=== PATIENT | female | born 1970 | race Caucasian/White ===

== ENCOUNTER 2018-06-30 17:29 | Inpatient (IN) | payer OTHER ==
[~2018-06-30] VITALS: Ht 162.6 cm; Wt 105.2 kg
[~2018-06-30 17:29] MED LIST: ACET500T68 PO; AMIN30LI24 PO; ARGI1POW23 PO; ASCO500T2 PO; BACL10TA PO; BISA10SU2 RC; BUSP15TA PO; CETI10TA16 PO; CITA10TA4 PO; CLOT12CR2 TP; CYAN10002 IM; DAPT350V IV; ERTA1VIA IJ; HYDR28OI2 TP; IRON1CAP27 PO; LACT1CAP21 PO; LACT20SO PO; MULT-638 PO; NA P133E2 RC; NORT25CA PO; OXYC20TA34 PO; OXYC20TA42 PO; OXYC30TA21 PO; PANT20TA2 PO; PEG15DRO5 OP; SALI10002 MM; SENN1TAB9 PO; SILV20CR14 TP; ZINC220C5 PO
[2018-06-30] MEDS ORDERED: IV NORMAL SALINE 1000ML BAG 1,000 ML IV SCH (18:19)
[2018-06-30] MEDS ORDERED: ONDANSETRON PF 4 MG/2 ML VIAL. IV ONE (18:30)
[2018-06-30] MEDS ORDERED: HYDROmorphone 2 MG/ML VIAL IV ONE (18:30)
[2018-06-30] MEDS ORDERED: ALTEPLASE 2 MG VIAL INT CAT ONE (18:45)
--- NOTE | 2018-06-30 18:51 | PHYS DOC ---
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 OSTEOMYELITIS Past Surgical History: No Surgical History Additional Past Surgical Histo: SUPRAPUBIC CATHETER INSERTION Alcohol Use: None Drug Use: Opiates Social History Narrative: OPIATES FOR PAIN CONTROL AT [facility] Adult General Chief Complaint Chief Complaint: URINE CATHETER PROBLEM HPI HPI Patient is a 47-year-old female who presents with report that she has not had any urine from her catheter for the last 3 days. Patient states that she has a history of transverse myelitis and is paraplegic. She states that she recently had a suprapubic catheter placed which had been working well until about 3 days ago. She states that about a week ago she had told the staff at the facility she is a resident at that she thought she had a urinary tract infection and requested them to check her urine but they did not do so. She does indicate that she has an increase in pain in her abdomen as well as her lower back. She states that pain has not been managed with her current regimen of pain medications. Patient does not believe that she has been running a fever. Patient also states that she has been constipated and has not had a bowel movement for the last week. Patient rates her pain at an 8 out of 10. She states that nothing has been improving the pain. She states that since her catheter has not been draining that she has had urine drainage around the outside of the catheter. She states that it has gotten to the point now where her skin is very irritated. Review of Systems Review of Systems Constitutional: Denies fever or chills [] Respiratory: Denies cough or shortness of breath [] Cardiovascular: Denies chest pain[] GI: Complains of abdominal pain with nausea. Denies vomiting or diarrhea. Reports constipation.[] : Complains of urinary retention despite presence of suprapubic catheter[] Musculoskeletal: Complains of lower back pain[] Integument: Complains of rash to the lower abdomen and perineal region.[] All other systems were reviewed and found to be within normal limits, except as documented in this note. Current Medications Current Medications Current Medications Medications (Trade) Dose Ordered Sig/Ren Start Time Stop Time Status Last Admin Dose Admin Acetaminophen (Tylenol) 1,000 mg 1X ONCE 06/30/18 20:30 06/30/18 20:31 DC 10/24/18 20:28 1,000 MG Alteplase, Recombinant (Cathflo) 2 mg 1X ONCE 06/30/18 18:45 06/30/18 18:46 DC 06/30/18 18:40 2 MG Ceftriaxone Sodium 50 ml @ 100 mls/hr 1X ONCE 06/30/18 20:15 06/30/18 20:44 DC 06/30/18 20:07 100 MLS/HR Hydromorphone HCl (Dilaudid) 2 mg 1X ONCE 06/30/18 18:30 06/30/18 18:31 DC 06/30/18 18:39 2 MG Ondansetron HCl (Zofran) 4 mg 1X ONCE 06/30/18 18:30 06/30/18 18:31 DC 06/30/18 18:39 4 MG Sodium Chloride 1,000 ml @ 1,000 mls/hr Q1H 06/30/18 18:19 06/30/18 19:18 DC 06/30/18 18:39 1,000 MLS/HR Allergies Allergies Allergies Coded Allergies Type Severity Reaction Last Updated Verified codeine Allergy Intermediate 04/22/18 Yes fentanyl Allergy Intermediate 04/22/18 Yes metronidazole Allergy Intermediate 04/22/18 Yes morphine Allergy Intermediate 04/22/18 Yes piperacillin Allergy Intermediate 04/22/18 Yes tazobactam Allergy Intermediate 04/22/18 Yes tramadol Allergy Intermediate 04/22/18 Yes I S O L A T I O N *CONTACT* Allergy Unknown 04/26/18 Yes Physical Exam Physical Exam Constitutional: Well developed, well nourished, no acute distress, non-toxic appearance. [] HENT: Normocephalic, atraumatic, bilateral external ears normal, oropharynx moist, no oral exudates, nose normal. [] Eyes: PERRLA, EOMI, conjunctiva normal, no discharge. [] Neck: Normal range of motion, no tenderness, supple, no stridor. [] Cardiovascular:Heart rate regular rhythm [] Lungs & Thorax: Bilateral breath sounds clear to auscultation [] Abdomen: Bowel sounds normal, soft, with lower abdominal tenderness. [] Skin: Warm, dry. [] Extremities: No tenderness, no cyanosis, no clubbing, no edema. [] Neurologic: Alert and oriented X 3. [] Current Patient Data Vital Signs Vital Signs Date Time Temp Pulse Resp B/P (MAP) Pulse Ox O2 Delivery O2 Flow Rate FiO2 06/30/18 18:39 18 99 Room Air 06/30/18 17:40 98.0 90 139/67 (91) 98.0 Lab Values Laboratory Tests Test 06/30/18 19:00 06/30/18 19:30 Urine Collection Type U cath Urine Color Yellow Urine Clarity Cloudy Urine pH 7.0 Urine Specific Blue 1.020 Urine Protein 30 mg/dL (NEG-TRACE) Urine Glucose (UA) Negative mg/dL (NEG) Urine Ketones (Stick) Negative mg/dL (NEG) Urine Blood Large (NEG) Urine Nitrite Positive (NEG) Urine Bilirubin Negative (NEG) Urine Urobilinogen Dipstick 1.0 mg/dL (0.2 mg/dL) Urine Leukocyte Esterase Large (NEG) Urine RBC 20-40 /HPF (0-2) Urine WBC Tntc /HPF (0-4) Urine Squamous Epithelial Cells Mod /LPF Urine Bacteria Many /HPF (0-FEW) Urine Mucus Slight /LPF White Blood Count 6.7 x10^3/uL (4.0-11.0) Red Blood Count 4.40 x10^6/uL (3.50-5.40) Hemoglobin 12.0 g/dL (12.0-15.5) Hematocrit 36.7 % (36.0-47.0) Mean Corpuscular Volume 83 fL (79-100) Mean Corpuscular Hemoglobin 27 pg (25-35) Mean Corpuscular Hemoglobin Concent 33 g/dL (31-37) Red Cell Distribution Width 16.5 % (11.5-14.5) H Platelet Count 386 x10^3/uL (140-400) Neutrophils (%) (Auto) 57 % (31-73) Lymphocytes (%) (Auto) 29 % (24-48) Monocytes (%) (Auto) 5 % (0-9) Eosinophils (%) (Auto) 6 % (0-3) H Basophils (%) (Auto) 3 % (0-3) Neutrophils # (Auto) 3.8 x10^3uL (1.8-7.7) Lymphocytes # (Auto) 2.0 x10^3/uL (1.0-4.8) Monocytes # (Auto) 0.3 x10^3/uL (0.0-1.1) Eosinophils # (Auto) 0.4 x10^3/uL (0.0-0.7) Basophils # (Auto) 0.2 x10^3/uL (0.0-0.2) Sodium Level 142 mmol/L (136-145) Potassium Level 3.6 mmol/L (3.5-5.1) Chloride Level 104 mmol/L (98-107) Carbon Dioxide Level 30 mmol/L (21-32) Anion Gap 8 (6-14) Blood Urea Nitrogen 7 mg/dL (7-20) Creatinine 0.5 mg/dL (0.6-1.0) L Estimated GFR (Cockcroft-Gault) 133.4 BUN/Creatinine Ratio 14 (6-20) Glucose Level 94 mg/dL (70-99) Calcium Level 9.0 mg/dL (8.5-10.1) Total Bilirubin 0.2 mg/dL (0.2-1.0) Aspartate Amino Transferase (AST) 16 U/L (15-37) Alanine Aminotransferase (ALT) 21 U/L (14-59) Alkaline Phosphatase 136 U/L (46-116) H Total Protein 8.0 g/dL (6.4-8.2) Albumin 3.1 g/dL (3.4-5.0) L Albumin/Globulin Ratio 0.6 (1.0-1.7) L Laboratory Tests 06/30/18 19:30 Laboratory Tests 06/30/18 19:30 EKG EKG [] Radiology/Procedures Radiology/Procedures [] Course & Med Decision Making Course & Med Decision Making Pertinent Labs and Imaging studies reviewed. (See chart for details) [] Dragon Disclaimer Dragon Disclaimer This electronic medical record was generated, in whole or in part, using a voice recognition dictation system. Departure Departure Impression: Primary Impression: Urinary tract infection associated with catheterization of urinary tract Additional Impression: Complication, suprapubic catheter obstruction Disposition: ADMITTED INPATIENT Admitting Physician: Iliana Baires Condition: IMPROVED Referrals: NO PCP (PCP) Problem Qualifiers Primary Impression: Urinary tract infection associated with catheterization of urinary tract Indwelling urinary catheter type: unspecified Encounter type: initial encounter Qualified Codes: T83.511A - Infection and inflammatory reaction due to indwelling urethral catheter, initial encounter; N39.0 - Urinary tract infection, site not specified Additional Impression: Complication, suprapubic catheter obstruction Encounter type: initial encounter Qualified Codes: T83.090A - Other mechanical complication of cystostomy catheter, initial encounter FRANCISCO JAVIER VALENCIA Jr., DO Jun 30, 2018 18:51
[2018-06-30 19:14] LABS: BILIRUBIN,URINE NEGATIVE (NEG); CLARITY,URINE CLOUDY; COLOR,URINE YELLOW; NITRITE,URINE POSITIVE (NEG); PROTEIN,URINE 30 mg/dL (NEG-TRACE)
[2018-06-30 19:19] LABS: BACTERIA,URINE MANY /HPF (0-FEW); RBC,URINE 20-40 /HPF (0-2); SQUAMOUS EPITHELIAL CELL,UR MOD /LPF; WBC,URINE TNTC /HPF (0-4)
[2018-06-30 19:43] LABS: BASO # 0.2 x10^3/uL (0.0-0.2); BASO % 3 % (0-3); EOS # 0.4 x10^3/uL (0.0-0.7); EOS % 6 % (0-3); HEMATOCRIT 36.7 % (36.0-47.0); LYMPH % 29 % (24-48); MEAN CORPUSCULAR HEMOGLOBIN 27 pg (25-35); MEAN CORPUSCULAR HGB CONC 33 g/dL (31-37); MEAN CORPUSCULAR VOLUME 83 fL (79-100); MONO # 0.3 x10^3/uL (0.0-1.1); MONO % 5 % (0-9); NEUT # 3.8 x10^3uL (1.8-7.7); NEUT % 57 % (31-73); PLATELET COUNT 386 x10^3/uL (140-400); RED CELL DISTRIBUTION WIDTH 16.5 % (11.5-14.5); WHITE BLOOD COUNT 6.7 x10^3/uL (4.0-11.0)
[2018-06-30 19:50] LABS: CREATININE 0.5 mg/dL (0.6-1.0); GFR 133.4; POTASSIUM 3.6 mmol/L (3.5-5.1)
[2018-06-30 19:56] LABS: ALBUMIN 3.1 g/dL (3.4-5.0); ALBUMIN/GLOBULIN RATIO 0.6 (1.0-1.7); TOTAL BILIRUBIN 0.2 mg/dL (0.2-1.0)
[2018-06-30] MEDS ORDERED: ACETAMINOPHEN 500 MG TABLET PO ONE (20:30)
[2018-06-30] MEDS ORDERED: ONDANSETRON PF 4 MG/2 ML VIAL. IV PRN (22:15)
[2018-06-30] MEDS: HYDROmorphone 2 MG/ML VIAL IV PRN (22:49)
[2018-06-30 23:22] VITALS: BP 132/68
[2018-07-01 04:00] VITALS: BP 102/58
[2018-07-01] MEDS: ACETAMINOPHEN 325 MG TABLET. PO PRN ×2 (04:30→12:34)
[2018-07-01 07:00] VITALS: BP 90/51
[2018-07-01] MEDS: oxyCODONE ER 10 MG TAB.ER.12H PO SCH ×2 (08:20→21:45)
[2018-07-01] MEDS ORDERED: VANCOMYCIN 1 GM in IV NORMAL SALINE 250ML 250 ML IV ONE (10:30)
[2018-07-01] MEDS ORDERED: cefTRIAXone IV Push 1 GM VIAL. IVP SCH (10:45)
[2018-07-01] MEDS ORDERED: VANCOMYCIN PER PHARMACY MC PRN (10:45)
--- NOTE | 2018-07-01 10:47 | PDOC ---
Infectious Disease Note Vital Sign Vital Signs Vital Signs Date Time Temp Pulse Resp B/P (MAP) Pulse Ox O2 Delivery O2 Flow Rate FiO2 07/01/18 08:20 18 Room Air 07/01/18 07:00 98.8 110 90/51 (64) 93 98.8 Labs Lab Laboratory Tests Test 06/30/18 19:00 06/30/18 19:30 07/01/18 04:45 Urine Collection Type U cath Urine Color Yellow Urine Clarity Cloudy Urine pH 7.0 Urine Specific [place] 1.020 Urine Protein 30 mg/dL (NEG-TRACE) Urine Glucose (UA) Negative mg/dL (NEG) Urine Ketones (Stick) Negative mg/dL (NEG) Urine Blood Large (NEG) Urine Nitrite Positive (NEG) Urine Bilirubin Negative (NEG) Urine Urobilinogen Dipstick 1.0 mg/dL (0.2 mg/dL) Urine Leukocyte Esterase Large (NEG) Urine RBC 20-40 /HPF (0-2) Urine WBC Tntc /HPF (0-4) Urine Squamous Epithelial Cells Mod /LPF Urine Bacteria Many /HPF (0-FEW) Urine Mucus Slight /LPF White Blood Count 6.7 x10^3/uL (4.0-11.0) Red Blood Count 4.40 x10^6/uL (3.50-5.40) Hemoglobin 12.0 g/dL (12.0-15.5) Hematocrit 36.7 % (36.0-47.0) Mean Corpuscular Volume 83 fL (79-100) Mean Corpuscular Hemoglobin 27 pg (25-35) Mean Corpuscular Hemoglobin Concent 33 g/dL (31-37) Red Cell Distribution Width 16.5 % (11.5-14.5) Platelet Count 386 x10^3/uL (140-400) Neutrophils (%) (Auto) 57 % (31-73) Lymphocytes (%) (Auto) 29 % (24-48) Monocytes (%) (Auto) 5 % (0-9) Eosinophils (%) (Auto) 6 % (0-3) Basophils (%) (Auto) 3 % (0-3) Neutrophils # (Auto) 3.8 x10^3uL (1.8-7.7) Lymphocytes # (Auto) 2.0 x10^3/uL (1.0-4.8) Monocytes # (Auto) 0.3 x10^3/uL (0.0-1.1) Eosinophils # (Auto) 0.4 x10^3/uL (0.0-0.7) Basophils # (Auto) 0.2 x10^3/uL (0.0-0.2) Sodium Level 142 mmol/L (136-145) Potassium Level 3.6 mmol/L (3.5-5.1) Chloride Level 104 mmol/L (98-107) Carbon Dioxide Level 30 mmol/L (21-32) Anion Gap 8 (6-14) Blood Urea Nitrogen 7 mg/dL (7-20) Creatinine 0.5 mg/dL (0.6-1.0) Estimated GFR (Cockcroft-Gault) 133.4 BUN/Creatinine Ratio 14 (6-20) Glucose Level 94 mg/dL (70-99) Calcium Level 9.0 mg/dL (8.5-10.1) Total Bilirubin 0.2 mg/dL (0.2-1.0) Aspartate Amino Transf (AST/SGOT) 16 U/L (15-37) Alanine Aminotransferase (ALT/SGPT) 21 U/L (14-59) Alkaline Phosphatase 136 U/L (46-116) Total Protein 8.0 g/dL (6.4-8.2) Albumin 3.1 g/dL (3.4-5.0) Albumin/Globulin Ratio 0.6 (1.0-1.7) Lactic Acid Level 1.6 mmol/L (0.4-2.0) Micro Microbiology 06/30/18 Blood Culture - Final, Complete Objective Assessment G neg sepsis UTI with sepsis H/O Sacral osteomyelitis Paraplegia Fever Plan Plan of Care d/c vanc and rocephine meropenem check cultures supportive care fluids ARTURO RIVERA MD Jul 01, 2018 10:47
--- NOTE | 2018-07-01 10:54 | PDOC1 ---
History and Physical Date of Admission Date of Admission DATE: 07/01/18 TIME: 10:54 Identification/Chief Complaint Chief Complaint presented to ER with report that she has not had any urine from her catheter for the last 3 days. has a history of transverse myelitis and is paraplegic. She states that she recently had a suprapubic catheter placed She states that about a week ago she had told the staff at the facility she is a resident at that she thought she had a urinary tract infection and requested them to check her urine but they did not do so. 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 OSTEOMYELITIS Past Surgical History: No Surgical History Additional Past Surgical Histo: SUPRAPUBIC CATHETER INSERTION 2017 Alcohol Use: None Drug Use: Opiates Social History Narrative: OPIATES FOR PAIN CONTROL AT [facility] Cardiovascular: CHF, HTN CENTRAL NERVOUS SYSTEM: Other Musculoskeletal: Muscle atrophy, Weakness, Other Renal/: Other Past Surgical History Past Surgical History: Other, No pertinent history Family History Family History: Cancer, Heart Disease Social History Smoke: No ALCOHOL: none Drugs: None Current Problem List Problem List Problems Medical Problems: (1) Complication, suprapubic catheter obstruction Status: Acute (2) Urinary tract infection associated with catheterization of urinary tract Status: Acute Current Medications Current Medications Current Medications Sodium Chloride 1,000 ml @ 1,000 mls/hr Q1H IV Last administered on at 18:39; Start 06/30/18 at 18:19; Stop 06/30/18 at 19:18; Status DC Hydromorphone HCl (Dilaudid) 2 mg 1X ONCE IV Last administered on 06/30/18at 18:39; Start 06/30/18 at 18:30; Stop 06/30/18 at 18:31; Status DC Ondansetron HCl (Zofran) 4 mg 1X ONCE IV Last administered on 06/30/18at 18:39 ; Start 06/30/18 at 18:30; Stop 06/30/18 at 18:31; Status DC Alteplase, Recombinant (Cathflo) 2 mg 1X ONCE INT CAT Last administered on at 18:40; Start 06/30/18 at 18:45; Stop 06/30/18 at 18:46; Status DC Ceftriaxone Sodium 50 ml @ 100 mls/hr 1X ONCE IV Last administered on at 20:07; Start 06/30/18 at 20:15; Stop 06/30/18 at 20:44; Status DC Acetaminophen (Tylenol) 1,000 mg 1X ONCE PO Last administered on 06/30/18at 20 :28; Start 06/30/18 at 20:30; Stop 06/30/18 at 20:31; Status DC Hydromorphone HCl (Dilaudid) 0.5 mg PRN Q4HRS PRN IV PAIN Last administered on 06/30/18at 22:49; Start 06/30/18 at 22:15 Ondansetron HCl (Zofran) 4 mg PRN Q6HRS PRN IV NAUSEA/VOMITING; Start at 22:15 Oxycodone HCl (Roxicodone) 30 mg PRN Q4HRS PRN PO PAIN SEVERE Last administered on 07/01/18at 06:23; Start 06/30/18 at 23:45 Oxycodone HCl (OxyCONTIN) 20 mg Q12HR PO Last administered on 07/01/18at 08:20 ; Start 07/01/18 at 09:00 Acetaminophen (Tylenol) 650 mg PRN Q6HRS PRN PO FEVER Last administered on at 04:30; Start 07/01/18 at 04:15 Vancomycin HCl 1 gm/Sodium Chloride 250 ml @ 250 mls/hr 1X ONCE IV ; Start at 10:30; Stop 07/01/18 at 11:29; Status UNV Ceftriaxone Sodium 1 gm/ Dextrose 50 ml @ 100 mls/hr Q12H IV ; Start 07/01/18 at 10:30; Status UNV Ceftriaxone Sodium (Rocephin) 1 gm Q12H IVP ; Start 07/01/18 at 10:45; Stop at 10:45; Status DC Vancomycin HCl (Vanco Per Pharmacy) 1 each PRN DAILY PRN MC SEE COMMENTS; Start 07/01/18 at 10:45; Stop 07/01/18 at 10:45; Status DC Vancomycin HCl 2 gm/Sodium Chloride 500 ml @ 250 mls/hr 1X ONCE IV ; Start at 11:00; Stop 07/01/18 at 12:59 Meropenem 500 mg/ Sodium Chloride 50 ml @ 100 mls/hr Q8HRS IV ; Start at 11:00 Active Scripts Active Reported Silvadene (Silver Sulfadiazine) 20 Gm Cream..g. 1 Lisa TP DAILY Lotrimin Af (Clotrimazole) 12 Gm Cream..g. 1 Lisa TP PRN BID PRN Hydrocortisone (Hydrocortisone Acetate) 28 Gm Oint...g. 28 Gm TP PRN TID PRN Cyanocobalamin Injection (Cyanocobalamin (Vitamin B-12)) 1,000 Mcg/1 Ml Vial 1 Ml IM QMONTH Visine Tears Drops (Peg 400/Hypromellose/Glycerin) 15 Ml Drops 15 Ml OP PRN Q2HR PRN Lactulose 20 Gm/30 Ml Solution 10 Gm PO PRN BID PRN Fleet Enema (Na Phos,M-B/Na Phos,Di-Ba) 133 Ml Enema 133 Ml RC PRN PRN Bisacodyl 10 Mg Supp.rect 10 Mg RC PRN DAILY PRN Biotene (Saliva Substitution Combo No.9) 1,000 Ml Mouthwash 1,000 Ml MM PRN Q2HR PRN Baclofen 10 Mg Tablet 1 Tab PO PRN TID PRN Acetaminophen 500 Mg Tablet 2 Tab PO PRN Q6HRS PRN Zinc Sulfate 220 Mg Capsule 220 Mg PO QHS Thera M Plus Tablet (Multivits,Ca,Minerals/Iron/FA) 1 Each Tablet 1 Each PO QHS Nortriptyline Hcl 25 Mg Capsule 1 Cap PO QHS Citalopram Hbr (Citalopram Hydrobromide) 10 Mg Tablet 1 Tab PO QHS Buspirone Hcl 15 Mg Tablet 7.5 Tab PO TID Vitamin C (Ascorbic Acid) 500 Mg Tablet 500 Mg PO BID Senexon-S Tablet (Sennosides/Docusate Sodium) 1 Each Tablet 2 Each PO BID Prosource No Carb Liquid Pkt (Amino Acids/Protein Hydrolys) 30 Ml Liquid.pkt 30 Ml PO BID [place] Packet (Argin/Glut/Cahmb/Collag/Mv-Min) 1 Each Powd.pack 1 Each PO BID Culturelle (Lactobacillus Rhamnosus Gg) 1 Each Capsule 1 Each PO BID Poly-Iron 150 Forte Capsule (Iron Ps Cmplx/Vit B12/Fa) 1 Each Capsule 1 Each PO DAILY Protonix (Pantoprazole Sodium) 20 Mg Tablet.dr 40 Mg PO DAILY Cetirizine Hcl 10 Mg Tablet 1 Tab PO DAILY Roxicodone (Oxycodone Hcl) 30 Mg Tablet 30 Mg PO Q4HRS PRN Oxycontin (Oxycodone HCl) 20 Mg Tab.er.12h 20 Mg PO BID Allergies Allergies: Coded Allergies: codeine (Verified Allergy, Intermediate, 04/22/18) fentanyl (Verified Allergy, Intermediate, 04/22/18) metronidazole (Verified Allergy, Intermediate, 04/22/18) morphine (Verified Allergy, Intermediate, 04/22/18) piperacillin (Verified Allergy, Intermediate, 04/22/18) tazobactam (Verified Allergy, Intermediate, 04/22/18) tramadol (Verified Allergy, Intermediate, 04/22/18) I S O L A T I O N *CONTACT* (Verified Allergy, Unknown, 04/26/18) VRE, ESBL adhesive (Verified Allergy, Unknown, 07/01/18) ROS Review of System Review of Systems Review of Systems Constitutional: fever , chills [] Respiratory: Denies cough or shortness of breath [] Cardiovascular: Denies chest pain[] GI: Complains of abdominal pain with nausea. Denies vomiting or diarrhea. Reports constipation.[] : Complains of urinary retention despite presence of suprapubic catheter[] Musculoskeletal: Complains of lower back pain[] Integument: Complains of rash to the lower abdomen and perineal region.[] 14 pt systems were reviewed and found to be within normal limits, except as documented. Genitourinary: YES Retention Physical Exam Physical Exam Physical Exam Physical Exam Constitutional: Well developed, well nourished, mild acute distress, non-toxic appearance. [] HENT: Normocephalic, atraumatic, bilateral external ears normal, oropharynx moist, no oral exudates, nose normal. [] Eyes: PERRLA, EOMI, conjunctiva normal, no discharge. [] Neck: Normal range of motion, no tenderness, supple, no stridor. [] Cardiovascular:Heart rate regular rhythm [] Lungs & Thorax: Bilateral breath sounds clear to auscultation [] Abdomen: Bowel sounds normal, soft, with lower abdominal tenderness. [] Skin: Warm, dry. [] Extremities: No tenderness, no cyanosis, no clubbing, no edema. [] Neurologic: Alert and oriented X 3. [] General: Oriented X3, Cooperative HEENT: Atraumatic, PERRLA Lungs: Clear to auscultation Heart: S1S2 PELVIC: Examination not indicated Extremities: No clubbing, No cyanosis Neuro: Cranial nerves 3-12 NL Psych/Mental Status: Mental status NL, Mood NL Vitals Vitals Vital Signs Date Time Temp Pulse Resp B/P (MAP) Pulse Ox O2 Delivery O2 Flow Rate FiO2 07/01/18 08:20 18 Room Air 07/01/18 07:00 98.8 110 90/51 (64) 93 98.8 Labs Labs Laboratory Tests Test 06/30/18 19:00 06/30/18 19:30 07/01/18 04:45 Urine Collection Type U cath Urine Color Yellow Urine Clarity Cloudy Urine pH 7.0 Urine Specific Rule 1.020 Urine Protein 30 mg/dL (NEG-TRACE) Urine Glucose (UA) Negative mg/dL (NEG) Urine Ketones (Stick) Negative mg/dL (NEG) Urine Blood Large (NEG) Urine Nitrite Positive (NEG) Urine Bilirubin Negative (NEG) Urine Urobilinogen Dipstick 1.0 mg/dL (0.2 mg/dL) Urine Leukocyte Esterase Large (NEG) Urine RBC 20-40 /HPF (0-2) Urine WBC Tntc /HPF (0-4) Urine Squamous Epithelial Cells Mod /LPF Urine Bacteria Many /HPF (0-FEW) Urine Mucus Slight /LPF White Blood Count 6.7 x10^3/uL (4.0-11.0) Red Blood Count 4.40 x10^6/uL (3.50-5.40) Hemoglobin 12.0 g/dL (12.0-15.5) Hematocrit 36.7 % (36.0-47.0) Mean Corpuscular Volume 83 fL (79-100) Mean Corpuscular Hemoglobin 27 pg (25-35) Mean Corpuscular Hemoglobin Concent 33 g/dL (31-37) Red Cell Distribution Width 16.5 % (11.5-14.5) Platelet Count 386 x10^3/uL (140-400) Neutrophils (%) (Auto) 57 % (31-73) Lymphocytes (%) (Auto) 29 % (24-48) Monocytes (%) (Auto) 5 % (0-9) Eosinophils (%) (Auto) 6 % (0-3) Basophils (%) (Auto) 3 % (0-3) Neutrophils # (Auto) 3.8 x10^3uL (1.8-7.7) Lymphocytes # (Auto) 2.0 x10^3/uL (1.0-4.8) Monocytes # (Auto) 0.3 x10^3/uL (0.0-1.1) Eosinophils # (Auto) 0.4 x10^3/uL (0.0-0.7) Basophils # (Auto) 0.2 x10^3/uL (0.0-0.2) Sodium Level 142 mmol/L (136-145) Potassium Level 3.6 mmol/L (3.5-5.1) Chloride Level 104 mmol/L (98-107) Carbon Dioxide Level 30 mmol/L (21-32) Anion Gap 8 (6-14) Blood Urea Nitrogen 7 mg/dL (7-20) Creatinine 0.5 mg/dL (0.6-1.0) Estimated GFR (Cockcroft-Gault) 133.4 BUN/Creatinine Ratio 14 (6-20) Glucose Level 94 mg/dL (70-99) Calcium Level 9.0 mg/dL (8.5-10.1) Total Bilirubin 0.2 mg/dL (0.2-1.0) Aspartate Amino Transf (AST/SGOT) 16 U/L (15-37) Alanine Aminotransferase (ALT/SGPT) 21 U/L (14-59) Alkaline Phosphatase 136 U/L (46-116) Total Protein 8.0 g/dL (6.4-8.2) Albumin 3.1 g/dL (3.4-5.0) Albumin/Globulin Ratio 0.6 (1.0-1.7) Lactic Acid Level 1.6 mmol/L (0.4-2.0) Laboratory Tests Test 06/30/18 19:00 06/30/18 19:30 07/01/18 04:45 Urine Collection Type U cath Urine Color Yellow Urine Clarity Cloudy Urine pH 7.0 Urine Specific Rule 1.020 Urine Protein 30 mg/dL (NEG-TRACE) Urine Glucose (UA) Negative mg/dL (NEG) Urine Ketones (Stick) Negative mg/dL (NEG) Urine Blood Large (NEG) Urine Nitrite Positive (NEG) Urine Bilirubin Negative (NEG) Urine Urobilinogen Dipstick 1.0 mg/dL (0.2 mg/dL) Urine Leukocyte Esterase Large (NEG) Urine RBC 20-40 /HPF (0-2) Urine WBC Tntc /HPF (0-4) Urine Squamous Epithelial Cells Mod /LPF Urine Bacteria Many /HPF (0-FEW) Urine Mucus Slight /LPF White Blood Count 6.7 x10^3/uL (4.0-11.0) Red Blood Count 4.40 x10^6/uL (3.50-5.40) Hemoglobin 12.0 g/dL (12.0-15.5) Hematocrit 36.7 % (36.0-47.0) Mean Corpuscular Volume 83 fL (79-100) Mean Corpuscular Hemoglobin 27 pg (25-35) Mean Corpuscular Hemoglobin Concent 33 g/dL (31-37) Red Cell Distribution Width 16.5 % (11.5-14.5) Platelet Count 386 x10^3/uL (140-400) Neutrophils (%) (Auto) 57 % (31-73) Lymphocytes (%) (Auto) 29 % (24-48) Monocytes (%) (Auto) 5 % (0-9) Eosinophils (%) (Auto) 6 % (0-3) Basophils (%) (Auto) 3 % (0-3) Neutrophils # (Auto) 3.8 x10^3uL (1.8-7.7) Lymphocytes # (Auto) 2.0 x10^3/uL (1.0-4.8) Monocytes # (Auto) 0.3 x10^3/uL (0.0-1.1) Eosinophils # (Auto) 0.4 x10^3/uL (0.0-0.7) Basophils # (Auto) 0.2 x10^3/uL (0.0-0.2) Sodium Level 142 mmol/L (136-145) Potassium Level 3.6 mmol/L (3.5-5.1) Chloride Level 104 mmol/L (98-107) Carbon Dioxide Level 30 mmol/L (21-32) Anion Gap 8 (6-14) Blood Urea Nitrogen 7 mg/dL (7-20) Creatinine 0.5 mg/dL (0.6-1.0) Estimated GFR (Cockcroft-Gault) 133.4 BUN/Creatinine Ratio 14 (6-20) Glucose Level 94 mg/dL (70-99) Calcium Level 9.0 mg/dL (8.5-10.1) Total Bilirubin 0.2 mg/dL (0.2-1.0) Aspartate Amino Transf (AST/SGOT) 16 U/L (15-37) Alanine Aminotransferase (ALT/SGPT) 21 U/L (14-59) Alkaline Phosphatase 136 U/L (46-116) Total Protein 8.0 g/dL (6.4-8.2) Albumin 3.1 g/dL (3.4-5.0) Albumin/Globulin Ratio 0.6 (1.0-1.7) Lactic Acid Level 1.6 mmol/L (0.4-2.0) VTE Prophylaxis Ordered VTE Prophylaxis Devices: Yes VTE Pharmacological Prophylaxi: Yes Assessment/Plan Assessment/Plan IMPRESSION G neg sepsis UTI H/O Sacral osteomyelitis Paraplegia Fever Plan meropenem IV check cultures, BLOOD, URINE supportive care lactic acid frequent labs ID CONSULT UROLOGY CONSULT IV FLUIDS LOVENOX DVT PROPHYLAXIS ZENY CALI MD Jul 01, 2018 10:54
[2018-07-01 11:00] VITALS: BP 101/46
[2018-07-01] MEDS ORDERED: VANCOMYCIN 2 GM in IV NORMAL SALINE 500ML BAG 500 ML IV ONE (11:00)
[2018-07-01] MEDS: MEROPENEM 500 MG in IV NORMAL SALINE 50ML 50 ML IV SCH ×2 (13:13→21:46)
[2018-07-01] MEDS ORDERED: BISACODYL 10 MG SUPP.RECT. RC PRN (13:30)
[2018-07-01] MEDS ORDERED: LACTULOSE 20 GM/30 ML SOLUTION. PO PRN (13:30)
[2018-07-01] MEDS ORDERED: SODIUM PHOSPHATES 19/7GM 133 ML ENEMA. RC PRN (13:30)
[2018-07-01] MEDS ORDERED: CLOTRIMAZOLE 1% TOPICAL CREAM 15GM TUBE. TP PRN (13:30)
[2018-07-01 15:00] VITALS: BP 111/49
[2018-07-01] MEDS ORDERED: SALIVA STIMULANT AGENT 44ML SPRAY BOTTLE. PO PRN ×2 (15:00→15:30)
[2018-07-01] MEDS ORDERED: HYDROCORTISONE 1% TOPICAL CREAM 30GM TUBE. TP PRN (15:00)
[2018-07-01] MEDS ORDERED: MULTIVITAMIN with MINERAL TABLET. PO SCH (15:00)
[2018-07-01] MEDS ORDERED: POLYVINYL ALCOHOL 1.4% OPHTH SOLUTION 15ML BOTTLE. OU PRN (15:00)
[2018-07-01] MEDS ORDERED: CYANOCOBALAMIN (VITAMIN B-12) 1,000 MCG/ML VIAL IM SCH (15:00)
[2018-07-01] MEDS: busPIRone 5 MG TABLET. PO SCH ×2 (16:07→21:45)
[2018-07-01] MEDS: PANTOPRAZOLE 40 MG TABLET.DR. PO SCH (16:08)
[2018-07-01] MEDS: ACETAMINOPHEN 500 MG TABLET PO PRN ×2 (16:08→21:57)
[2018-07-01] MEDS: CETIRIZINE HCL 10 MG TABLET. PO SCH (16:08)
[2018-07-01] MEDS: IRON POLYSACCHARIDE COMPLEX 150 MG CAPSULE PO SCH (16:09)
[2018-07-01] MEDS: ENOXAPARIN 40 MG/0.4 ML SYRINGE. SQ SCH ×2 (16:10→21:46)
[2018-07-01] MEDS: silver sulfADIAZINE 1% CREAM 25GM TUBE. TP SCH ×3 (16:11→20:31)
[2018-07-01] MEDS: IV NORMAL SALINE 1000ML BAG 1,000 ML IV SCH (16:13)
[2018-07-01 19:00] VITALS: BP 118/58
--- NOTE | 2018-07-01 19:01 | PDOC2 ---
UROLOGY CONSULT Date of Consult Date of Consult DATE: 07/01/18 TIME: 18:51 Identification/Chief Complaint Chief Complaint suprapubic catheter not draining Source Source: Patient History of Present Illness Reason for Visit: 47 yo female paraplegic, admitted for febrile UTI and SP catheter not draining. Had SP tube placed by Dr. Reid 4 weeks ago - was functioning well until 3 days ago, then stopped draining and she started leaking from urethra and around SP tube. Urethral steen placed in ER yesterday, which is draining well. Today she reports mild abdominal discomfort but no other complaints. She states that Dr. Reid was planning to increase size of SP catheter from 16 Fr to 18 Fr. Has had mild hematuria along with cloudy urine. Past Medical History Cardiovascular: CHF, HTN CENTRAL NERVOUS SYSTEM: Other Musculoskeletal: Muscle atrophy, Weakness, Other Renal/: Other Past Surgical History Past Surgical History: Other, No pertinent history Family History Family History: Cancer, Heart Disease Social History No ALCOHOL: none Drugs: None Lives: Long Term Current Medications Current Medications Current Medications Acetaminophen (Tylenol) 650 mg PRN Q6HRS PRN PO FEVER Last administered on at 12:34; Start 07/01/18 at 04:15; Stop 07/01/18 at 13:59; Status DC Acetaminophen (Tylenol) 1,000 mg 1X ONCE PO Last administered on 06/30/18at 20 :28; Start 06/30/18 at 20:30; Stop 06/30/18 at 20:31; Status DC Acetaminophen (Tylenol) 1,000 mg PRN Q6HRS PRN PO MILD PAIN / TEMP Last administered on 07/01/18at 16:08; Start 07/01/18 at 13:30 Artificial Tears (Artificial Tears) 1 drop PRN Q2HRS PRN OU DRY EYE; Start at 15:00; Status Cancel Artificial Tears (Artificial Tears) 1 drop PRN Q2HRS PRN OU DRY EYE; Start at 15:15 Ascorbic Acid (Vitamin C) 500 mg BID PO ; Start 07/01/18 at 21:00 Baclofen (Lioresal) 10 mg PRN TID PRN PO MUSCLE SPASMS; Start 07/01/18 at 13: 30 Bisacodyl (Dulcolax Supp) 10 mg PRN DAILY PRN RC CONSTIPATION; Start 07/01/18 at 13:30 Buspirone HCl (Buspar) 7.5 mg TID PO Last administered on 07/01/18at 16:07; Start 07/01/18 at 15:00 Ceftriaxone Sodium 1 gm/ Dextrose 50 ml @ 100 mls/hr Q12H IV ; Start 07/01/18 at 10:30; Status UNV Ceftriaxone Sodium 50 ml @ 100 mls/hr 1X ONCE IV Last administered on at 20:07; Start 06/30/18 at 20:15; Stop 06/30/18 at 20:44; Status DC Ceftriaxone Sodium (Rocephin) 1 gm Q12H IVP ; Start 07/01/18 at 10:45; Stop at 10:45; Status DC Cetirizine HCl (ZyrTEC) 10 mg DAILY PO Last administered on 07/01/18at 16:08; Start 07/01/18 at 14:01 Citalopram Hydrobromide (CeleXA) 10 mg QHS PO ; Start 07/01/18 at 21:00 Clotrimazole (Lotrimin) 1 rosy PRN BID PRN TP RASH; Start 07/01/18 at 13:30 Cyanocobalamin (Vitamin B-12) 1,000 mcg QMONTH IM Last administered on at 16:10; Start 07/01/18 at 15:00 Enoxaparin Sodium (Lovenox 40mg Syringe) 40 mg BID SQ Last administered on at 16:10; Start 07/01/18 at 15:00 Hydrocortisone (Cortaid) 1 rosy PRN TID PRN TP ITCHING; Start 07/01/18 at 15:00 Hydromorphone HCl (Dilaudid) 0.5 mg PRN Q4HRS PRN IV PAIN Last administered on 06/30/18at 22:49; Start 06/30/18 at 22:15 Lactobacillus Rhamnosus (Culturelle) 1 cap BID PO ; Start 07/01/18 at 21:00 Lactulose (Lactulose) 10 gm PRN BID PRN PO CONSTIPATION; Start 07/01/18 at 13: 30 Meropenem 500 mg/ Sodium Chloride 50 ml @ 100 mls/hr Q8HRS IV Last administered on 07/01/18at 13:13; Start 07/01/18 at 11:00 Multivitamins (Thera M Plus) 1 tab DAILY PO ; Start 07/01/18 at 15:00; Status Cancel Multivitamins (Thera M Plus) 1 tab QHS PO ; Start 07/01/18 at 21:00 Non-Formulary Medication (Amino Acids/ Protein Hydrolys (Prosource No Carb Liquid Pkt)) 30 ml BID PO ; Start 07/01/18 at 21:00; Status UNV Nortriptyline HCl (Pamelor) 25 mg QHS PO ; Start 07/01/18 at 21:00 Ondansetron HCl (Zofran) 4 mg PRN Q6HRS PRN IV NAUSEA/VOMITING; Start at 22:15 Oxycodone HCl (OxyCONTIN) 20 mg Q12HR PO Last administered on 07/01/18at 08:20 ; Start 07/01/18 at 09:00 Oxycodone HCl (Roxicodone) 30 mg PRN Q4HRS PRN PO PAIN SEVERE Last administered on 07/01/18at 16:09; Start 06/30/18 at 23:45 Pantoprazole Sodium (Protonix) 40 mg DAILYAC PO Last administered on at 16:08; Start 07/01/18 at 16:30 Polysaccharide Iron Complex (Niferex 150) 150 mg DAILY PO Last administered on 07/01/18at 16:09; Start 07/01/18 at 15:00 Saliva Substitute (Biotene Moisturizing Mouth) 2 spray PRN Q2HRS PRN PO DRY MOUTH; Start 07/01/18 at 15:00; Status Cancel Saliva Substitute (Biotene Moisturizing Mouth) 2 spray PRN Q2HRS PRN PO DRY MOUTH; Start 07/01/18 at 15:30 Senna/Docusate Sodium (Senna Plus) 2 tab BID PO ; Start 07/01/18 at 21:00 Silver Sulfadiazine (Silvadene) 1 rosy DAILY TP ; Start 07/01/18 at 15:00 Sodium Monofluorophosphate (Fleet Adult) 133 ml 1X PRN PRN RC CONSTIPATION; Start 07/01/18 at 13:30 Sodium Chloride 1,000 ml @ 100 mls/hr Q10H IV Last administered on 07/01/18at 16:13; Start 07/01/18 at 13:45 Vancomycin HCl (Vanco Per Pharmacy) 1 each PRN DAILY PRN MC SEE COMMENTS; Start 07/01/18 at 10:45; Stop 07/01/18 at 10:45; Status DC Vancomycin HCl 1 gm/Sodium Chloride 250 ml @ 250 mls/hr 1X ONCE IV ; Start at 10:30; Stop 07/01/18 at 11:29; Status UNV Vancomycin HCl 2 gm/Sodium Chloride 500 ml @ 250 mls/hr 1X ONCE IV Last administered on 07/01/18at 11:05; Start 07/01/18 at 11:00; Stop 07/01/18 at 12 :59; Status DC Zinc Sulfate (Orazinc) 220 mg QHS PO ; Start 07/01/18 at 21:00 Allergies Allergies: Coded Allergies: codeine (Verified Allergy, Intermediate, 04/22/18) fentanyl (Verified Allergy, Intermediate, 04/22/18) metronidazole (Verified Allergy, Intermediate, 04/22/18) morphine (Verified Allergy, Intermediate, 04/22/18) piperacillin (Verified Allergy, Intermediate, 04/22/18) tazobactam (Verified Allergy, Intermediate, 04/22/18) tramadol (Verified Allergy, Intermediate, 04/22/18) I S O L A T I O N *CONTACT* (Verified Allergy, Unknown, 04/26/18) VRE, ESBL adhesive (Verified Allergy, Unknown, 07/01/18) ROS Review Of Systems: Except as noted above: CONSTITUTIONAL: No fever or chill EYES: No recent changes SKIN: No rash or itching CARDIOVASCULAR: No chest pain, syncope, palpitations, or edema RESPIRATORY: No SOB or cough GASTROINTESTINAL: No nausea, vomiting or abdominal pain NEUROLOGICAL: No headaches or weakness ENDOCRINE: No cold or heat intolerance GENITOURINARY: No urgency or frequency of urination MUSCULOSKELETAL: parapalegic LYMPHATICS: No enlarged lymph nodes PSYCHIATRIC: No anxiety or depression Physical Exam Physical Exam: General: Pleasant, no acute distress, well groomed Eyes: conjunctiva anicteric, eyes full range of motion ENT: moist oral mucosa, normal dentition Neck: Trachea midline, no masses Respiratory: unlabored breathing, not using accessory muscles, no crackles or wheezes Cardiovascular: Regular rate and rhythm, no peripheral edema Abdomen: nontender, nondistended, no hepatosplenomegaly, no masses No skin rashes noted SP tube in place, not draining. Psych: normal mood, affect. Alert and oriented x 3. Vitals VITALS Vital Signs Date Time Temp Pulse Resp B/P (MAP) Pulse Ox O2 Delivery O2 Flow Rate FiO2 07/01/18 17:09 18 Room Air 07/01/18 15:00 99.3 87 111/49 (69) 95 99.3 Labs Labs Laboratory Tests Test 06/30/18 19:00 06/30/18 19:30 07/01/18 01:20 07/01/18 04:45 Urine Collection Type U cath Urine Color Yellow Urine Clarity Cloudy Urine pH 7.0 Urine Specific Mobile 1.020 Urine Protein 30 mg/dL (NEG-TRACE) Urine Glucose (UA) Negative mg/dL (NEG) Urine Ketones (Stick) Negative mg/dL (NEG) Urine Blood Large (NEG) Urine Nitrite Positive (NEG) Urine Bilirubin Negative (NEG) Urine Urobilinogen Dipstick 1.0 mg/dL (0.2 mg/dL) Urine Leukocyte Esterase Large (NEG) Urine RBC 20-40 /HPF (0-2) Urine WBC Tntc /HPF (0-4) Urine Squamous Epithelial Cells Mod /LPF Urine Bacteria Many /HPF (0-FEW) Urine Mucus Slight /LPF White Blood Count 6.7 x10^3/uL (4.0-11.0) Red Blood Count 4.40 x10^6/uL (3.50-5.40) Hemoglobin 12.0 g/dL (12.0-15.5) Hematocrit 36.7 % (36.0-47.0) Mean Corpuscular Volume 83 fL (79-100) Mean Corpuscular Hemoglobin 27 pg (25-35) Mean Corpuscular Hemoglobin Concent 33 g/dL (31-37) Red Cell Distribution Width 16.5 % (11.5-14.5) Platelet Count 386 x10^3/uL (140-400) Neutrophils (%) (Auto) 57 % (31-73) Lymphocytes (%) (Auto) 29 % (24-48) Monocytes (%) (Auto) 5 % (0-9) Eosinophils (%) (Auto) 6 % (0-3) Basophils (%) (Auto) 3 % (0-3) Neutrophils # (Auto) 3.8 x10^3uL (1.8-7.7) Lymphocytes # (Auto) 2.0 x10^3/uL (1.0-4.8) Monocytes # (Auto) 0.3 x10^3/uL (0.0-1.1) Eosinophils # (Auto) 0.4 x10^3/uL (0.0-0.7) Basophils # (Auto) 0.2 x10^3/uL (0.0-0.2) Sodium Level 142 mmol/L (136-145) Potassium Level 3.6 mmol/L (3.5-5.1) Chloride Level 104 mmol/L (98-107) Carbon Dioxide Level 30 mmol/L (21-32) Anion Gap 8 (6-14) Blood Urea Nitrogen 7 mg/dL (7-20) Creatinine 0.5 mg/dL (0.6-1.0) Estimated GFR (Cockcroft-Gault) 133.4 BUN/Creatinine Ratio 14 (6-20) Glucose Level 94 mg/dL (70-99) Calcium Level 9.0 mg/dL (8.5-10.1) Total Bilirubin 0.2 mg/dL (0.2-1.0) Aspartate Amino Transf (AST/SGOT) 16 U/L (15-37) Alanine Aminotransferase (ALT/SGPT) 21 U/L (14-59) Alkaline Phosphatase 136 U/L (46-116) Total Protein 8.0 g/dL (6.4-8.2) Albumin 3.1 g/dL (3.4-5.0) Albumin/Globulin Ratio 0.6 (1.0-1.7) Nasal Screen MRSA (PCR) Negative (Negative) Lactic Acid Level 1.6 mmol/L (0.4-2.0) Laboratory Tests Test 06/30/18 19:00 06/30/18 19:30 07/01/18 01:20 07/01/18 04:45 Urine Collection Type U cath Urine Color Yellow Urine Clarity Cloudy Urine pH 7.0 Urine Specific Mobile 1.020 Urine Protein 30 mg/dL (NEG-TRACE) Urine Glucose (UA) Negative mg/dL (NEG) Urine Ketones (Stick) Negative mg/dL (NEG) Urine Blood Large (NEG) Urine Nitrite Positive (NEG) Urine Bilirubin Negative (NEG) Urine Urobilinogen Dipstick 1.0 mg/dL (0.2 mg/dL) Urine Leukocyte Esterase Large (NEG) Urine RBC 20-40 /HPF (0-2) Urine WBC Tntc /HPF (0-4) Urine Squamous Epithelial Cells Mod /LPF Urine Bacteria Many /HPF (0-FEW) Urine Mucus Slight /LPF White Blood Count 6.7 x10^3/uL (4.0-11.0) Red Blood Count 4.40 x10^6/uL (3.50-5.40) Hemoglobin 12.0 g/dL (12.0-15.5) Hematocrit 36.7 % (36.0-47.0) Mean Corpuscular Volume 83 fL (79-100) Mean Corpuscular Hemoglobin 27 pg (25-35) Mean Corpuscular Hemoglobin Concent 33 g/dL (31-37) Red Cell Distribution Width 16.5 % (11.5-14.5) Platelet Count 386 x10^3/uL (140-400) Neutrophils (%) (Auto) 57 % (31-73) Lymphocytes (%) (Auto) 29 % (24-48) Monocytes (%) (Auto) 5 % (0-9) Eosinophils (%) (Auto) 6 % (0-3) Basophils (%) (Auto) 3 % (0-3) Neutrophils # (Auto) 3.8 x10^3uL (1.8-7.7) Lymphocytes # (Auto) 2.0 x10^3/uL (1.0-4.8) Monocytes # (Auto) 0.3 x10^3/uL (0.0-1.1) Eosinophils # (Auto) 0.4 x10^3/uL (0.0-0.7) Basophils # (Auto) 0.2 x10^3/uL (0.0-0.2) Sodium Level 142 mmol/L (136-145) Potassium Level 3.6 mmol/L (3.5-5.1) Chloride Level 104 mmol/L (98-107) Carbon Dioxide Level 30 mmol/L (21-32) Anion Gap 8 (6-14) Blood Urea Nitrogen 7 mg/dL (7-20) Creatinine 0.5 mg/dL (0.6-1.0) Estimated GFR (Cockcroft-Gault) 133.4 BUN/Creatinine Ratio 14 (6-20) Glucose Level 94 mg/dL (70-99) Calcium Level 9.0 mg/dL (8.5-10.1) Total Bilirubin 0.2 mg/dL (0.2-1.0) Aspartate Amino Transf (AST/SGOT) 16 U/L (15-37) Alanine Aminotransferase (ALT/SGPT) 21 U/L (14-59) Alkaline Phosphatase 136 U/L (46-116) Total Protein 8.0 g/dL (6.4-8.2) Albumin 3.1 g/dL (3.4-5.0) Albumin/Globulin Ratio 0.6 (1.0-1.7) Nasal Screen MRSA (PCR) Negative (Negative) Lactic Acid Level 1.6 mmol/L (0.4-2.0) Assessment/Plan Assessment/Plan SP catheter exchanged for new 18 Fr catheter - draining light red clear urine. Urethral steen removed. Followup with Dr. Reid in 1 month for SP tube change. Call with questions. KVNG ROMAN MD Jul 01, 2018 19:01
[2018-07-01] MEDS ORDERED: [UNRECOGNIZED DRUG - REMARK] PO SCH (21:00)
[2018-07-01] MEDS: SENNOSIDES/DOCUSATE 8.6/50MG TABLET. PO SCH (21:44)
[2018-07-01] MEDS: ZINC SULFATE 220 MG CAPSULE. PO SCH (21:44)
[2018-07-01] MEDS: ASCORBIC ACID 500 MG TABLET PO SCH (21:44)
[2018-07-01] MEDS: LACTOBACILLUS RHAMNOSUS GG 1 CAPSULE. PO SCH (21:44)
[2018-07-01] MEDS: CITALOPRAM 10 MG TABLET. PO SCH (21:45)
[2018-07-01] MEDS: MULTIVITAMIN with MINERAL TABLET. PO SCH (21:45)
[2018-07-01] MEDS: NORTRIPTYLINE 25 MG CAPSULE PO SCH (21:45)
[2018-07-01] MEDS: NYSTATIN TOPICAL POWDER 15GM BOTTLE. TP SCH (21:57)
[2018-07-01 23:02] VITALS: BP 123/64
[2018-07-02] MEDS: IV NORMAL SALINE 1000ML BAG 1,000 ML IV SCH ×3 (00:54→19:54)
--- NOTE | 2018-07-02 00:54 | CONS ---
DATE OF CONSULTATION: 07/01/2018 REQUESTING PHYSICIAN: Dr. Baires. REASON FOR CONSULTATION: Blood culture positive with sepsis. HISTORY OF PRESENT ILLNESS: This is a 47-year-old female with a history of paraplegia who has also had a suprapubic catheter as well as the patient has sacral osteomyelitis. The patient is known to us. The patient was treated by us in the hospital, but she never came back to follow up and she says she finished 6 weeks course of IV antibiotics. The patient now comes in with 3-day history of not feeling well, overall body ache, fever and chills. The patient's blood culture is positive with gram-negative ziyad. Also, abnormal urinalysis. The patient has been put on Rocephin and vancomycin and consult has been requested. The patient denies any nausea, vomiting, diarrhea, chest pain or shortness of breath. Some diffuse abdominal pain present. The patient says she does have a leaky catheter, has suprapubic leaking. The patient also was seen by Urology last time and she was supposed to go follow up, which she did not do. PAST MEDICAL HISTORY: Positive for T9 paraplegia from transverse myelitis, also has hypertension and congestive heart failure. She has had osteomyelitis in the past and had a flap surgery done in the past. Also has neurogenic bladder and has a chronic suprapubic catheter in place, chronic pain syndrome. SOCIAL HISTORY: Negative for smoking, alcohol or illicit drug use. The patient is a jail resident. ALLERGIES: SHE HAS LISTED ALLERGIC TO ZOSYN AND FLAGYL. CURRENT MEDICATIONS: Reviewed. The patient is on vancomycin and Rocephin. REVIEW OF SYSTEMS: As per HPI. All other systems reviewed and are negative. PHYSICAL EXAMINATION: GENERAL: On examination, alert and oriented female, not in any distress. VITAL SIGNS: Stable with a T-max 101.5, pulse 110, respirations 18 and blood pressure 90/51. HEENT EXAMINATION: Both pupils are round and reacting. No conjunctival lesion, no lesion in the mouth. NECK: Supple. No JVP, no lymphadenopathy. LUNGS: Clear. HEART: S1 and S2 regular. ABDOMEN: Benign. EXTREMITIES: No edema or cyanosis. SKIN EXAMINATION: Unremarkable, except the sacral area. She has sacral decubitus, which is to the bone. All the exam was done with IGOR Frias. The patient is paraplegic. The patient does have suprapubic catheter, which is stitched in place and there is some leakage around it. LABORATORY DATA: White count is 6.7. BUN and creatinine are normal. Her urinalysis is showing too numerous to count wbc's. Her blood culture is positive with gram-negative ziyad. Further identification is pending. The patient has had Proteus last time, which was multi-resistant. IMPRESSION: 1. Gram-negative sepsis. 2. Urinary tract infection with sepsis. 3. History of sacral osteomyelitis, which is chronic now and she needs a flap surgery for it to heal. 4. Paraplegia. 5. Fever. RECOMMENDATIONS: Discontinue vancomycin, discontinue Rocephin. Start meropenem. We will check the cultures and adjust, supportive care. Get Urology to look into the leaky catheter. The patient was told the last time that she is going need a plastic surgery to go and have a flap done if she wants that wound to heal and she knows that. She has heard that before and she says that she has not had a chance to do it yet, but she is planning to go through for Plastic Surgery to fix the wound. Thank you very much, Dr. Baires, for giving me the opportunity to participate in this patient's care. ARTURO RIVERA MD DR: RESHMA/bri JOB#: [id number] / [id number]
[2018-07-02 03:33] VITALS: BP 114/66
[2018-07-02] MEDS: MEROPENEM 500 MG in IV NORMAL SALINE 50ML 50 ML IV SCH ×3 (05:26→19:47)
[2018-07-02 05:47] LABS: BASO # 0.1 x10^3/uL (0.0-0.2); BASO % 1 % (0-3); EOS # 0.2 x10^3/uL (0.0-0.7); EOS % 2 % (0-3); HEMATOCRIT 29.2 % (36.0-47.0); HEMOGLOBIN 9.5 g/dL (12.0-15.5); LYMPH # 1.4 x10^3/uL (1.0-4.8); LYMPH % 15 % (24-48); MEAN CORPUSCULAR HEMOGLOBIN 27 pg (25-35); MEAN CORPUSCULAR HGB CONC 33 g/dL (31-37); MEAN CORPUSCULAR VOLUME 83 fL (79-100); MONO # 0.4 x10^3/uL (0.0-1.1); MONO % 4 % (0-9); NEUT # 7.5 x10^3uL (1.8-7.7); NEUT % 78 % (31-73); PLATELET COUNT 225 x10^3/uL (140-400); RED BLOOD COUNT 3.51 x10^6/uL (3.50-5.40); RED CELL DISTRIBUTION WIDTH 16.8 % (11.5-14.5); WHITE BLOOD COUNT 9.6 x10^3/uL (4.0-11.0)
[2018-07-02 06:12] LABS: ALBUMIN 1.9 g/dL (3.4-5.0); ALBUMIN/GLOBULIN RATIO 0.5 (1.0-1.7); CALCIUM 7.8 mg/dL (8.5-10.1); CREATININE 0.4 mg/dL (0.6-1.0); GFR 172.6; TOTAL BILIRUBIN 0.1 mg/dL (0.2-1.0); TOTAL PROTEIN 5.9 g/dL (6.4-8.2)
[2018-07-02 06:21] LABS: POTASSIUM 2.8 mmol/L (3.5-5.1)
[2018-07-02 07:00] VITALS: BP 125/74
[2018-07-02] MEDS ORDERED: POTASSIUM CHLORIDE 20 MEQ TABLET.ER. PO ONE (07:30)
[2018-07-02] MEDS: CETIRIZINE HCL 10 MG TABLET. PO SCH (08:45)
[2018-07-02] MEDS: LACTOBACILLUS RHAMNOSUS GG 1 CAPSULE. PO SCH ×2 (08:45→19:46)
[2018-07-02] MEDS: ASCORBIC ACID 500 MG TABLET PO SCH ×2 (08:45→19:45)
[2018-07-02] MEDS: IRON POLYSACCHARIDE COMPLEX 150 MG CAPSULE PO SCH (08:45)
[2018-07-02] MEDS: busPIRone 5 MG TABLET. PO SCH ×3 (08:45→19:46)
[2018-07-02] MEDS: PANTOPRAZOLE 40 MG TABLET.DR. PO SCH (08:45)
[2018-07-02] MEDS: SENNOSIDES/DOCUSATE 8.6/50MG TABLET. PO SCH ×2 (08:46→19:47)
[2018-07-02] MEDS: oxyCODONE ER 10 MG TAB.ER.12H PO SCH ×2 (08:46→19:46)
[2018-07-02] MEDS: ENOXAPARIN 40 MG/0.4 ML SYRINGE. SQ SCH ×2 (08:47→19:45)
[2018-07-02] MEDS: NYSTATIN TOPICAL POWDER 15GM BOTTLE. TP SCH ×2 (09:00→19:54)
--- NOTE | 2018-07-02 09:56 | PDOC ---
Infectious Disease Note Subjective Subjective pt is feeling better, no more chills, fever improved, though c/o cp with deep breathing, same as she says had pneumonia ROS ROS no n/v/d/ cough Vital Sign Vital Signs Vital Signs Date Time Temp Pulse Resp B/P (MAP) Pulse Ox O2 Delivery O2 Flow Rate FiO2 07/02/18 08:46 96 Room Air 07/02/18 07:00 94.4 93 18 125/74 (91) 94.4 Physical Exam PHYSICAL EXAM GENERAL: On examination, alert and oriented female, not in any distress. VITAL SIGNS: Stable HEENT EXAMINATION: Both pupils are round and reacting. No conjunctival lesion, no lesion in the mouth. NECK: Supple. No JVP, no lymphadenopathy. LUNGS: Clear. HEART: S1 and S2 regular. ABDOMEN: Benign. EXTREMITIES: No edema or cyanosis. SKIN EXAMINATION: Unremarkable, except the sacral area. She has sacral decubitus, which is to the bone. All the exam was done with RN Altagracia. The patient is paraplegic. The patient does have suprapubic catheter, which is stitched in place and there is some leakage around it. Labs Lab Laboratory Tests Test 07/02/18 05:30 White Blood Count 9.6 x10^3/uL (4.0-11.0) Red Blood Count 3.51 x10^6/uL (3.50-5.40) Hemoglobin 9.5 g/dL (12.0-15.5) Hematocrit 29.2 % (36.0-47.0) Mean Corpuscular Volume 83 fL (79-100) Mean Corpuscular Hemoglobin 27 pg (25-35) Mean Corpuscular Hemoglobin Concent 33 g/dL (31-37) Red Cell Distribution Width 16.8 % (11.5-14.5) Platelet Count 225 x10^3/uL (140-400) Neutrophils (%) (Auto) 78 % (31-73) Lymphocytes (%) (Auto) 15 % (24-48) Monocytes (%) (Auto) 4 % (0-9) Eosinophils (%) (Auto) 2 % (0-3) Basophils (%) (Auto) 1 % (0-3) Neutrophils # (Auto) 7.5 x10^3uL (1.8-7.7) Lymphocytes # (Auto) 1.4 x10^3/uL (1.0-4.8) Monocytes # (Auto) 0.4 x10^3/uL (0.0-1.1) Eosinophils # (Auto) 0.2 x10^3/uL (0.0-0.7) Basophils # (Auto) 0.1 x10^3/uL (0.0-0.2) Sodium Level 146 mmol/L (136-145) Potassium Level 2.8 mmol/L (3.5-5.1) Chloride Level 111 mmol/L (98-107) Carbon Dioxide Level 26 mmol/L (21-32) Anion Gap 9 (6-14) Blood Urea Nitrogen 6 mg/dL (7-20) Creatinine 0.4 mg/dL (0.6-1.0) Estimated GFR (Cockcroft-Gault) 172.6 BUN/Creatinine Ratio 15 (6-20) Glucose Level 83 mg/dL (70-99) Calcium Level 7.8 mg/dL (8.5-10.1) Total Bilirubin 0.1 mg/dL (0.2-1.0) Aspartate Amino Transf (AST/SGOT) 25 U/L (15-37) Alanine Aminotransferase (ALT/SGPT) 25 U/L (14-59) Alkaline Phosphatase 107 U/L (46-116) Total Protein 5.9 g/dL (6.4-8.2) Albumin 1.9 g/dL (3.4-5.0) Albumin/Globulin Ratio 0.5 (1.0-1.7) Micro BC g neg ziyad Objective Assessment G neg sepsis UTI with sepsis H/O Sacral osteomyelitis Paraplegia Fever Plan Plan of Care meropenem check cultures supportive care fluids cxr ARTURO RIVERA MD Jul 02, 2018 09:56
[2018-07-02 11:00] VITALS: BP 112/63
--- NOTE | 2018-07-02 12:42 | PDOC ---
PROGRESS NOTES Chief Complaint Chief Complaint G neg sepsis UTI H/O Sacral osteomyelitis Paraplegia transverse myelitis Fever Plan may need surgical consult for flap meropenem IV check cultures, BLOOD, URINE appreciate id input History of Present Illness History of Present Illness pt states that she feels like her urine was really infected, just broke her fevers last night, feeling better now, no cough or congestion, no other concerns noted Vitals Vitals Vital Signs Date Time Temp Pulse Resp B/P (MAP) Pulse Ox O2 Delivery O2 Flow Rate FiO2 07/02/18 11:08 96 Room Air 07/02/18 11:00 98.7 89 18 112/63 (79) 98.7 Physical Exam Physical Exam GENERAL: On examination, alert and oriented female, not in any distress. VITAL SIGNS: Stable HEENT EXAMINATION: Both pupils are round and reacting. No conjunctival lesion, no lesion in the mouth. NECK: Supple. No JVP, no lymphadenopathy. LUNGS: Clear. HEART: S1 and S2 regular. ABDOMEN: Benign. EXTREMITIES: No edema or cyanosis. SKIN EXAMINATION: Unremarkable, except the sacral area. She has sacral decubitus, which is to the bone. All the exam was done with RN Altagracia. The patient is paraplegic. The patient does have suprapubic catheter, which is stitched in place and there is some leakage around it. General: Oriented X3, Cooperative Extremities: No clubbing, No cyanosis Labs LABS Laboratory Tests Test 07/02/18 05:30 White Blood Count 9.6 x10^3/uL (4.0-11.0) Red Blood Count 3.51 x10^6/uL (3.50-5.40) Hemoglobin 9.5 g/dL (12.0-15.5) Hematocrit 29.2 % (36.0-47.0) Mean Corpuscular Volume 83 fL (79-100) Mean Corpuscular Hemoglobin 27 pg (25-35) Mean Corpuscular Hemoglobin Concent 33 g/dL (31-37) Red Cell Distribution Width 16.8 % (11.5-14.5) Platelet Count 225 x10^3/uL (140-400) Neutrophils (%) (Auto) 78 % (31-73) Lymphocytes (%) (Auto) 15 % (24-48) Monocytes (%) (Auto) 4 % (0-9) Eosinophils (%) (Auto) 2 % (0-3) Basophils (%) (Auto) 1 % (0-3) Neutrophils # (Auto) 7.5 x10^3uL (1.8-7.7) Lymphocytes # (Auto) 1.4 x10^3/uL (1.0-4.8) Monocytes # (Auto) 0.4 x10^3/uL (0.0-1.1) Eosinophils # (Auto) 0.2 x10^3/uL (0.0-0.7) Basophils # (Auto) 0.1 x10^3/uL (0.0-0.2) Sodium Level 146 mmol/L (136-145) Potassium Level 2.8 mmol/L (3.5-5.1) Chloride Level 111 mmol/L (98-107) Carbon Dioxide Level 26 mmol/L (21-32) Anion Gap 9 (6-14) Blood Urea Nitrogen 6 mg/dL (7-20) Creatinine 0.4 mg/dL (0.6-1.0) Estimated GFR (Cockcroft-Gault) 172.6 BUN/Creatinine Ratio 15 (6-20) Glucose Level 83 mg/dL (70-99) Calcium Level 7.8 mg/dL (8.5-10.1) Total Bilirubin 0.1 mg/dL (0.2-1.0) Aspartate Amino Transf (AST/SGOT) 25 U/L (15-37) Alanine Aminotransferase (ALT/SGPT) 25 U/L (14-59) Alkaline Phosphatase 107 U/L (46-116) Total Protein 5.9 g/dL (6.4-8.2) Albumin 1.9 g/dL (3.4-5.0) Albumin/Globulin Ratio 0.5 (1.0-1.7) Assessment and Plan Assessmemt and Plan Problems Medical Problems: (1) Complication, suprapubic catheter obstruction Status: Acute (2) Urinary tract infection associated with catheterization of urinary tract Status: Acute Comment Review of Relevant I have reviewed the following items roque (where applicable) has been applied. Labs Laboratory Tests Test 06/30/18 19:00 06/30/18 19:30 07/01/18 01:20 07/01/18 04:45 Urine Collection Type U cath Urine Color Yellow Urine Clarity Cloudy Urine pH 7.0 Urine Specific [place] 1.020 Urine Protein 30 mg/dL (NEG-TRACE) Urine Glucose (UA) Negative mg/dL (NEG) Urine Ketones (Stick) Negative mg/dL (NEG) Urine Blood Large (NEG) Urine Nitrite Positive (NEG) Urine Bilirubin Negative (NEG) Urine Urobilinogen Dipstick 1.0 mg/dL (0.2 mg/dL) Urine Leukocyte Esterase Large (NEG) Urine RBC 20-40 /HPF (0-2) Urine WBC Tntc /HPF (0-4) Urine Squamous Epithelial Cells Mod /LPF Urine Bacteria Many /HPF (0-FEW) Urine Mucus Slight /LPF White Blood Count 6.7 x10^3/uL (4.0-11.0) Red Blood Count 4.40 x10^6/uL (3.50-5.40) Hemoglobin 12.0 g/dL (12.0-15.5) Hematocrit 36.7 % (36.0-47.0) Mean Corpuscular Volume 83 fL (79-100) Mean Corpuscular Hemoglobin 27 pg (25-35) Mean Corpuscular Hemoglobin Concent 33 g/dL (31-37) Red Cell Distribution Width 16.5 % (11.5-14.5) Platelet Count 386 x10^3/uL (140-400) Neutrophils (%) (Auto) 57 % (31-73) Lymphocytes (%) (Auto) 29 % (24-48) Monocytes (%) (Auto) 5 % (0-9) Eosinophils (%) (Auto) 6 % (0-3) Basophils (%) (Auto) 3 % (0-3) Neutrophils # (Auto) 3.8 x10^3uL (1.8-7.7) Lymphocytes # (Auto) 2.0 x10^3/uL (1.0-4.8) Monocytes # (Auto) 0.3 x10^3/uL (0.0-1.1) Eosinophils # (Auto) 0.4 x10^3/uL (0.0-0.7) Basophils # (Auto) 0.2 x10^3/uL (0.0-0.2) Sodium Level 142 mmol/L (136-145) Potassium Level 3.6 mmol/L (3.5-5.1) Chloride Level 104 mmol/L (98-107) Carbon Dioxide Level 30 mmol/L (21-32) Anion Gap 8 (6-14) Blood Urea Nitrogen 7 mg/dL (7-20) Creatinine 0.5 mg/dL (0.6-1.0) Estimated GFR (Cockcroft-Gault) 133.4 BUN/Creatinine Ratio 14 (6-20) Glucose Level 94 mg/dL (70-99) Calcium Level 9.0 mg/dL (8.5-10.1) Total Bilirubin 0.2 mg/dL (0.2-1.0) Aspartate Amino Transf (AST/SGOT) 16 U/L (15-37) Alanine Aminotransferase (ALT/SGPT) 21 U/L (14-59) Alkaline Phosphatase 136 U/L (46-116) Total Protein 8.0 g/dL (6.4-8.2) Albumin 3.1 g/dL (3.4-5.0) Albumin/Globulin Ratio 0.6 (1.0-1.7) Nasal Screen MRSA (PCR) Negative (Negative) Lactic Acid Level 1.6 mmol/L (0.4-2.0) Test 07/02/18 05:30 White Blood Count 9.6 x10^3/uL (4.0-11.0) Red Blood Count 3.51 x10^6/uL (3.50-5.40) Hemoglobin 9.5 g/dL (12.0-15.5) Hematocrit 29.2 % (36.0-47.0) Mean Corpuscular Volume 83 fL (79-100) Mean Corpuscular Hemoglobin 27 pg (25-35) Mean Corpuscular Hemoglobin Concent 33 g/dL (31-37) Red Cell Distribution Width 16.8 % (11.5-14.5) Platelet Count 225 x10^3/uL (140-400) Neutrophils (%) (Auto) 78 % (31-73) Lymphocytes (%) (Auto) 15 % (24-48) Monocytes (%) (Auto) 4 % (0-9) Eosinophils (%) (Auto) 2 % (0-3) Basophils (%) (Auto) 1 % (0-3) Neutrophils # (Auto) 7.5 x10^3uL (1.8-7.7) Lymphocytes # (Auto) 1.4 x10^3/uL (1.0-4.8) Monocytes # (Auto) 0.4 x10^3/uL (0.0-1.1) Eosinophils # (Auto) 0.2 x10^3/uL (0.0-0.7) Basophils # (Auto) 0.1 x10^3/uL (0.0-0.2) Sodium Level 146 mmol/L (136-145) Potassium Level 2.8 mmol/L (3.5-5.1) Chloride Level 111 mmol/L (98-107) Carbon Dioxide Level 26 mmol/L (21-32) Anion Gap 9 (6-14) Blood Urea Nitrogen 6 mg/dL (7-20) Creatinine 0.4 mg/dL (0.6-1.0) Estimated GFR (Cockcroft-Gault) 172.6 BUN/Creatinine Ratio 15 (6-20) Glucose Level 83 mg/dL (70-99) Calcium Level 7.8 mg/dL (8.5-10.1) Total Bilirubin 0.1 mg/dL (0.2-1.0) Aspartate Amino Transf (AST/SGOT) 25 U/L (15-37) Alanine Aminotransferase (ALT/SGPT) 25 U/L (14-59) Alkaline Phosphatase 107 U/L (46-116) Total Protein 5.9 g/dL (6.4-8.2) Albumin 1.9 g/dL (3.4-5.0) Albumin/Globulin Ratio 0.5 (1.0-1.7) Laboratory Tests Test 07/02/18 05:30 White Blood Count 9.6 x10^3/uL (4.0-11.0) Red Blood Count 3.51 x10^6/uL (3.50-5.40) Hemoglobin 9.5 g/dL (12.0-15.5) Hematocrit 29.2 % (36.0-47.0) Mean Corpuscular Volume 83 fL (79-100) Mean Corpuscular Hemoglobin 27 pg (25-35) Mean Corpuscular Hemoglobin Concent 33 g/dL (31-37) Red Cell Distribution Width 16.8 % (11.5-14.5) Platelet Count 225 x10^3/uL (140-400) Neutrophils (%) (Auto) 78 % (31-73) Lymphocytes (%) (Auto) 15 % (24-48) Monocytes (%) (Auto) 4 % (0-9) Eosinophils (%) (Auto) 2 % (0-3) Basophils (%) (Auto) 1 % (0-3) Neutrophils # (Auto) 7.5 x10^3uL (1.8-7.7) Lymphocytes # (Auto) 1.4 x10^3/uL (1.0-4.8) Monocytes # (Auto) 0.4 x10^3/uL (0.0-1.1) Eosinophils # (Auto) 0.2 x10^3/uL (0.0-0.7) Basophils # (Auto) 0.1 x10^3/uL (0.0-0.2) Sodium Level 146 mmol/L (136-145) Potassium Level 2.8 mmol/L (3.5-5.1) Chloride Level 111 mmol/L (98-107) Carbon Dioxide Level 26 mmol/L (21-32) Anion Gap 9 (6-14) Blood Urea Nitrogen 6 mg/dL (7-20) Creatinine 0.4 mg/dL (0.6-1.0) Estimated GFR (Cockcroft-Gault) 172.6 BUN/Creatinine Ratio 15 (6-20) Glucose Level 83 mg/dL (70-99) Calcium Level 7.8 mg/dL (8.5-10.1) Total Bilirubin 0.1 mg/dL (0.2-1.0) Aspartate Amino Transf (AST/SGOT) 25 U/L (15-37) Alanine Aminotransferase (ALT/SGPT) 25 U/L (14-59) Alkaline Phosphatase 107 U/L (46-116) Total Protein 5.9 g/dL (6.4-8.2) Albumin 1.9 g/dL (3.4-5.0) Albumin/Globulin Ratio 0.5 (1.0-1.7) Microbiology 07/01/18 Blood Culture - Preliminary, Resulted NO GROWTH AFTER 1 DAY 06/30/18 Aerobic Culture, Resulted Pending 06/30/18 Aerobic Culture Result 1 (JESIKA), Resulted Pending 06/30/18 Gram Stain - Final, Resulted 06/30/18 Gram Stain Result 1 (JESIKA) - Final, Resulted 06/30/18 Gram Stain Result 2 (JESIKA) - Final, Resulted 06/30/18 Gram Stain Result 3 (JESIKA) - Final, Resulted Medications Current Medications Sodium Chloride 1,000 ml @ 1,000 mls/hr Q1H IV Last administered on at 18:39; Start 06/30/18 at 18:19; Stop 06/30/18 at 19:18; Status DC Hydromorphone HCl (Dilaudid) 2 mg 1X ONCE IV Last administered on 06/30/18at 18:39; Start 06/30/18 at 18:30; Stop 06/30/18 at 18:31; Status DC Ondansetron HCl (Zofran) 4 mg 1X ONCE IV Last administered on 06/30/18at 18:39 ; Start 06/30/18 at 18:30; Stop 06/30/18 at 18:31; Status DC Alteplase, Recombinant (Cathflo) 2 mg 1X ONCE INT CAT Last administered on at 18:40; Start 06/30/18 at 18:45; Stop 06/30/18 at 18:46; Status DC Ceftriaxone Sodium 50 ml @ 100 mls/hr 1X ONCE IV Last administered on at 20:07; Start 06/30/18 at 20:15; Stop 06/30/18 at 20:44; Status DC Acetaminophen (Tylenol) 1,000 mg 1X ONCE PO Last administered on 06/30/18at 20 :28; Start 06/30/18 at 20:30; Stop 06/30/18 at 20:31; Status DC Hydromorphone HCl (Dilaudid) 0.5 mg PRN Q4HRS PRN IV PAIN Last administered on 06/30/18at 22:49; Start 06/30/18 at 22:15 Ondansetron HCl (Zofran) 4 mg PRN Q6HRS PRN IV NAUSEA/VOMITING; Start at 22:15 Oxycodone HCl (Roxicodone) 30 mg PRN Q4HRS PRN PO PAIN SEVERE Last administered on 07/02/18at 11:08; Start 06/30/18 at 23:45 Oxycodone HCl (OxyCONTIN) 20 mg Q12HR PO Last administered on 07/02/18at 08:46 ; Start 07/01/18 at 09:00 Acetaminophen (Tylenol) 650 mg PRN Q6HRS PRN PO FEVER Last administered on at 12:34; Start 07/01/18 at 04:15; Stop 07/01/18 at 13:59; Status DC Vancomycin HCl 1 gm/Sodium Chloride 250 ml @ 250 mls/hr 1X ONCE IV ; Start at 10:30; Stop 07/01/18 at 11:29; Status UNV Ceftriaxone Sodium 1 gm/ Dextrose 50 ml @ 100 mls/hr Q12H IV ; Start 07/01/18 at 10:30; Status UNV Ceftriaxone Sodium (Rocephin) 1 gm Q12H IVP ; Start 07/01/18 at 10:45; Stop at 10:45; Status DC Vancomycin HCl (Vanco Per Pharmacy) 1 each PRN DAILY PRN MC SEE COMMENTS; Start 07/01/18 at 10:45; Stop 07/01/18 at 10:45; Status DC Vancomycin HCl 2 gm/Sodium Chloride 500 ml @ 250 mls/hr 1X ONCE IV Last administered on 07/01/18at 11:05; Start 07/01/18 at 11:00; Stop 07/01/18 at 12 :59; Status DC Meropenem 500 mg/ Sodium Chloride 50 ml @ 100 mls/hr Q8HRS IV Last administered on 07/02/18at 05:26; Start 07/01/18 at 11:00 Acetaminophen (Tylenol) 1,000 mg PRN Q6HRS PRN PO MILD PAIN / TEMP Last administered on 07/01/18at 21:57; Start 07/01/18 at 13:30 Ascorbic Acid (Vitamin C) 500 mg BID PO Last administered on 07/02/18at 08:45; Start 07/01/18 at 21:00 Baclofen (Lioresal) 10 mg PRN TID PRN PO MUSCLE SPASMS; Start 07/01/18 at 13: 30 Bisacodyl (Dulcolax Supp) 10 mg PRN DAILY PRN RC CONSTIPATION; Start 07/01/18 at 13:30 Cetirizine HCl (ZyrTEC) 10 mg DAILY PO Last administered on 07/02/18at 08:45; Start 07/01/18 at 14:01 Citalopram Hydrobromide (CeleXA) 10 mg QHS PO Last administered on 07/01/18at 21:45; Start 07/01/18 at 21:00 Clotrimazole (Lotrimin) 1 lisa PRN BID PRN TP RASH; Start 07/01/18 at 13:30 Cyanocobalamin (Vitamin B-12) 1,000 mcg QMONTH IM Last administered on at 16:10; Start 07/01/18 at 15:00 Lactulose (Lactulose) 10 gm PRN BID PRN PO CONSTIPATION; Start 07/01/18 at 13: 30 Multivitamins (Thera M Plus) 1 tab QHS PO Last administered on 07/01/18at 21:45 ; Start 07/01/18 at 21:00 Sodium Monofluorophosphate (Fleet Adult) 133 ml 1X PRN PRN RC CONSTIPATION; Start 07/01/18 at 13:30 Nortriptyline HCl (Pamelor) 25 mg QHS PO Last administered on 07/01/18at 21:45 ; Start 07/01/18 at 21:00 Senna/Docusate Sodium (Senna Plus) 2 tab BID PO Last administered on at 08:46; Start 07/01/18 at 21:00 Silver Sulfadiazine (Silvadene) 1 lisa DAILY TP ; Start 07/01/18 at 15:00 Zinc Sulfate (Orazinc) 220 mg QHS PO Last administered on 07/01/18at 21:44; Start 07/01/18 at 21:00 Non-Formulary Medication (Amino Acids/ Protein Hydrolys (Prosource No Carb Liquid Pkt)) 30 ml BID PO ; Start 07/01/18 at 21:00; Status UNV Multivitamins (Thera M Plus) 1 tab DAILY PO ; Start 07/01/18 at 15:00; Status Cancel Buspirone HCl (Buspar) 7.5 mg TID PO Last administered on 07/02/18at 08:45; Start 07/01/18 at 15:00 Hydrocortisone (Cortaid) 1 lisa PRN TID PRN TP ITCHING; Start 07/01/18 at 15:00 Polysaccharide Iron Complex (Niferex 150) 150 mg DAILY PO Last administered on 07/02/18at 08:45; Start 07/01/18 at 15:00 Lactobacillus Rhamnosus (Culturelle) 1 cap BID PO Last administered on at 08:45; Start 07/01/18 at 21:00 Pantoprazole Sodium (Protonix) 40 mg DAILYAC PO Last administered on at 08:45; Start 07/01/18 at 16:30 Artificial Tears (Artificial Tears) 1 drop PRN Q2HRS PRN OU DRY EYE; Start at 15:00; Status Cancel Saliva Substitute (Biotene Moisturizing Mouth) 2 spray PRN Q2HRS PRN PO DRY MOUTH; Start 07/01/18 at 15:00; Status Cancel Enoxaparin Sodium (Lovenox 40mg Syringe) 40 mg BID SQ Last administered on at 08:47; Start 07/01/18 at 15:00 Sodium Chloride 1,000 ml @ 100 mls/hr Q10H IV Last administered on 07/02/18at 00:54; Start 07/01/18 at 13:45 Artificial Tears (Artificial Tears) 1 drop PRN Q2HRS PRN OU DRY EYE; Start at 15:15 Saliva Substitute (Biotene Moisturizing Mouth) 2 spray PRN Q2HRS PRN PO DRY MOUTH; Start 07/01/18 at 15:30 Nystatin (Nystop) 1 lisa BID TP Last administered on 07/01/18at 21:57; Start at 22:00 Potassium Chloride (Klor-Con) 40 meq 1X ONCE PO Last administered on at 08:45; Start 07/02/18 at 07:30; Stop 07/02/18 at 07:31; Status DC Active Scripts Active Reported Silvadene (Silver Sulfadiazine) 20 Gm Cream..g. 1 Lisa TP DAILY Lotrimin Af (Clotrimazole) 12 Gm Cream..g. 1 Lisa TP PRN BID PRN Hydrocortisone (Hydrocortisone Acetate) 28 Gm Oint...g. 28 Gm TP PRN TID PRN Cyanocobalamin Injection (Cyanocobalamin (Vitamin B-12)) 1,000 Mcg/1 Ml Vial 1 Ml IM QMONTH Visine Tears Drops (Peg 400/Hypromellose/Glycerin) 15 Ml Drops 15 Ml OP PRN Q2HR PRN Lactulose 20 Gm/30 Ml Solution 10 Gm PO PRN BID PRN Fleet Enema (Na Phos,M-B/Na Phos,Di-Ba) 133 Ml Enema 133 Ml RC PRN PRN Bisacodyl 10 Mg Supp.rect 10 Mg RC PRN DAILY PRN Biotene (Saliva Substitution Combo No.9) 1,000 Ml Mouthwash 1,000 Ml MM PRN Q2HR PRN Baclofen 10 Mg Tablet 1 Tab PO PRN TID PRN Acetaminophen 500 Mg Tablet 2 Tab PO PRN Q6HRS PRN Zinc Sulfate 220 Mg Capsule 220 Mg PO QHS Thera M Plus Tablet (Multivits,Ca,Minerals/Iron/FA) 1 Each Tablet 1 Each PO QHS Nortriptyline Hcl 25 Mg Capsule 1 Cap PO QHS Citalopram Hbr (Citalopram Hydrobromide) 10 Mg Tablet 1 Tab PO QHS Buspirone Hcl 15 Mg Tablet 7.5 Tab PO TID Vitamin C (Ascorbic Acid) 500 Mg Tablet 500 Mg PO BID Senexon-S Tablet (Sennosides/Docusate Sodium) 1 Each Tablet 2 Each PO BID Prosource No Carb Liquid Pkt (Amino Acids/Protein Hydrolys) 30 Ml Liquid.pkt 30 Ml PO BID [place] Packet (Argin/Glut/Cahmb/Collag/Mv-Min) 1 Each Powd.pack 1 Each PO BID Culturelle (Lactobacillus Rhamnosus Gg) 1 Each Capsule 1 Each PO BID Poly-Iron 150 Forte Capsule (Iron Ps Cmplx/Vit B12/Fa) 1 Each Capsule 1 Each PO DAILY Protonix (Pantoprazole Sodium) 20 Mg Tablet.dr 40 Mg PO DAILY Cetirizine Hcl 10 Mg Tablet 1 Tab PO DAILY Roxicodone (Oxycodone Hcl) 30 Mg Tablet 30 Mg PO Q4HRS PRN Oxycontin (Oxycodone HCl) 20 Mg Tab.er.12h 20 Mg PO BID Vitals/I & O Vital Sign - Last 24 Hours 07/01/18 07/01/18 07/01/18 07/01/18 13:19 15:00 16:09 17:09 Temp 99.3 99.3 Pulse 87 Resp 16 18 18 18 B/P (MAP) 111/49 (69) Pulse Ox 97 95 O2 Delivery Room Air Room Air Room Air 07/01/18 07/01/18 07/01/18 07/01/18 19:00 20:07 21:57 23:02 Temp 98.1 97.9 98.1 97.9 Pulse 100 77 Resp 20 20 B/P (MAP) 118/58 (78) 123/64 (83) Pulse Ox 95 95 93 O2 Delivery Room Air Room Air Room Air Room Air 07/02/18 07/02/18 07/02/18 07/02/18 03:33 05:25 06:25 07:00 Temp 97.5 94.4 97.5 94.4 Pulse 78 93 Resp 20 18 B/P (MAP) 114/66 (82) 125/74 (91) Pulse Ox 96 96 96 98 O2 Delivery Room Air Room Air Room Air Room Air 07/02/18 07/02/18 07/02/18 08:46 11:00 11:08 Temp 98.7 98.7 Pulse 89 Resp 18 B/P (MAP) 112/63 (79) Pulse Ox 96 94 96 O2 Delivery Room Air Room Air Room Air Intake and Output 07/01/18 07/01/18 07/02/18 15:00 23:00 07:00 Intake Total 1270 ml 1080 ml Output Total 1500 ml Balance 1270 ml 1080 ml -1500 ml JAMES GUIDO MD Jul 02, 2018 12:42
[2018-07-02 15:00] VITALS: BP 138/71
--- NOTE | 2018-07-02 15:14 | RAD ---
Portable chest, 07/02/2018: HISTORY: Pneumonia The patient is rotated to the right. A right jugular central venous catheter extends to the level of the atriocaval junction. The heart size and pulmonary vascularity are normal. No pulmonary infiltrate is seen. There is no evidence of pleural fluid. IMPRESSION: No acute cardiopulmonary abnormality is detected. Electronically signed by: Scotty Floers MD (07/02/2018 3:11 PM) [facility]
[2018-07-02 19:00] VITALS: BP 132/84
[2018-07-02] MEDS: CITALOPRAM 10 MG TABLET. PO SCH (19:46)
[2018-07-02] MEDS: NORTRIPTYLINE 25 MG CAPSULE PO SCH (19:46)
[2018-07-02] MEDS: MULTIVITAMIN with MINERAL TABLET. PO SCH (19:46)
[2018-07-02] MEDS: ZINC SULFATE 220 MG CAPSULE. PO SCH (19:47)
[2018-07-02 23:00] VITALS: BP 127/73
[2018-07-03 03:00] VITALS: BP 130/79
[2018-07-03] MEDS: IV NORMAL SALINE 1000ML BAG 1,000 ML IV SCH (03:45)
[2018-07-03] MEDS: MEROPENEM 500 MG in IV NORMAL SALINE 50ML 50 ML IV SCH ×3 (03:46→22:32)
[2018-07-03 07:00] VITALS: BP 114/74
[2018-07-03] MEDS: ASCORBIC ACID 500 MG TABLET PO SCH ×2 (08:04→21:04)
[2018-07-03] MEDS: busPIRone 5 MG TABLET. PO SCH ×3 (08:04→21:05)
[2018-07-03] MEDS: CETIRIZINE HCL 10 MG TABLET. PO SCH (08:05)
[2018-07-03] MEDS: SENNOSIDES/DOCUSATE 8.6/50MG TABLET. PO SCH ×2 (08:05→21:05)
[2018-07-03] MEDS: LACTOBACILLUS RHAMNOSUS GG 1 CAPSULE. PO SCH ×2 (08:05→21:04)
[2018-07-03] MEDS: oxyCODONE ER 10 MG TAB.ER.12H PO SCH ×2 (08:05→19:45)
[2018-07-03] MEDS: IRON POLYSACCHARIDE COMPLEX 150 MG CAPSULE PO SCH (08:05)
[2018-07-03] MEDS: PANTOPRAZOLE 40 MG TABLET.DR. PO SCH (08:05)
[2018-07-03] MEDS: ENOXAPARIN 40 MG/0.4 ML SYRINGE. SQ SCH ×2 (08:06→21:06)
[2018-07-03] MEDS: NYSTATIN TOPICAL POWDER 15GM BOTTLE. TP SCH ×2 (08:07→21:06)
[2018-07-03] MEDS ORDERED: POTASSIUM CHLORIDE 20 MEQ TABLET.ER. PO ONE (08:30)
[2018-07-03] MEDS: silver sulfADIAZINE 1% CREAM 25GM TUBE. TP SCH (08:39)
--- NOTE | 2018-07-03 09:56 | PDOC ---
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 Potassium mildly low 3.1-second day now History of Present Illness History of Present Illness He has no complaints, some mild redness or discharge around the superpubic This has been changed-they change it every monthly Plan cont iV meropenem may need surgical consult for flap Turn q2 Supportive meds KCl 401 then by mouth daily since potassium is always low MAy have some bactrobam ointment around supra[pubic cath COnt nsytatin powder to creases Vitals Vitals Vital Signs Date Time Temp Pulse Resp B/P (MAP) Pulse Ox O2 Delivery O2 Flow Rate FiO2 07/03/18 09:11 Room Air 07/03/18 07:00 98.2 94 18 114/74 (87) 98 98.2 Physical Exam Physical Exam GENERAL: On examination, alert and oriented female, not in any distress. VITAL SIGNS: Stable HEENT EXAMINATION: Both pupils are round and reacting. No conjunctival lesion, no lesion in the mouth. NECK: Supple. No JVP, no lymphadenopathy. LUNGS: Clear. HEART: S1 and S2 regular. ABDOMEN: Benign. EXTREMITIES: No edema or cyanosis. SKIN EXAMINATION: Unremarkable, except the sacral area. She has sacral decubitus, which is to the bone. All the exam was done with IGOR Frias. The patient is paraplegic. The patient does have suprapubic catheter, which is stitched in place and there is some leakage around it. General: Oriented X3, Cooperative Heart: Regular rate, Normal S1, Normal S2 Lungs: Clear Abdomen: Normal bowel sounds, Other (indwelling suprapubic catheter with some redness or discharge around the area) Extremities: No clubbing, No cyanosis Labs LABS Laboratory Tests Test 07/02/18 17:15 Potassium Level 3.1 mmol/L (3.5-5.1) Review of Systems Review of Systems A 14 point ROS was completed with the following noted as positive: Other systems reviewed and negative. \CONSTITUTIONAL: No fever or chills EYES: No recent changes SKIN: No rash or itching CARDIOVASCULAR: No chest pain, syncope, palpitations, or edema RESPIRATORY: No SOB or cough GASTROINTESTINAL: No nausea, vomiting or abdominal pain NEUROLOGICAL: No headaches or weakness ENDOCRINE: No cold or heat intolerance GENITOURINARY: No urgency or frequency of urination MUSCULOSKELETAL: No back pain or joint pain LYMPHATICS: No enlarged lymph nodes PSYCHIATRIC: No anxiety or depression Assessment and Plan Assessmemt and Plan Problems Medical Problems: (1) Complication, suprapubic catheter obstruction Status: Acute (2) Urinary tract infection associated with catheterization of urinary tract Status: Acute Comment Review of Relevant I have reviewed the following items roque (where applicable) has been applied. Labs Laboratory Tests Test 07/02/18 05:30 07/02/18 17:15 White Blood Count 9.6 x10^3/uL (4.0-11.0) Red Blood Count 3.51 x10^6/uL (3.50-5.40) Hemoglobin 9.5 g/dL (12.0-15.5) Hematocrit 29.2 % (36.0-47.0) Mean Corpuscular Volume 83 fL (79-100) Mean Corpuscular Hemoglobin 27 pg (25-35) Mean Corpuscular Hemoglobin Concent 33 g/dL (31-37) Red Cell Distribution Width 16.8 % (11.5-14.5) Platelet Count 225 x10^3/uL (140-400) Neutrophils (%) (Auto) 78 % (31-73) Lymphocytes (%) (Auto) 15 % (24-48) Monocytes (%) (Auto) 4 % (0-9) Eosinophils (%) (Auto) 2 % (0-3) Basophils (%) (Auto) 1 % (0-3) Neutrophils # (Auto) 7.5 x10^3uL (1.8-7.7) Lymphocytes # (Auto) 1.4 x10^3/uL (1.0-4.8) Monocytes # (Auto) 0.4 x10^3/uL (0.0-1.1) Eosinophils # (Auto) 0.2 x10^3/uL (0.0-0.7) Basophils # (Auto) 0.1 x10^3/uL (0.0-0.2) Sodium Level 146 mmol/L (136-145) Potassium Level 2.8 mmol/L (3.5-5.1) 3.1 mmol/L (3.5-5.1) Chloride Level 111 mmol/L (98-107) Carbon Dioxide Level 26 mmol/L (21-32) Anion Gap 9 (6-14) Blood Urea Nitrogen 6 mg/dL (7-20) Creatinine 0.4 mg/dL (0.6-1.0) Estimated GFR (Cockcroft-Gault) 172.6 BUN/Creatinine Ratio 15 (6-20) Glucose Level 83 mg/dL (70-99) Calcium Level 7.8 mg/dL (8.5-10.1) Total Bilirubin 0.1 mg/dL (0.2-1.0) Aspartate Amino Transf (AST/SGOT) 25 U/L (15-37) Alanine Aminotransferase (ALT/SGPT) 25 U/L (14-59) Alkaline Phosphatase 107 U/L (46-116) Total Protein 5.9 g/dL (6.4-8.2) Albumin 1.9 g/dL (3.4-5.0) Albumin/Globulin Ratio 0.5 (1.0-1.7) Laboratory Tests Test 07/02/18 17:15 Potassium Level 3.1 mmol/L (3.5-5.1) Microbiology 07/01/18 Blood Culture - Preliminary, Resulted NO GROWTH AFTER 2 DAYS 06/30/18 Urine Culture - Preliminary, Resulted 06/30/18 Urine Culture Result 1 (JESIKA) - Preliminary, Resulted 06/30/18 Aerobic Culture, Resulted Pending 06/30/18 Aerobic Culture Result 1 (JESIKA), Resulted Pending 06/30/18 Gram Stain - Final, Resulted 06/30/18 Gram Stain Result 1 (JESIKA) - Final, Resulted 06/30/18 Gram Stain Result 2 (JESIKA) - Final, Resulted 06/30/18 Gram Stain Result 3 (JESIKA) - Final, Resulted Medications Current Medications Sodium Chloride 1,000 ml @ 1,000 mls/hr Q1H IV Last administered on at 18:39; Start 06/30/18 at 18:19; Stop 06/30/18 at 19:18; Status DC Hydromorphone HCl (Dilaudid) 2 mg 1X ONCE IV Last administered on 06/30/18at 18:39; Start 06/30/18 at 18:30; Stop 06/30/18 at 18:31; Status DC Ondansetron HCl (Zofran) 4 mg 1X ONCE IV Last administered on 06/30/18at 18:39 ; Start 06/30/18 at 18:30; Stop 06/30/18 at 18:31; Status DC Alteplase, Recombinant (Cathflo) 2 mg 1X ONCE INT CAT Last administered on at 18:40; Start 06/30/18 at 18:45; Stop 06/30/18 at 18:46; Status DC Ceftriaxone Sodium 50 ml @ 100 mls/hr 1X ONCE IV Last administered on at 20:07; Start 06/30/18 at 20:15; Stop 06/30/18 at 20:44; Status DC Acetaminophen (Tylenol) 1,000 mg 1X ONCE PO Last administered on 06/30/18at 20 :28; Start 06/30/18 at 20:30; Stop 06/30/18 at 20:31; Status DC Hydromorphone HCl (Dilaudid) 0.5 mg PRN Q4HRS PRN IV PAIN Last administered on 06/30/18at 22:49; Start 06/30/18 at 22:15 Ondansetron HCl (Zofran) 4 mg PRN Q6HRS PRN IV NAUSEA/VOMITING; Start at 22:15 Oxycodone HCl (Roxicodone) 30 mg PRN Q4HRS PRN PO PAIN SEVERE Last administered on 07/03/18at 08:11; Start 06/30/18 at 23:45 Oxycodone HCl (OxyCONTIN) 20 mg Q12HR PO Last administered on 07/03/18at 08:05 ; Start 07/01/18 at 09:00 Acetaminophen (Tylenol) 650 mg PRN Q6HRS PRN PO FEVER Last administered on at 12:34; Start 07/01/18 at 04:15; Stop 07/01/18 at 13:59; Status DC Vancomycin HCl 1 gm/Sodium Chloride 250 ml @ 250 mls/hr 1X ONCE IV ; Start at 10:30; Stop 07/01/18 at 11:29; Status UNV Ceftriaxone Sodium 1 gm/ Dextrose 50 ml @ 100 mls/hr Q12H IV ; Start 07/01/18 at 10:30; Status UNV Ceftriaxone Sodium (Rocephin) 1 gm Q12H IVP ; Start 07/01/18 at 10:45; Stop at 10:45; Status DC Vancomycin HCl (Vanco Per Pharmacy) 1 each PRN DAILY PRN MC SEE COMMENTS; Start 07/01/18 at 10:45; Stop 07/01/18 at 10:45; Status DC Vancomycin HCl 2 gm/Sodium Chloride 500 ml @ 250 mls/hr 1X ONCE IV Last administered on 07/01/18at 11:05; Start 07/01/18 at 11:00; Stop 07/01/18 at 12 :59; Status DC Meropenem 500 mg/ Sodium Chloride 50 ml @ 100 mls/hr Q8HRS IV Last administered on 07/03/18at 03:46; Start 07/01/18 at 11:00 Acetaminophen (Tylenol) 1,000 mg PRN Q6HRS PRN PO MILD PAIN / TEMP Last administered on 07/01/18at 21:57; Start 07/01/18 at 13:30 Ascorbic Acid (Vitamin C) 500 mg BID PO Last administered on 07/03/18at 08:04; Start 07/01/18 at 21:00 Baclofen (Lioresal) 10 mg PRN TID PRN PO MUSCLE SPASMS; Start 07/01/18 at 13: 30 Bisacodyl (Dulcolax Supp) 10 mg PRN DAILY PRN RC CONSTIPATION; Start 07/01/18 at 13:30 Cetirizine HCl (ZyrTEC) 10 mg DAILY PO Last administered on 07/03/18at 08:05; Start 07/01/18 at 14:01 Citalopram Hydrobromide (CeleXA) 10 mg QHS PO Last administered on 07/02/18at 19:46; Start 07/01/18 at 21:00 Clotrimazole (Lotrimin) 1 lisa PRN BID PRN TP RASH; Start 07/01/18 at 13:30 Cyanocobalamin (Vitamin B-12) 1,000 mcg QMONTH IM Last administered on at 16:10; Start 07/01/18 at 15:00 Lactulose (Lactulose) 10 gm PRN BID PRN PO CONSTIPATION; Start 07/01/18 at 13: 30 Multivitamins (Thera M Plus) 1 tab QHS PO Last administered on 07/02/18at 19:46 ; Start 07/01/18 at 21:00 Sodium Monofluorophosphate (Fleet Adult) 133 ml 1X PRN PRN RC CONSTIPATION; Start 07/01/18 at 13:30 Nortriptyline HCl (Pamelor) 25 mg QHS PO Last administered on 07/02/18at 19:46 ; Start 07/01/18 at 21:00 Senna/Docusate Sodium (Senna Plus) 2 tab BID PO Last administered on at 08:05; Start 07/01/18 at 21:00 Silver Sulfadiazine (Silvadene) 1 lisa DAILY TP ; Start 07/01/18 at 15:00 Zinc Sulfate (Orazinc) 220 mg QHS PO Last administered on 07/02/18at 19:47; Start 07/01/18 at 21:00 Non-Formulary Medication (Amino Acids/ Protein Hydrolys (Prosource No Carb Liquid Pkt)) 30 ml BID PO ; Start 07/01/18 at 21:00; Status UNV Multivitamins (Thera M Plus) 1 tab DAILY PO ; Start 07/01/18 at 15:00; Status Cancel Buspirone HCl (Buspar) 7.5 mg TID PO Last administered on 07/03/18at 08:04; Start 07/01/18 at 15:00 Hydrocortisone (Cortaid) 1 lisa PRN TID PRN TP ITCHING; Start 07/01/18 at 15:00 Polysaccharide Iron Complex (Niferex 150) 150 mg DAILY PO Last administered on 07/03/18at 08:05; Start 07/01/18 at 15:00 Lactobacillus Rhamnosus (Culturelle) 1 cap BID PO Last administered on at 08:05; Start 07/01/18 at 21:00 Pantoprazole Sodium (Protonix) 40 mg DAILYAC PO Last administered on at 08:05; Start 07/01/18 at 16:30 Artificial Tears (Artificial Tears) 1 drop PRN Q2HRS PRN OU DRY EYE; Start at 15:00; Status Cancel Saliva Substitute (Biotene Moisturizing Mouth) 2 spray PRN Q2HRS PRN PO DRY MOUTH; Start 07/01/18 at 15:00; Status Cancel Enoxaparin Sodium (Lovenox 40mg Syringe) 40 mg BID SQ Last administered on at 08:06; Start 07/01/18 at 15:00 Sodium Chloride 1,000 ml @ 100 mls/hr Q10H IV Last administered on 07/03/18at 03:45; Start 07/01/18 at 13:45; Stop 07/03/18 at 08:18; Status DC Artificial Tears (Artificial Tears) 1 drop PRN Q2HRS PRN OU DRY EYE; Start at 15:15 Saliva Substitute (Biotene Moisturizing Mouth) 2 spray PRN Q2HRS PRN PO DRY MOUTH; Start 07/01/18 at 15:30 Nystatin (Nystop) 1 lisa BID TP Last administered on 07/03/18at 08:07; Start at 22:00 Potassium Chloride (Klor-Con) 40 meq 1X ONCE PO Last administered on at 08:45; Start 07/02/18 at 07:30; Stop 07/02/18 at 07:31; Status DC Potassium Chloride (Klor-Con) 40 meq 1X ONCE PO Last administered on at 09:24; Start 07/03/18 at 08:30; Stop 07/03/18 at 08:31; Status DC Potassium Chloride (Klor-Con) 40 meq DAILYWBKFT PO ; Start 07/04/18 at 08:00 Active Scripts Active Reported Silvadene (Silver Sulfadiazine) 20 Gm Cream..g. 1 Lisa TP DAILY Lotrimin Af (Clotrimazole) 12 Gm Cream..g. 1 Lisa TP PRN BID PRN Hydrocortisone (Hydrocortisone Acetate) 28 Gm Oint...g. 28 Gm TP PRN TID PRN Cyanocobalamin Injection (Cyanocobalamin (Vitamin B-12)) 1,000 Mcg/1 Ml Vial 1 Ml IM QMONTH Visine Tears Drops (Peg 400/Hypromellose/Glycerin) 15 Ml Drops 15 Ml OP PRN Q2HR PRN Lactulose 20 Gm/30 Ml Solution 10 Gm PO PRN BID PRN Fleet Enema (Na Phos,M-B/Na Phos,Di-Ba) 133 Ml Enema 133 Ml RC PRN PRN Bisacodyl 10 Mg Supp.rect 10 Mg RC PRN DAILY PRN Biotene (Saliva Substitution Combo No.9) 1,000 Ml Mouthwash 1,000 Ml MM PRN Q2HR PRN Baclofen 10 Mg Tablet 1 Tab PO PRN TID PRN Acetaminophen 500 Mg Tablet 2 Tab PO PRN Q6HRS PRN Zinc Sulfate 220 Mg Capsule 220 Mg PO QHS Thera M Plus Tablet (Multivits,Ca,Minerals/Iron/FA) 1 Each Tablet 1 Each PO QHS Nortriptyline Hcl 25 Mg Capsule 1 Cap PO QHS Citalopram Hbr (Citalopram Hydrobromide) 10 Mg Tablet 1 Tab PO QHS Buspirone Hcl 15 Mg Tablet 7.5 Tab PO TID Vitamin C (Ascorbic Acid) 500 Mg Tablet 500 Mg PO BID Senexon-S Tablet (Sennosides/Docusate Sodium) 1 Each Tablet 2 Each PO BID Prosource No Carb Liquid Pkt (Amino Acids/Protein Hydrolys) 30 Ml Liquid.pkt 30 Ml PO BID Zion Packet (Argin/Glut/Cahmb/Collag/Mv-Min) 1 Each Powd.pack 1 Each PO BID Culturelle (Lactobacillus Rhamnosus Gg) 1 Each Capsule 1 Each PO BID Poly-Iron 150 Forte Capsule (Iron Ps Cmplx/Vit B12/Fa) 1 Each Capsule 1 Each PO DAILY Protonix (Pantoprazole Sodium) 20 Mg Tablet.dr 40 Mg PO DAILY Cetirizine Hcl 10 Mg Tablet 1 Tab PO DAILY Roxicodone (Oxycodone Hcl) 30 Mg Tablet 30 Mg PO Q4HRS PRN Oxycontin (Oxycodone HCl) 20 Mg Tab.er.12h 20 Mg PO BID Vitals/I & O Vital Sign - Last 24 Hours 07/02/18 07/02/18 07/02/18 07/02/18 11:00 11:08 12:46 15:00 Temp 98.7 98.3 98.7 98.3 Pulse 89 91 Resp 18 18 B/P (MAP) 112/63 (79) 138/71 (93) Pulse Ox 94 96 96 90 O2 Delivery Room Air Room Air Room Air 07/02/18 07/02/18 07/02/18 07/02/18 15:33 16:33 19:00 19:46 Temp 98.2 98.2 Pulse 97 Resp 18 B/P (MAP) 132/84 (100) Pulse Ox 96 96 98 O2 Delivery Room Air Room Air Room Air 07/02/18 07/02/18 07/02/18 07/02/18 19:47 20:00 23:00 23:33 Temp 98.3 98.3 Pulse 91 Resp 18 B/P (MAP) 127/73 (91) Pulse Ox 96 O2 Delivery Room Air Room Air Room Air Room Air 07/02/18 07/03/18 07/03/18 07/03/18 23:54 03:00 03:44 07:00 Temp 98.1 98.2 98.1 98.2 Pulse 90 94 Resp 17 18 B/P (MAP) 130/79 (96) 114/74 (87) Pulse Ox 99 98 O2 Delivery Room Air Room Air Room Air Room Air 07/03/18 07/03/18 07/03/18 08:05 08:11 09:11 O2 Delivery Room Air Room Air Room Air Intake and Output 07/02/18 07/02/18 07/03/18 15:00 23:00 07:00 Intake Total 220 ml 1300 ml 0 ml Output Total 1000 ml Balance 220 ml 300 ml 0 ml GARETT BERTRAND MD Jul 03, 2018 09:56
[2018-07-03 11:00] VITALS: BP 131/79
[2018-07-03] MEDS: MUPIROCIN 2 % TOPICAL CREAM 15GM TUBE. TP SCH ×2 (12:31→21:06)
--- NOTE | 2018-07-03 12:52 | PDOC ---
Infectious Disease Note Subjective Subjective Feeling better since admission No further fevers or chills No further leakage around SPC since cath changed Chronic constipation ROS ROS per HPI otherwise neg Vital Sign Vital Signs Vital Signs Date Time Temp Pulse Resp B/P (MAP) Pulse Ox O2 Delivery O2 Flow Rate FiO2 07/03/18 12:34 Room Air 07/03/18 11:00 98.2 82 18 131/79 (96) 98 98.2 Physical Exam PHYSICAL EXAM GENERAL: Propped up in bed, alert, NAD HEENT: Oral cavity clear NECK: Supple. LUNGS: Clear. HEART: S1 and S2 regular. ABDOMEN: Obese, soft, SPC intact/clean EXTREMITIES: BLE 2+ edema. No cyanosis SKIN: Sacral decubitus, which is to the bone. GREY TENDER: Alert and oriented x 3. Paraplegic. Right-sided tunneled PICC (over 4 months old per pt) clean Labs Lab Laboratory Tests Test 07/02/18 17:15 Potassium Level 3.1 mmol/L (3.5-5.1) IMPRESSION: No acute cardiopulmonary abnormality is detected. Micro BLOOD CULTURE Final GRAM NEGATIVE RODS, IN 1 OF 4 BOTTLES, TWO SETS DRAWN.\ URINE CULTURE RES 1 Preliminary Proteus mirabilis Greater than 100,000 colony forming units per mL Abdominal drainage (around SPC) AEROBIC CULTURE PENDING AEROBIC RES 1 PENDING GRAM STAIN Final Final report GRAM STAIN RESULT 1 Final Comment No white blood cells seen. GRAM STAIN RESULT 2 Final Comment Many gram negative rods. GRAM STAIN RESULT 3 Final Comment Many gram positive cocci. Objective Assessment G neg sepsis (POA) CAUTI with sepsis (POA) Proteus -SPC upsized 07/01 by urology h/o sacral osteomyelitis Paraplegia Fever - better Plan Plan of Care Continue meropenem f/u cultures results Monitor labs/temp Local wound care and offloading supportive care Patient seen and examined. Chart reviewed in detail. Case discussed with STAFF [employer] OFFICER> Agree with above plan. CATIA GARCIA APRN Jul 03, 2018 12:52 TOBI RICE MD Jul 03, 2018 22:58
[2018-07-03 15:00] VITALS: BP 139/77
[2018-07-03] MEDS: POLYVINYL ALCOHOL 1.4% OPHTH SOLUTION 15ML BOTTLE. OU PRN (16:44)
[2018-07-03 19:20] VITALS: BP 127/79
[2018-07-03] MEDS: ZINC SULFATE 220 MG CAPSULE. PO SCH (21:04)
[2018-07-03] MEDS: MULTIVITAMIN with MINERAL TABLET. PO SCH (21:04)
[2018-07-03] MEDS: CITALOPRAM 10 MG TABLET. PO SCH (21:05)
[2018-07-03] MEDS: NORTRIPTYLINE 25 MG CAPSULE PO SCH (21:05)
[2018-07-03 23:15] VITALS: BP 139/74
[2018-07-04 03:20] VITALS: BP 122/75
[2018-07-04] MEDS: MEROPENEM 500 MG in IV NORMAL SALINE 50ML 50 ML IV SCH ×3 (05:36→22:00)
[2018-07-04 05:54] LABS: BASO % 1 % (0-3); EOS # 0.4 x10^3/uL (0.0-0.7); EOS % 6 % (0-3); HEMATOCRIT 31.5 % (36.0-47.0); HEMOGLOBIN 10.3 g/dL (12.0-15.5); LYMPH # 2.8 x10^3/uL (1.0-4.8); LYMPH % 40 % (24-48); MEAN CORPUSCULAR HEMOGLOBIN 27 pg (25-35); MEAN CORPUSCULAR HGB CONC 33 g/dL (31-37); MEAN CORPUSCULAR VOLUME 83 fL (79-100); MONO # 0.3 x10^3/uL (0.0-1.1); MONO % 4 % (0-9); NEUT # 3.5 x10^3uL (1.8-7.7); NEUT % 50 % (31-73); PLATELET COUNT 295 x10^3/uL (140-400); RED BLOOD COUNT 3.81 x10^6/uL (3.50-5.40); RED CELL DISTRIBUTION WIDTH 16.6 % (11.5-14.5)
[2018-07-04 06:01] LABS: CALCIUM 8.5 mg/dL (8.5-10.1); CREATININE 0.5 mg/dL (0.6-1.0); GFR 133.4; POTASSIUM 3.7 mmol/L (3.5-5.1)
[2018-07-04] MEDS: PANTOPRAZOLE 40 MG TABLET.DR. PO SCH (07:25)
[2018-07-04 07:30] VITALS: BP 139/72
[2018-07-04] MEDS: POTASSIUM CHLORIDE 20 MEQ TABLET.ER. PO SCH (08:03)
[2018-07-04] MEDS: ASCORBIC ACID 500 MG TABLET PO SCH ×2 (08:03→20:25)
[2018-07-04] MEDS: busPIRone 5 MG TABLET. PO SCH ×3 (08:03→20:24)
[2018-07-04] MEDS: CETIRIZINE HCL 10 MG TABLET. PO SCH (08:03)
[2018-07-04] MEDS: LACTOBACILLUS RHAMNOSUS GG 1 CAPSULE. PO SCH ×2 (08:03→20:25)
[2018-07-04] MEDS: SENNOSIDES/DOCUSATE 8.6/50MG TABLET. PO SCH ×2 (08:03→20:24)
[2018-07-04] MEDS: oxyCODONE ER 10 MG TAB.ER.12H PO SCH ×2 (08:03→20:25)
[2018-07-04] MEDS: ENOXAPARIN 40 MG/0.4 ML SYRINGE. SQ SCH ×2 (08:04→20:26)
[2018-07-04] MEDS: MUPIROCIN 2 % TOPICAL CREAM 15GM TUBE. TP SCH ×2 (08:05→21:00)
[2018-07-04] MEDS: silver sulfADIAZINE 1% CREAM 25GM TUBE. TP SCH (09:00)
[2018-07-04] MEDS: IRON POLYSACCHARIDE COMPLEX 150 MG CAPSULE PO SCH (09:43)
[2018-07-04] MEDS: NYSTATIN TOPICAL POWDER 15GM BOTTLE. TP SCH ×2 (09:44→21:00)
--- NOTE | 2018-07-04 09:49 | PDOC ---
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 Potassium mildly low 3.1-second day now History of Present Illness History of Present Illness SHe has no complaints, some mild redness or discharge around the supra pubic cath - I started bactroban thursday Garcia has been changed this admission-they change it every monthly She is bed bound from transverse myelitis x 3 yrs and has stage 5 sacral She has very good attitude and outlook in life despite her medical condition Plan cont iV meropenem Indication and sensitivities are still pending hence cannot discharge yet Turn q2 Supportive meds cont bactrobam ointment around suprapubic cath COnt nsytatin powder to creases Vitals Vitals Vital Signs Date Time Temp Pulse Resp B/P (MAP) Pulse Ox O2 Delivery O2 Flow Rate FiO2 07/04/18 09:43 Room Air 07/04/18 07:30 98.2 91 18 139/72 (94) 95 98.2 Physical Exam Physical Exam GENERAL: Propped up in bed, alert, NAD HEENT: Oral cavity clear NECK: Supple. LUNGS: Clear. HEART: S1 and S2 regular. ABDOMEN: Obese, soft, SPC intact/clean EXTREMITIES: BLE 2+ edema. No cyanosis SKIN: Sacral decubitus, which is to the bone. TIP PRINTER: Alert and oriented x 3. Paraplegic. Right-sided tunneled PICC (over 4 months old per pt) clean General: Oriented X3, Cooperative Heart: Regular rate, Normal S1, Normal S2 Lungs: Clear Abdomen: Normal bowel sounds, Other (indwelling suprapubic catheter with some redness or discharge around the area) Extremities: No clubbing, No cyanosis Labs LABS Laboratory Tests Test 07/04/18 05:45 White Blood Count 7.0 x10^3/uL (4.0-11.0) Red Blood Count 3.81 x10^6/uL (3.50-5.40) Hemoglobin 10.3 g/dL (12.0-15.5) Hematocrit 31.5 % (36.0-47.0) Mean Corpuscular Volume 83 fL (79-100) Mean Corpuscular Hemoglobin 27 pg (25-35) Mean Corpuscular Hemoglobin Concent 33 g/dL (31-37) Red Cell Distribution Width 16.6 % (11.5-14.5) Platelet Count 295 x10^3/uL (140-400) Neutrophils (%) (Auto) 50 % (31-73) Lymphocytes (%) (Auto) 40 % (24-48) Monocytes (%) (Auto) 4 % (0-9) Eosinophils (%) (Auto) 6 % (0-3) Basophils (%) (Auto) 1 % (0-3) Neutrophils # (Auto) 3.5 x10^3uL (1.8-7.7) Lymphocytes # (Auto) 2.8 x10^3/uL (1.0-4.8) Monocytes # (Auto) 0.3 x10^3/uL (0.0-1.1) Eosinophils # (Auto) 0.4 x10^3/uL (0.0-0.7) Basophils # (Auto) 0.0 x10^3/uL (0.0-0.2) Sodium Level 140 mmol/L (136-145) Potassium Level 3.7 mmol/L (3.5-5.1) Chloride Level 104 mmol/L (98-107) Carbon Dioxide Level 28 mmol/L (21-32) Anion Gap 8 (6-14) Blood Urea Nitrogen 9 mg/dL (7-20) Creatinine 0.5 mg/dL (0.6-1.0) Estimated GFR (Cockcroft-Gault) 133.4 Glucose Level 123 mg/dL (70-99) Calcium Level 8.5 mg/dL (8.5-10.1) Review of Systems Review of Systems A 14 point ROS was completed with the following noted as positive: Other systems reviewed and negative. \CONSTITUTIONAL: No fever or chills EYES: No recent changes SKIN: No rash or itching CARDIOVASCULAR: No chest pain, syncope, palpitations, or edema RESPIRATORY: No SOB or cough GASTROINTESTINAL: No nausea, vomiting or abdominal pain NEUROLOGICAL: No headaches or weakness ENDOCRINE: No cold or heat intolerance GENITOURINARY: No urgency or frequency of urination MUSCULOSKELETAL: No back pain or joint pain LYMPHATICS: No enlarged lymph nodes PSYCHIATRIC: No anxiety or depression Assessment and Plan Assessmemt and Plan Problems Medical Problems: (1) Complication, suprapubic catheter obstruction Status: Acute (2) Urinary tract infection associated with catheterization of urinary tract Status: Acute Comment Review of Relevant I have reviewed the following items roque (where applicable) has been applied. Labs Laboratory Tests Test 07/02/18 17:15 07/04/18 05:45 Potassium Level 3.1 mmol/L (3.5-5.1) 3.7 mmol/L (3.5-5.1) White Blood Count 7.0 x10^3/uL (4.0-11.0) Red Blood Count 3.81 x10^6/uL (3.50-5.40) Hemoglobin 10.3 g/dL (12.0-15.5) Hematocrit 31.5 % (36.0-47.0) Mean Corpuscular Volume 83 fL (79-100) Mean Corpuscular Hemoglobin 27 pg (25-35) Mean Corpuscular Hemoglobin Concent 33 g/dL (31-37) Red Cell Distribution Width 16.6 % (11.5-14.5) Platelet Count 295 x10^3/uL (140-400) Neutrophils (%) (Auto) 50 % (31-73) Lymphocytes (%) (Auto) 40 % (24-48) Monocytes (%) (Auto) 4 % (0-9) Eosinophils (%) (Auto) 6 % (0-3) Basophils (%) (Auto) 1 % (0-3) Neutrophils # (Auto) 3.5 x10^3uL (1.8-7.7) Lymphocytes # (Auto) 2.8 x10^3/uL (1.0-4.8) Monocytes # (Auto) 0.3 x10^3/uL (0.0-1.1) Eosinophils # (Auto) 0.4 x10^3/uL (0.0-0.7) Basophils # (Auto) 0.0 x10^3/uL (0.0-0.2) Sodium Level 140 mmol/L (136-145) Chloride Level 104 mmol/L (98-107) Carbon Dioxide Level 28 mmol/L (21-32) Anion Gap 8 (6-14) Blood Urea Nitrogen 9 mg/dL (7-20) Creatinine 0.5 mg/dL (0.6-1.0) Estimated GFR (Cockcroft-Gault) 133.4 Glucose Level 123 mg/dL (70-99) Calcium Level 8.5 mg/dL (8.5-10.1) Laboratory Tests Test 07/04/18 05:45 White Blood Count 7.0 x10^3/uL (4.0-11.0) Red Blood Count 3.81 x10^6/uL (3.50-5.40) Hemoglobin 10.3 g/dL (12.0-15.5) Hematocrit 31.5 % (36.0-47.0) Mean Corpuscular Volume 83 fL (79-100) Mean Corpuscular Hemoglobin 27 pg (25-35) Mean Corpuscular Hemoglobin Concent 33 g/dL (31-37) Red Cell Distribution Width 16.6 % (11.5-14.5) Platelet Count 295 x10^3/uL (140-400) Neutrophils (%) (Auto) 50 % (31-73) Lymphocytes (%) (Auto) 40 % (24-48) Monocytes (%) (Auto) 4 % (0-9) Eosinophils (%) (Auto) 6 % (0-3) Basophils (%) (Auto) 1 % (0-3) Neutrophils # (Auto) 3.5 x10^3uL (1.8-7.7) Lymphocytes # (Auto) 2.8 x10^3/uL (1.0-4.8) Monocytes # (Auto) 0.3 x10^3/uL (0.0-1.1) Eosinophils # (Auto) 0.4 x10^3/uL (0.0-0.7) Basophils # (Auto) 0.0 x10^3/uL (0.0-0.2) Sodium Level 140 mmol/L (136-145) Potassium Level 3.7 mmol/L (3.5-5.1) Chloride Level 104 mmol/L (98-107) Carbon Dioxide Level 28 mmol/L (21-32) Anion Gap 8 (6-14) Blood Urea Nitrogen 9 mg/dL (7-20) Creatinine 0.5 mg/dL (0.6-1.0) Estimated GFR (Cockcroft-Gault) 133.4 Glucose Level 123 mg/dL (70-99) Calcium Level 8.5 mg/dL (8.5-10.1) Microbiology 07/01/18 Blood Culture - Preliminary, Resulted NO GROWTH AFTER 3 DAYS 06/30/18 Urine Culture - Preliminary, Resulted 06/30/18 Urine Culture Result 1 (JESIKA) - Preliminary, Resulted 06/30/18 Aerobic Culture - Preliminary, Resulted 06/30/18 Aerobic Culture Result 1 (JESIKA) - Preliminary, Resulted 06/30/18 Gram Stain - Final, Resulted 06/30/18 Gram Stain Result 1 (JESIKA) - Final, Resulted 06/30/18 Gram Stain Result 2 (JESIKA) - Final, Resulted 06/30/18 Gram Stain Result 3 (JESIKA) - Final, Resulted Medications Current Medications Sodium Chloride 1,000 ml @ 1,000 mls/hr Q1H IV Last administered on at 18:39; Start 06/30/18 at 18:19; Stop 06/30/18 at 19:18; Status DC Hydromorphone HCl (Dilaudid) 2 mg 1X ONCE IV Last administered on 06/30/18at 18:39; Start 06/30/18 at 18:30; Stop 06/30/18 at 18:31; Status DC Ondansetron HCl (Zofran) 4 mg 1X ONCE IV Last administered on 06/30/18at 18:39 ; Start 06/30/18 at 18:30; Stop 06/30/18 at 18:31; Status DC Alteplase, Recombinant (Cathflo) 2 mg 1X ONCE INT CAT Last administered on at 18:40; Start 06/30/18 at 18:45; Stop 06/30/18 at 18:46; Status DC Ceftriaxone Sodium 50 ml @ 100 mls/hr 1X ONCE IV Last administered on at 20:07; Start 06/30/18 at 20:15; Stop 06/30/18 at 20:44; Status DC Acetaminophen (Tylenol) 1,000 mg 1X ONCE PO Last administered on 06/30/18at 20 :28; Start 06/30/18 at 20:30; Stop 06/30/18 at 20:31; Status DC Hydromorphone HCl (Dilaudid) 0.5 mg PRN Q4HRS PRN IV PAIN Last administered on 06/30/18at 22:49; Start 06/30/18 at 22:15 Ondansetron HCl (Zofran) 4 mg PRN Q6HRS PRN IV NAUSEA/VOMITING; Start at 22:15 Oxycodone HCl (Roxicodone) 30 mg PRN Q4HRS PRN PO PAIN SEVERE Last administered on 07/04/18at 09:43; Start 06/30/18 at 23:45 Oxycodone HCl (OxyCONTIN) 20 mg Q12HR PO Last administered on 07/04/18at 08:03 ; Start 07/01/18 at 09:00 Acetaminophen (Tylenol) 650 mg PRN Q6HRS PRN PO FEVER Last administered on at 12:34; Start 07/01/18 at 04:15; Stop 07/01/18 at 13:59; Status DC Vancomycin HCl 1 gm/Sodium Chloride 250 ml @ 250 mls/hr 1X ONCE IV ; Start at 10:30; Stop 07/01/18 at 11:29; Status UNV Ceftriaxone Sodium 1 gm/ Dextrose 50 ml @ 100 mls/hr Q12H IV ; Start 07/01/18 at 10:30; Status UNV Ceftriaxone Sodium (Rocephin) 1 gm Q12H IVP ; Start 07/01/18 at 10:45; Stop at 10:45; Status DC Vancomycin HCl (Vanco Per Pharmacy) 1 each PRN DAILY PRN MC SEE COMMENTS; Start 07/01/18 at 10:45; Stop 07/01/18 at 10:45; Status DC Vancomycin HCl 2 gm/Sodium Chloride 500 ml @ 250 mls/hr 1X ONCE IV Last administered on 07/01/18at 11:05; Start 07/01/18 at 11:00; Stop 07/01/18 at 12 :59; Status DC Meropenem 500 mg/ Sodium Chloride 50 ml @ 100 mls/hr Q8HRS IV Last administered on 07/04/18at 05:36; Start 07/01/18 at 11:00 Acetaminophen (Tylenol) 1,000 mg PRN Q6HRS PRN PO MILD PAIN / TEMP Last administered on 07/01/18at 21:57; Start 07/01/18 at 13:30 Ascorbic Acid (Vitamin C) 500 mg BID PO Last administered on 07/04/18at 08:03; Start 07/01/18 at 21:00 Baclofen (Lioresal) 10 mg PRN TID PRN PO MUSCLE SPASMS; Start 07/01/18 at 13: 30 Bisacodyl (Dulcolax Supp) 10 mg PRN DAILY PRN RC CONSTIPATION; Start 07/01/18 at 13:30 Cetirizine HCl (ZyrTEC) 10 mg DAILY PO Last administered on 07/04/18at 08:03; Start 07/01/18 at 14:01 Citalopram Hydrobromide (CeleXA) 10 mg QHS PO Last administered on 07/03/18at 21:05; Start 07/01/18 at 21:00 Clotrimazole (Lotrimin) 1 lisa PRN BID PRN TP RASH; Start 07/01/18 at 13:30 Cyanocobalamin (Vitamin B-12) 1,000 mcg QMONTH IM Last administered on at 16:10; Start 07/01/18 at 15:00 Lactulose (Lactulose) 10 gm PRN BID PRN PO CONSTIPATION Last administered on at 16:44; Start 07/01/18 at 13:30 Multivitamins (Thera M Plus) 1 tab QHS PO Last administered on 07/03/18at 21:04 ; Start 07/01/18 at 21:00 Sodium Monofluorophosphate (Fleet Adult) 133 ml 1X PRN PRN RC CONSTIPATION; Start 07/01/18 at 13:30 Nortriptyline HCl (Pamelor) 25 mg QHS PO Last administered on 07/03/18at 21:05 ; Start 07/01/18 at 21:00 Senna/Docusate Sodium (Senna Plus) 2 tab BID PO Last administered on at 08:03; Start 07/01/18 at 21:00 Silver Sulfadiazine (Silvadene) 1 lisa DAILY TP ; Start 07/01/18 at 15:00 Zinc Sulfate (Orazinc) 220 mg QHS PO Last administered on 07/03/18at 21:04; Start 07/01/18 at 21:00 Non-Formulary Medication (Amino Acids/ Protein Hydrolys (Prosource No Carb Liquid Pkt)) 30 ml BID PO ; Start 07/01/18 at 21:00; Status UNV Multivitamins (Thera M Plus) 1 tab DAILY PO ; Start 07/01/18 at 15:00; Status Cancel Buspirone HCl (Buspar) 7.5 mg TID PO Last administered on 07/04/18 08:03; Start 07/01/18 at 15:00 Hydrocortisone (Cortaid) 1 lisa PRN TID PRN TP ITCHING; Start 07/01/18 at 15:00 Polysaccharide Iron Complex (Niferex 150) 150 mg DAILY PO Last administered on 07/04/18at 09:43; Start 07/01/18 at 15:00 Lactobacillus Rhamnosus (Culturelle) 1 cap BID PO Last administered on 08:03; Start 07/01/18 at 21:00 Pantoprazole Sodium (Protonix) 40 mg DAILYAC PO Last administered on at 07:25; Start 07/01/18 at 16:30 Artificial Tears (Artificial Tears) 1 drop PRN Q2HRS PRN OU DRY EYE; Start at 15:00; Status Cancel Saliva Substitute (Biotene Moisturizing Mouth) 2 spray PRN Q2HRS PRN PO DRY MOUTH; Start 07/01/18 at 15:00; Status Cancel Enoxaparin Sodium (Lovenox 40mg Syringe) 40 mg BID SQ Last administered on at 08:04; Start 07/01/18 at 15:00 Sodium Chloride 1,000 ml @ 100 mls/hr Q10H IV Last administered on 07/03/18at 03:45; Start 07/01/18 at 13:45; Stop 07/03/18 at 08:18; Status DC Artificial Tears (Artificial Tears) 1 drop PRN Q2HRS PRN OU DRY EYE Last administered on 07/03/18at 16:44; Start 07/01/18 at 15:15 Saliva Substitute (Biotene Moisturizing Mouth) 2 spray PRN Q2HRS PRN PO DRY MOUTH; Start 07/01/18 at 15:30 Nystatin (Nystop) 1 lisa BID TP Last administered on 07/04/18at 09:44; Start at 22:00 Potassium Chloride (Klor-Con) 40 meq 1X ONCE PO Last administered on at 08:45; Start 07/02/18 at 07:30; Stop 07/02/18 at 07:31; Status DC Potassium Chloride (Klor-Con) 40 meq 1X ONCE PO Last administered on at 09:24; Start 07/03/18 at 08:30; Stop 07/03/18 at 08:31; Status DC Potassium Chloride (Klor-Con) 40 meq DAILYWBKFT PO Last administered on at 08:03; Start 07/04/18 at 08:00 Mupirocin (Bactroban) 1 lisa BID TP Last administered on 07/04/18at 08:05; Start 07/03/18 at 11:00 Active Scripts Active Reported Silvadene (Silver Sulfadiazine) 20 Gm Cream..g. 1 Lisa TP DAILY Lotrimin Af (Clotrimazole) 12 Gm Cream..g. 1 Lisa TP PRN BID PRN Hydrocortisone (Hydrocortisone Acetate) 28 Gm Oint...g. 28 Gm TP PRN TID PRN Cyanocobalamin Injection (Cyanocobalamin (Vitamin B-12)) 1,000 Mcg/1 Ml Vial 1 Ml IM QMONTH Visine Tears Drops (Peg 400/Hypromellose/Glycerin) 15 Ml Drops 15 Ml OP PRN Q2HR PRN Lactulose 20 Gm/30 Ml Solution 10 Gm PO PRN BID PRN Fleet Enema (Na Phos,M-B/Na Phos,Di-Ba) 133 Ml Enema 133 Ml RC PRN PRN Bisacodyl 10 Mg Supp.rect 10 Mg RC PRN DAILY PRN Biotene (Saliva Substitution Combo No.9) 1,000 Ml Mouthwash 1,000 Ml MM PRN Q2HR PRN Baclofen 10 Mg Tablet 1 Tab PO PRN TID PRN Acetaminophen 500 Mg Tablet 2 Tab PO PRN Q6HRS PRN Zinc Sulfate 220 Mg Capsule 220 Mg PO QHS Thera M Plus Tablet (Multivits,Ca,Minerals/Iron/FA) 1 Each Tablet 1 Each PO QHS Nortriptyline Hcl 25 Mg Capsule 1 Cap PO QHS Citalopram Hbr (Citalopram Hydrobromide) 10 Mg Tablet 1 Tab PO QHS Buspirone Hcl 15 Mg Tablet 7.5 Tab PO TID Vitamin C (Ascorbic Acid) 500 Mg Tablet 500 Mg PO BID Senexon-S Tablet (Sennosides/Docusate Sodium) 1 Each Tablet 2 Each PO BID Prosource No Carb Liquid Pkt (Amino Acids/Protein Hydrolys) 30 Ml Liquid.pkt 30 Ml PO BID Zion Packet (Argin/Glut/Cahmb/Collag/Mv-Min) 1 Each Powd.pack 1 Each PO BID Culturelle (Lactobacillus Rhamnosus Gg) 1 Each Capsule 1 Each PO BID Poly-Iron 150 Forte Capsule (Iron Ps Cmplx/Vit B12/Fa) 1 Each Capsule 1 Each PO DAILY Protonix (Pantoprazole Sodium) 20 Mg Tablet.dr 40 Mg PO DAILY Cetirizine Hcl 10 Mg Tablet 1 Tab PO DAILY Roxicodone (Oxycodone Hcl) 30 Mg Tablet 30 Mg PO Q4HRS PRN Oxycontin (Oxycodone HCl) 20 Mg Tab.er.12h 20 Mg PO BID Vitals/I & O Vital Sign - Last 24 Hours 07/03/18 07/03/18 07/03/18 07/03/18 10:42 11:00 12:34 15:00 Temp 98.2 98.1 98.2 98.1 Pulse 82 82 Resp 18 18 B/P (MAP) 131/79 (96) 139/77 (97) Pulse Ox 98 91 O2 Delivery Room Air Room Air Room Air Room Air 07/03/18 07/03/18 07/03/18 07/03/18 16:43 19:20 19:45 20:00 Temp 98.6 98.6 Pulse 83 Resp 18 20 B/P (MAP) 127/79 (95) Pulse Ox 94 91 O2 Delivery Room Air Room Air Room Air Room Air 07/03/18 07/03/18 07/03/18 07/04/18 21:07 23:15 23:45 01:14 Temp 98.2 98.2 Pulse 78 Resp 20 18 18 20 B/P (MAP) 139/74 (95) Pulse Ox 91 96 96 96 O2 Delivery Room Air Room Air Room Air Room Air 07/04/18 07/04/18 07/04/18 07/04/18 02:14 03:20 05:11 07:30 Temp 97.6 98.2 97.6 98.2 Pulse 88 91 Resp 20 18 20 18 B/P (MAP) 122/75 (91) 139/72 (94) Pulse Ox 93 93 93 95 O2 Delivery Room Air Room Air Room Air Room Air 07/04/18 07/04/18 08:03 09:43 O2 Delivery Room Air Room Air Intake and Output 07/03/18 07/03/18 07/04/18 15:00 23:00 07:00 Intake Total 240 ml 480 ml Output Total 1000 ml 4300 ml Balance -760 ml -3820 ml GARETT BERTRAND MD Jul 04, 2018 09:49
--- NOTE | 2018-07-04 10:12 | PDOC ---
Infectious Disease Note Subjective Subjective Tired this morning, didn't sleep well last night No BM No F/C ROS ROS per HPI Vital Sign Vital Signs Vital Signs Date Time Temp Pulse Resp B/P (MAP) Pulse Ox O2 Delivery O2 Flow Rate FiO2 07/04/18 09:43 Room Air 07/04/18 07:30 98.2 91 18 139/72 (94) 95 98.2 Physical Exam PHYSICAL EXAM GENERAL: Propped up in bed, alert, NAD HEENT: Oral cavity clear NECK: Supple. LUNGS: Clear. HEART: S1 and S2 regular. ABDOMEN: Obese, soft, SPC intact/clean EXTREMITIES: BLE 2+ edema. No cyanosis SKIN: Sacral decubitus, which is to the bone. 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 Paraplegic. Right-sided tunneled PICC (over 4 months old per pt) clean Labs Lab Laboratory Tests Test 07/04/18 05:45 White Blood Count 7.0 x10^3/uL (4.0-11.0) Red Blood Count 3.81 x10^6/uL (3.50-5.40) Hemoglobin 10.3 g/dL (12.0-15.5) Hematocrit 31.5 % (36.0-47.0) Mean Corpuscular Volume 83 fL (79-100) Mean Corpuscular Hemoglobin 27 pg (25-35) Mean Corpuscular Hemoglobin Concent 33 g/dL (31-37) Red Cell Distribution Width 16.6 % (11.5-14.5) Platelet Count 295 x10^3/uL (140-400) Neutrophils (%) (Auto) 50 % (31-73) Lymphocytes (%) (Auto) 40 % (24-48) Monocytes (%) (Auto) 4 % (0-9) Eosinophils (%) (Auto) 6 % (0-3) Basophils (%) (Auto) 1 % (0-3) Neutrophils # (Auto) 3.5 x10^3uL (1.8-7.7) Lymphocytes # (Auto) 2.8 x10^3/uL (1.0-4.8) Monocytes # (Auto) 0.3 x10^3/uL (0.0-1.1) Eosinophils # (Auto) 0.4 x10^3/uL (0.0-0.7) Basophils # (Auto) 0.0 x10^3/uL (0.0-0.2) Sodium Level 140 mmol/L (136-145) Potassium Level 3.7 mmol/L (3.5-5.1) Chloride Level 104 mmol/L (98-107) Carbon Dioxide Level 28 mmol/L (21-32) Anion Gap 8 (6-14) Blood Urea Nitrogen 9 mg/dL (7-20) Creatinine 0.5 mg/dL (0.6-1.0) Estimated GFR (Cockcroft-Gault) 133.4 Glucose Level 123 mg/dL (70-99) Calcium Level 8.5 mg/dL (8.5-10.1) Micro BLD CULT RESULT 1 Preliminary Pseudomonas aeruginosa URINE CULTURE RES 1 Preliminary Proteus mirabilis Greater than 100,000 colony forming units per mL Abdominal drainage (around SPC) AEROBIC RES 1 Preliminary Proteus mirabilis GRAM STAIN RESULT 2 Final Many gram negative rods. GRAM STAIN RESULT 3 Final Many gram positive cocci. Objective Assessment G neg sepsis (POA) PSAE ? 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 Repeat BC x 2. (line and peripheral - please roque site on bottle) D/w RN D/w Dr. Baires Patient seen and examined. Chart reviewed in detail. Case discussed with LAND DEGRADATION ANALYST. Agree with above Plan CATIA GARCIA APRN Jul 04, 2018 10:12 TOBI RICE MD Jul 04, 2018 19:24
[2018-07-04 12:00] VITALS: BP 125/65
[2018-07-04] MEDS ORDERED: ALTEPLASE 2 MG VIAL INT CAT ONE (12:30)
[2018-07-04 15:28] VITALS: BP 109/66
[2018-07-04 19:00] VITALS: BP 117/53
[2018-07-04] MEDS: CITALOPRAM 10 MG TABLET. PO SCH (20:24)
[2018-07-04] MEDS: ZINC SULFATE 220 MG CAPSULE. PO SCH (20:25)
[2018-07-04] MEDS: MULTIVITAMIN with MINERAL TABLET. PO SCH (20:25)
[2018-07-04] MEDS: NORTRIPTYLINE 25 MG CAPSULE PO SCH (20:25)
[2018-07-04 23:00] VITALS: BP 138/67
[2018-07-05 03:00] VITALS: BP 120/61
[2018-07-05] MEDS: MEROPENEM 500 MG in IV NORMAL SALINE 50ML 50 ML IV SCH (06:00)
[2018-07-05] MEDS: BACLOFEN 10 MG TABLET. PO PRN (06:05)
[2018-07-05 07:00] VITALS: BP 118/61
[2018-07-05] MEDS: IRON POLYSACCHARIDE COMPLEX 150 MG CAPSULE PO SCH (08:44)
[2018-07-05] MEDS: LACTOBACILLUS RHAMNOSUS GG 1 CAPSULE. PO SCH ×2 (08:44→21:14)
[2018-07-05] MEDS: CETIRIZINE HCL 10 MG TABLET. PO SCH (08:44)
[2018-07-05] MEDS: ASCORBIC ACID 500 MG TABLET PO SCH ×2 (08:44→21:14)
[2018-07-05] MEDS: PANTOPRAZOLE 40 MG TABLET.DR. PO SCH (08:45)
[2018-07-05] MEDS: busPIRone 5 MG TABLET. PO SCH ×3 (08:45→21:27)
[2018-07-05] MEDS: POTASSIUM CHLORIDE 20 MEQ TABLET.ER. PO SCH (08:46)
[2018-07-05] MEDS: SENNOSIDES/DOCUSATE 8.6/50MG TABLET. PO SCH ×2 (08:46→21:14)
[2018-07-05] MEDS: ENOXAPARIN 40 MG/0.4 ML SYRINGE. SQ SCH ×2 (08:48→21:16)
[2018-07-05] MEDS: oxyCODONE ER 10 MG TAB.ER.12H PO SCH ×2 (08:48→21:15)
[2018-07-05] MEDS: silver sulfADIAZINE 1% CREAM 25GM TUBE. TP SCH (09:00)
[2018-07-05] MEDS: NYSTATIN TOPICAL POWDER 15GM BOTTLE. TP SCH ×2 (09:00→21:00)
[2018-07-05 11:00] VITALS: BP 117/66
[2018-07-05] MEDS ORDERED: MAGNESIUM HYDROXIDE 2,400 MG/30 ML ORAL.SUSP. PO PRN (12:00)
[2018-07-05] MEDS ORDERED: LACTULOSE 20 GM/30 ML SOLUTION. PO PRN (12:00)
[2018-07-05] MEDS ORDERED: BISACODYL 10 MG SUPP.RECT. PR PRN (12:00)
--- NOTE | 2018-07-05 12:22 | PDOC ---
Infectious Disease Note Subjective: Subjective pt says is doing ok taking a bath helped her No BM No F/C ROS: ROS Negative except for above. Vital Signs: Vital Signs Vital Signs Date Time Temp Pulse Resp B/P (MAP) Pulse Ox O2 Delivery O2 Flow Rate FiO2 07/05/18 11:00 97.8 111 20 117/66 (83) 92 Room Air 97.8 Physical Exam: PHYSICAL EXAM GENERAL: Propped up in bed, alert, NAD HEENT: Oral cavity clear NECK: Supple. LUNGS: Clear. HEART: S1 and S2 regular. ABDOMEN: Obese, soft, SPC intact/clean EXTREMITIES: BLE 2+ edema. No cyanosis SKIN: Sacral decubitus, which is to the bone. 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 Paraplegic. Right-sided tunneled PICC (over 4 months old per pt) clean Medications: Inpatient Meds: Current Medications Medications (Trade) Dose Ordered Sig/Ren Start Time Stop Time Status Last Admin Dose Admin Acetaminophen (Tylenol) 1,000 mg PRN Q6HRS PRN 07/01/18 13:30 07/01/18 21:57 1,000 MG Alteplase, Recombinant (Cathflo) 2 mg 1X ONCE 07/04/18 12:30 07/04/18 12:31 DC 07/04/18 12:42 2 MG Artificial Tears (Artificial Tears) 1 drop PRN Q2HRS PRN 07/01/18 15:15 07/03/18 16:44 1 DROP Ascorbic Acid (Vitamin C) 500 mg BID 07/01/18 21:00 07/05/18 08:44 500 MG Baclofen (Lioresal) 10 mg PRN TID PRN 07/01/18 13:30 07/05/18 06:05 10 MG Bisacodyl (Dulcolax Supp) 10 mg PRN DAILY PRN 07/05/18 12:00 Buspirone HCl (Buspar) 7.5 mg TID 07/01/18 15:00 07/05/18 08:45 7.5 MG Ceftriaxone Sodium 1 gm/ Dextrose 50 ml @ 100 mls/hr Q12H 07/01/18 10:30 UNV Ceftriaxone Sodium (Rocephin) 1 gm Q12H 07/01/18 10:45 07/01/18 10:45 DC Cetirizine HCl (ZyrTEC) 10 mg DAILY 07/01/18 14:01 07/05/18 08:44 10 MG Citalopram Hydrobromide (CeleXA) 10 mg QHS 07/01/18 21:00 07/04/18 20:24 10 MG Clotrimazole (Lotrimin) 1 rosy PRN BID PRN 07/01/18 13:30 Cyanocobalamin (Vitamin B-12) 1,000 mcg QMONTH 07/01/18 15:00 07/01/18 16:10 1,000 MCG Docusate Sodium (Colace) 100 mg BID 07/05/18 12:30 Enoxaparin Sodium (Lovenox 40mg Syringe) 40 mg BID 07/01/18 15:00 07/05/18 08:48 40 MG Hydrocortisone (Cortaid) 1 rosy PRN TID PRN 07/01/18 15:00 Hydromorphone HCl (Dilaudid) 0.5 mg PRN Q4HRS PRN 06/30/18 22:15 06/30/18 22:49 0.5 MG Lactobacillus Rhamnosus (Culturelle) 1 cap BID 07/01/18 21:00 07/05/18 08:44 1 CAP Lactulose (Lactulose) 20 gm PRN Q12HR PRN 07/05/18 12:00 Magnesium Hydroxide (Milk Of Magnesia) 2,400 mg PRN Q12HR PRN 07/05/18 12:00 Meropenem 500 mg/ Sodium Chloride 50 ml @ 100 mls/hr Q8HRS 07/01/18 11:00 07/05/18 06:00 100 MLS/HR Multivitamins (Thera M Plus) 1 tab DAILY 07/01/18 15:00 Cancel Mupirocin (Bactroban) 1 rosy BID 07/03/18 11:00 07/04/18 21:00 1 ROSY Non-Formulary Medication (Amino Acids/ Protein Hydrolys (Prosource No Carb Liquid Pkt)) 30 ml BID 07/01/18 21:00 UNV Nortriptyline HCl (Pamelor) 25 mg QHS 07/01/18 21:00 07/04/18 20:25 25 MG Nystatin (Nystop) 1 rosy BID 07/01/18 22:00 07/04/18 21:00 1 ROSY Ondansetron HCl (Zofran) 4 mg PRN Q6HRS PRN 06/30/18 22:15 Oxycodone HCl (OxyCONTIN) 20 mg Q12HR 07/01/18 09:00 07/05/18 08:48 20 MG Oxycodone HCl (Roxicodone) 30 mg PRN Q4HRS PRN 06/30/18 23:45 07/05/18 08:47 30 MG Pantoprazole Sodium (Protonix) 40 mg DAILYAC 07/01/18 16:30 07/05/18 08:45 40 MG Polysaccharide Iron Complex (Niferex 150) 150 mg DAILY 07/01/18 15:00 07/05/18 08:44 150 MG Potassium Chloride (Klor-Con) 40 meq DAILYWBKFT 07/04/18 08:00 07/05/18 08:46 40 MEQ Saliva Substitute (Biotene Moisturizing Mouth) 2 spray PRN Q2HRS PRN 07/01/18 15:30 Senna/Docusate Sodium (Senna Plus) 1 tab BID 07/05/18 21:00 UNV Silver Sulfadiazine (Silvadene) 1 rosy DAILY 07/01/18 15:00 Sodium Monofluorophosphate (Fleet Adult) 133 ml 1X PRN PRN 07/01/18 13:30 Sodium Chloride 1,000 ml @ 100 mls/hr Q10H 07/01/18 13:45 07/03/18 08:18 DC 07/03/18 03:45 100 MLS/HR Vancomycin HCl (Vanco Per Pharmacy) 1 each PRN DAILY PRN 07/01/18 10:45 07/01/18 10:45 DC Vancomycin HCl 1 gm/Sodium Chloride 250 ml @ 250 mls/hr 1X ONCE 07/01/18 10:30 07/01/18 11:29 UNV Vancomycin HCl 2 gm/Sodium Chloride 500 ml @ 250 mls/hr 1X ONCE 07/01/18 11:00 07/01/18 12:59 DC 07/01/18 11:05 250 MLS/HR Zinc Sulfate (Orazinc) 220 mg QHS 07/01/18 21:00 07/04/18 20:25 220 MG Labs: Micro RUN DATE: 07/04/18 PAGE 1 RUN TIME: 1832 [facility] [address] [place] [address] Rashi Forbes M.D., Policy Writer Sales PATIENT: JOHN HUNTER ACCT: [id number] LOC: [address] [place] [address] U : [id number] AGE/SX: 47/F ROOM: [facility] REG : 06/30/[address]: GARETT BERTRAND MD : 1970 BED: 1 DIS : STATUS: ADM IN TLOC: SPEC #: [id number] TAYLOR: 06/30/18 STATUS: COMP REQ #: [id number] RECD: 07/01/[address] [facility] [address]: FRANCISCO JAVIER VALENCIA Jr. DO SOURCE: BLOOD ENTR: 07/01/[address]: SHAWN BELL SPDESC: GARETT BERTRAND MD ORDERED: BLD CULT - LC Procedure Result BLOOD CULTURE LC Final Final report BLD CULT RESULT 1 Final Comment Pseudomonas aeruginosa ANTIMICROBIAL SUSCEPTIBILITY Final Comment S = Susceptible; I = Intermediate; R = Resistant P = Positive; N = Negative MICS are expressed in micrograms per mL Antibiotic RSLT#1 RSLT#2 RSLT#3 RSLT#4 Amikacin S<=2 Cefepime S =2 Ceftazidime S =4 Ciprofloxacin S<=0.25 Gentamicin S<=1 Imipenem I =8 Levofloxacin S =0.5 Meropenem S =4 Piperacillin S =8 Ticarcillin S =32 Tobramycin S<=1 Performed at: DA - [facility] [address], [place], [place] [id number] Superintendent Measurement: MARY Kim MD, Phone: [phone] Objective: Assessment: G neg sepsis (POA) PSAE ? 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
[2018-07-05] MEDS: DOCUSATE SODIUM 100 MG CAPSULE. PO SCH ×2 (14:30→21:14)
[2018-07-05] MEDS: CEFEPIME HCL 2 GM in IV DEXTROSE 5% 100ML 100 ML IV SCH ×2 (14:32→23:56)
[2018-07-05 15:00] VITALS: BP 122/62
--- NOTE | 2018-07-05 15:14 | PDOC ---
PROGRESS NOTES Chief Complaint Chief Complaint Complicated UTI proteus Indwelling suprapubic catheter since transverse myelitis 3 years ago GNR bacteremia pseudomonas GNR sepsis with no organ dysfunction Fevers resolved Bedbound Sacral decubitus secondary to immobility stage IV hypokalemia constipation chronic plan: fu with ID, dc meropenum, add cefepime fu with uro, suprapubic cath changed add stool softner sw for rehab fu History of Present Illness History of Present Illness SHe has no complaints, some mild redness or discharge around the supra pubic cath - started bactroban thursday Garcia has been changed this admission-they change it every monthly She is bed bound from transverse myelitis x 3 yrs and has stage 5 sacral She has very good attitude and outlook in life despite her medical condition Vitals Vitals Vital Signs Date Time Temp Pulse Resp B/P (MAP) Pulse Ox O2 Delivery O2 Flow Rate FiO2 07/05/18 14:30 Room Air 07/05/18 11:00 97.8 111 20 117/66 (83) 92 97.8 Physical Exam Physical Exam GENERAL: Propped up in bed, alert, NAD HEENT: Oral cavity clear NECK: Supple. LUNGS: Clear. HEART: S1 and S2 regular. ABDOMEN: Obese, soft, SPC intact/clean EXTREMITIES: BLE 2+ edema. No cyanosis SKIN: Sacral decubitus, which is to the bone. 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 Paraplegic. Right-sided tunneled PICC (over 4 months old per pt) clean General: Oriented X3, Cooperative Heart: Regular rate, Normal S1, Normal S2 Lungs: Clear Abdomen: Normal bowel sounds, Other (indwelling suprapubic catheter with some redness or discharge around the area) Extremities: No clubbing, No cyanosis Assessment and Plan Assessmemt and Plan Problems Medical Problems: (1) Complication, suprapubic catheter obstruction Status: Acute (2) Urinary tract infection associated with catheterization of urinary tract Status: Acute Comment Review of Relevant I have reviewed the following items roque (where applicable) has been applied. Labs Laboratory Tests Test 07/04/18 05:45 White Blood Count 7.0 x10^3/uL (4.0-11.0) Red Blood Count 3.81 x10^6/uL (3.50-5.40) Hemoglobin 10.3 g/dL (12.0-15.5) Hematocrit 31.5 % (36.0-47.0) Mean Corpuscular Volume 83 fL (79-100) Mean Corpuscular Hemoglobin 27 pg (25-35) Mean Corpuscular Hemoglobin Concent 33 g/dL (31-37) Red Cell Distribution Width 16.6 % (11.5-14.5) Platelet Count 295 x10^3/uL (140-400) Neutrophils (%) (Auto) 50 % (31-73) Lymphocytes (%) (Auto) 40 % (24-48) Monocytes (%) (Auto) 4 % (0-9) Eosinophils (%) (Auto) 6 % (0-3) Basophils (%) (Auto) 1 % (0-3) Neutrophils # (Auto) 3.5 x10^3uL (1.8-7.7) Lymphocytes # (Auto) 2.8 x10^3/uL (1.0-4.8) Monocytes # (Auto) 0.3 x10^3/uL (0.0-1.1) Eosinophils # (Auto) 0.4 x10^3/uL (0.0-0.7) Basophils # (Auto) 0.0 x10^3/uL (0.0-0.2) Sodium Level 140 mmol/L (136-145) Potassium Level 3.7 mmol/L (3.5-5.1) Chloride Level 104 mmol/L (98-107) Carbon Dioxide Level 28 mmol/L (21-32) Anion Gap 8 (6-14) Blood Urea Nitrogen 9 mg/dL (7-20) Creatinine 0.5 mg/dL (0.6-1.0) Estimated GFR (Cockcroft-Gault) 133.4 Glucose Level 123 mg/dL (70-99) Calcium Level 8.5 mg/dL (8.5-10.1) Microbiology 07/04/18 Blood Culture - Preliminary, Resulted NO GROWTH AFTER 1 DAY 06/30/18 Urine Culture - Final, Complete 06/30/18 Urine Culture Result 1 (JESIKA) - Final, Complete 06/30/18 Antimicrobic Susceptibility - Final, Complete 06/30/18 Aerobic Culture - Preliminary, Resulted 06/30/18 Aerobic Culture Result 1 (JESIKA) - Preliminary, Resulted 06/30/18 Gram Stain - Final, Resulted 06/30/18 Gram Stain Result 1 (JESIKA) - Final, Resulted 06/30/18 Gram Stain Result 2 (JESIKA) - Final, Resulted 06/30/18 Gram Stain Result 3 (JESIKA) - Final, Resulted Medications Current Medications Sodium Chloride 1,000 ml @ 1,000 mls/hr Q1H IV Last administered on 18:39; Start 06/30/18 at 18:19; Stop 06/30/18 at 19:18; Status DC Hydromorphone HCl (Dilaudid) 2 mg 1X ONCE IV Last administered on 06/30/18at 18:39; Start 06/30/18 at 18:30; Stop 06/30/18 at 18:31; Status DC Ondansetron HCl (Zofran) 4 mg 1X ONCE IV Last administered on 06/30/18at 18:39 ; Start 06/30/18 at 18:30; Stop 06/30/18 at 18:31; Status DC Alteplase, Recombinant (Cathflo) 2 mg 1X ONCE INT CAT Last administered on at 18:40; Start 06/30/18 at 18:45; Stop 06/30/18 at 18:46; Status DC Ceftriaxone Sodium 50 ml @ 100 mls/hr 1X ONCE IV Last administered on at 20:07; Start 06/30/18 at 20:15; Stop 06/30/18 at 20:44; Status DC Acetaminophen (Tylenol) 1,000 mg 1X ONCE PO Last administered on 06/30/18at 20 :28; Start 06/30/18 at 20:30; Stop 06/30/18 at 20:31; Status DC Hydromorphone HCl (Dilaudid) 0.5 mg PRN Q4HRS PRN IV PAIN Last administered on 06/30/18at 22:49; Start 06/30/18 at 22:15 Ondansetron HCl (Zofran) 4 mg PRN Q6HRS PRN IV NAUSEA/VOMITING; Start at 22:15 Oxycodone HCl (Roxicodone) 30 mg PRN Q4HRS PRN PO PAIN SEVERE Last administered on 07/05/18at 14:30; Start 06/30/18 at 23:45 Oxycodone HCl (OxyCONTIN) 20 mg Q12HR PO Last administered on 07/05/18at 08:48 ; Start 07/01/18 at 09:00 Acetaminophen (Tylenol) 650 mg PRN Q6HRS PRN PO FEVER Last administered on at 12:34; Start 07/01/18 at 04:15; Stop 07/01/18 at 13:59; Status DC Vancomycin HCl 1 gm/Sodium Chloride 250 ml @ 250 mls/hr 1X ONCE IV ; Start at 10:30; Stop 07/01/18 at 11:29; Status UNV Ceftriaxone Sodium 1 gm/ Dextrose 50 ml @ 100 mls/hr Q12H IV ; Start 07/01/18 at 10:30; Status UNV Ceftriaxone Sodium (Rocephin) 1 gm Q12H IVP ; Start 07/01/18 at 10:45; Stop at 10:45; Status DC Vancomycin HCl (Vanco Per Pharmacy) 1 each PRN DAILY PRN MC SEE COMMENTS; Start 07/01/18 at 10:45; Stop 07/01/18 at 10:45; Status DC Vancomycin HCl 2 gm/Sodium Chloride 500 ml @ 250 mls/hr 1X ONCE IV Last administered on 07/01/18at 11:05; Start 07/01/18 at 11:00; Stop 07/01/18 at 12 :59; Status DC Meropenem 500 mg/ Sodium Chloride 50 ml @ 100 mls/hr Q8HRS IV Last administered on 07/05/18at 06:00; Start 07/01/18 at 11:00; Stop 07/05/18 at 13 :20; Status DC Acetaminophen (Tylenol) 1,000 mg PRN Q6HRS PRN PO MILD PAIN / TEMP Last administered on 07/01/18at 21:57; Start 07/01/18 at 13:30 Ascorbic Acid (Vitamin C) 500 mg BID PO Last administered on 07/05/18at 08:44; Start 07/01/18 at 21:00 Baclofen (Lioresal) 10 mg PRN TID PRN PO MUSCLE SPASMS Last administered on at 06:05; Start 07/01/18 at 13:30 Bisacodyl (Dulcolax Supp) 10 mg PRN DAILY PRN RC CONSTIPATION; Start 07/01/18 at 13:30; Stop 07/05/18 at 12:01; Status DC Cetirizine HCl (ZyrTEC) 10 mg DAILY PO Last administered on 07/05/18at 08:44; Start 07/01/18 at 14:01 Citalopram Hydrobromide (CeleXA) 10 mg QHS PO Last administered on 07/04/18at 20:24; Start 07/01/18 at 21:00 Clotrimazole (Lotrimin) 1 lisa PRN BID PRN TP RASH; Start 07/01/18 at 13:30 Cyanocobalamin (Vitamin B-12) 1,000 mcg QMONTH IM Last administered on at 16:10; Start 07/01/18 at 15:00 Lactulose (Lactulose) 10 gm PRN BID PRN PO CONSTIPATION Last administered on at 16:44; Start 07/01/18 at 13:30 Multivitamins (Thera M Plus) 1 tab QHS PO Last administered on 07/04/18at 20:25 ; Start 07/01/18 at 21:00 Sodium Monofluorophosphate (Fleet Adult) 133 ml 1X PRN PRN RC CONSTIPATION; Start 07/01/18 at 13:30 Nortriptyline HCl (Pamelor) 25 mg QHS PO Last administered on 07/04/18at 20:25 ; Start 07/01/18 at 21:00 Senna/Docusate Sodium (Senna Plus) 2 tab BID PO Last administered on at 08:46; Start 07/01/18 at 21:00 Silver Sulfadiazine (Silvadene) 1 lisa DAILY TP ; Start 07/01/18 at 15:00 Zinc Sulfate (Orazinc) 220 mg QHS PO Last administered on 07/04/18at 20:25; Start 07/01/18 at 21:00 Non-Formulary Medication (Amino Acids/ Protein Hydrolys (Prosource No Carb Liquid Pkt)) 30 ml BID PO ; Start 07/01/18 at 21:00; Status UNV Multivitamins (Thera M Plus) 1 tab DAILY PO ; Start 07/01/18 at 15:00; Status Cancel Buspirone HCl (Buspar) 7.5 mg TID PO Last administered on 07/05/18at 14:29; Start 07/01/18 at 15:00 Hydrocortisone (Cortaid) 1 lisa PRN TID PRN TP ITCHING; Start 07/01/18 at 15:00 Polysaccharide Iron Complex (Niferex 150) 150 mg DAILY PO Last administered on 07/05/18 08:44; Start 07/01/18 at 15:00 Lactobacillus Rhamnosus (Culturelle) 1 cap BID PO Last administered on 08:44; Start 07/01/18 at 21:00 Pantoprazole Sodium (Protonix) 40 mg DAILYAC PO Last administered on 08:45; Start 07/01/18 at 16:30 Artificial Tears (Artificial Tears) 1 drop PRN Q2HRS PRN OU DRY EYE; Start at 15:00; Status Cancel Saliva Substitute (Biotene Moisturizing Mouth) 2 spray PRN Q2HRS PRN PO DRY MOUTH; Start 07/01/18 at 15:00; Status Cancel Enoxaparin Sodium (Lovenox 40mg Syringe) 40 mg BID SQ Last administered on at 08:48; Start 07/01/18 at 15:00 Sodium Chloride 1,000 ml @ 100 mls/hr Q10H IV Last administered on 07/03/18at 03:45; Start 07/01/18 at 13:45; Stop 07/03/18 at 08:18; Status DC Artificial Tears (Artificial Tears) 1 drop PRN Q2HRS PRN OU DRY EYE Last administered on 07/03/18at 16:44; Start 07/01/18 at 15:15 Saliva Substitute (Biotene Moisturizing Mouth) 2 spray PRN Q2HRS PRN PO DRY MOUTH; Start 07/01/18 at 15:30 Nystatin (Nystop) 1 lisa BID TP Last administered on 07/04/18at 21:00; Start at 22:00 Potassium Chloride (Klor-Con) 40 meq 1X ONCE PO Last administered on at 08:45; Start 07/02/18 at 07:30; Stop 07/02/18 at 07:31; Status DC Potassium Chloride (Klor-Con) 40 meq 1X ONCE PO Last administered on at 09:24; Start 07/03/18 at 08:30; Stop 07/03/18 at 08:31; Status DC Potassium Chloride (Klor-Con) 40 meq DAILYWBKFT PO Last administered on at 08:46; Start 07/04/18 at 08:00 Mupirocin (Bactroban) 1 lisa BID TP Last administered on 07/04/18at 21:00; Start 07/03/18 at 11:00 Alteplase, Recombinant (Cathflo) 2 mg 1X ONCE INT CAT Last administered on at 12:42; Start 07/04/18 at 12:30; Stop 07/04/18 at 12:31; Status DC Senna/Docusate Sodium (Senna Plus) 1 tab BID PO ; Start 07/05/18 at 21:00; Status UNV Docusate Sodium (Colace) 100 mg BID PO Last administered on 07/05/18at 14:30; Start 07/05/18 at 12:30 Magnesium Hydroxide (Milk Of Magnesia) 2,400 mg PRN Q12HR PRN PO CONSTIPATION, 1ST CHOICE; Start 07/05/18 at 12:00 Lactulose (Lactulose) 20 gm PRN Q12HR PRN PO CONSTIPATION, 2ND CHOICE; Start 07/05/18 at 12:00 Bisacodyl (Dulcolax Supp) 10 mg PRN DAILY PRN VT CONSTIPATION; Start 07/05/18 at 12:00 Cefepime HCl 2 gm/ Dextrose 100 ml @ 200 mls/hr Q8HRS IV Last administered on 07/05/18at 14:32; Start 07/05/18 at 14:00 Active Scripts Active Reported Silvadene (Silver Sulfadiazine) 20 Gm Cream..g. 1 Lisa TP DAILY Lotrimin Af (Clotrimazole) 12 Gm Cream..g. 1 Lisa TP PRN BID PRN Hydrocortisone (Hydrocortisone Acetate) 28 Gm Oint...g. 28 Gm TP PRN TID PRN Cyanocobalamin Injection (Cyanocobalamin (Vitamin B-12)) 1,000 Mcg/1 Ml Vial 1 Ml IM QMONTH Visine Tears Drops (Peg 400/Hypromellose/Glycerin) 15 Ml Drops 15 Ml OP PRN Q2HR PRN Lactulose 20 Gm/30 Ml Solution 10 Gm PO PRN BID PRN Fleet Enema (Na Phos,M-B/Na Phos,Di-Ba) 133 Ml Enema 133 Ml RC PRN PRN Bisacodyl 10 Mg Supp.rect 10 Mg RC PRN DAILY PRN Biotene (Saliva Substitution Combo No.9) 1,000 Ml Mouthwash 1,000 Ml MM PRN Q2HR PRN Baclofen 10 Mg Tablet 1 Tab PO PRN TID PRN Acetaminophen 500 Mg Tablet 2 Tab PO PRN Q6HRS PRN Zinc Sulfate 220 Mg Capsule 220 Mg PO QHS Thera M Plus Tablet (Multivits,Ca,Minerals/Iron/FA) 1 Each Tablet 1 Each PO QHS Nortriptyline Hcl 25 Mg Capsule 1 Cap PO QHS Citalopram Hbr (Citalopram Hydrobromide) 10 Mg Tablet 1 Tab PO QHS Buspirone Hcl 15 Mg Tablet 7.5 Tab PO TID Vitamin C (Ascorbic Acid) 500 Mg Tablet 500 Mg PO BID Senexon-S Tablet (Sennosides/Docusate Sodium) 1 Each Tablet 2 Each PO BID Prosource No Carb Liquid Pkt (Amino Acids/Protein Hydrolys) 30 Ml Liquid.pkt 30 Ml PO BID Zion Packet (Argin/Glut/Cahmb/Collag/Mv-Min) 1 Each Powd.pack 1 Each PO BID Culturelle (Lactobacillus Rhamnosus Gg) 1 Each Capsule 1 Each PO BID Poly-Iron 150 Forte Capsule (Iron Ps Cmplx/Vit B12/Fa) 1 Each Capsule 1 Each PO DAILY Protonix (Pantoprazole Sodium) 20 Mg Tablet.dr 40 Mg PO DAILY Cetirizine Hcl 10 Mg Tablet 1 Tab PO DAILY Roxicodone (Oxycodone Hcl) 30 Mg Tablet 30 Mg PO Q4HRS PRN Oxycontin (Oxycodone HCl) 20 Mg Tab.er.12h 20 Mg PO BID Vitals/I & O Vital Sign - Last 24 Hours 07/04/18 07/04/18 07/04/18 07/04/18 15:28 19:00 20:00 20:25 Temp 97.9 99.0 97.9 99.0 Pulse 79 85 Resp 18 18 17 B/P (MAP) 109/66 (80) 117/53 (74) Pulse Ox 95 96 O2 Delivery Room Air Room Air Room Air Room Air 10/28/18 10/28/18 10/28/18 10/29/18 20:37 22:35 23:00 00:30 Temp 98.9 98.9 Pulse 80 Resp 17 18 17 B/P (MAP) 138/67 (90) Pulse Ox 97 O2 Delivery Room Air Room Air Room Air 07/05/18 07/05/18 07/05/18 07/05/18 03:00 04:08 05:10 07:00 Temp 98.6 97.5 98.6 97.5 Pulse 74 79 Resp 18 17 17 18 B/P (MAP) 120/61 (80) 118/61 (80) Pulse Ox 93 94 O2 Delivery Room Air Room Air Room Air 07/05/18 07/05/18 07/05/18 07/05/18 08:30 08:47 08:48 11:00 Temp 97.8 97.8 Pulse 111 Resp 20 B/P (MAP) 117/66 (83) Pulse Ox 92 O2 Delivery Room Air Room Air Room Air Room Air 07/05/18 07/05/18 12:45 14:30 O2 Delivery Room Air Room Air Intake and Output 07/04/18 07/04/18 07/05/18 15:00 23:00 07:00 Intake Total 120 ml 300 ml Output Total 950 ml 400 ml 1300 ml Balance -950 ml -280 ml -1000 ml REBECCA JAIME MD Jul 05, 2018 15:14
[2018-07-05] MEDS: MUPIROCIN 2 % TOPICAL CREAM 15GM TUBE. TP SCH ×3 (17:42→21:16)
[2018-07-05 19:00] VITALS: BP 126/74
[2018-07-05] MEDS ORDERED: SENNOSIDES/DOCUSATE 8.6/50MG TABLET. PO SCH (21:00)
[2018-07-05] MEDS: CITALOPRAM 10 MG TABLET. PO SCH (21:14)
[2018-07-05] MEDS: NORTRIPTYLINE 25 MG CAPSULE PO SCH (21:14)
[2018-07-05] MEDS: MULTIVITAMIN with MINERAL TABLET. PO SCH (21:14)
[2018-07-05] MEDS: ZINC SULFATE 220 MG CAPSULE. PO SCH (21:14)
[2018-07-06 03:00] VITALS: BP 121/76
[2018-07-06] MEDS: CEFEPIME HCL 2 GM in IV DEXTROSE 5% 100ML 100 ML IV SCH ×3 (06:14→21:12)
[2018-07-06 06:51] LABS: BASO # 0.1 x10^3/uL (0.0-0.2); BASO % 1 % (0-3); EOS # 0.6 x10^3/uL (0.0-0.7); EOS % 6 % (0-3); HEMATOCRIT 31.6 % (36.0-47.0); HEMOGLOBIN 10.7 g/dL (12.0-15.5); LYMPH # 3.6 x10^3/uL (1.0-4.8); LYMPH % 38 % (24-48); MEAN CORPUSCULAR HEMOGLOBIN 28 pg (25-35); MEAN CORPUSCULAR HGB CONC 34 g/dL (31-37); MEAN CORPUSCULAR VOLUME 82 fL (79-100); MONO # 0.7 x10^3/uL (0.0-1.1); MONO % 7 % (0-9); NEUT # 4.6 x10^3uL (1.8-7.7); NEUT % 48 % (31-73); PLATELET COUNT 343 x10^3/uL (140-400); RED BLOOD COUNT 3.84 x10^6/uL (3.50-5.40); RED CELL DISTRIBUTION WIDTH 16.6 % (11.5-14.5); WHITE BLOOD COUNT 9.6 x10^3/uL (4.0-11.0)
[2018-07-06 07:00] LABS: CALCIUM 8.8 mg/dL (8.5-10.1); CREATININE 0.5 mg/dL (0.6-1.0); GFR 133.4
[2018-07-06] MEDS: POTASSIUM CHLORIDE 20 MEQ TABLET.ER. PO SCH (08:59)
[2018-07-06] MEDS: MUPIROCIN 2 % TOPICAL CREAM 15GM TUBE. TP SCH ×2 (09:00→21:12)
[2018-07-06] MEDS: busPIRone 5 MG TABLET. PO SCH ×3 (09:00→21:09)
[2018-07-06] MEDS: NYSTATIN TOPICAL POWDER 15GM BOTTLE. TP SCH ×2 (09:00→21:12)
[2018-07-06] MEDS: LACTOBACILLUS RHAMNOSUS GG 1 CAPSULE. PO SCH ×2 (09:00→21:09)
[2018-07-06] MEDS: silver sulfADIAZINE 1% CREAM 25GM TUBE. TP SCH (09:00)
[2018-07-06] MEDS: ASCORBIC ACID 500 MG TABLET PO SCH ×2 (09:01→21:10)
[2018-07-06] MEDS: SENNOSIDES/DOCUSATE 8.6/50MG TABLET. PO SCH ×2 (09:04→21:09)
[2018-07-06] MEDS: oxyCODONE ER 10 MG TAB.ER.12H PO SCH ×2 (09:04→21:10)
[2018-07-06] MEDS: PANTOPRAZOLE 40 MG TABLET.DR. PO SCH (09:04)
[2018-07-06] MEDS: IRON POLYSACCHARIDE COMPLEX 150 MG CAPSULE PO SCH (09:05)
[2018-07-06] MEDS: DOCUSATE SODIUM 100 MG CAPSULE. PO SCH ×2 (09:05→21:10)
[2018-07-06] MEDS: CETIRIZINE HCL 10 MG TABLET. PO SCH (09:05)
[2018-07-06] MEDS: ENOXAPARIN 40 MG/0.4 ML SYRINGE. SQ SCH ×2 (09:06→21:08)
[2018-07-06] MEDS ORDERED: MAGNESIUM CITRATE 296 ML SOLUTION. PO PRN (10:45)
[2018-07-06] MEDS ORDERED: diphenhydrAMINE HCL 25 MG CAPSULE PO PRN (10:45)
--- NOTE | 2018-07-06 10:49 | PDOC ---
Infectious Disease Note Subjective: Subjective pt says is tired needs to sleep a little longer No F/C NV/D ROS: ROS Negative except for above. Vital Signs: Vital Signs Vital Signs Date Time Temp Pulse Resp B/P (MAP) Pulse Ox O2 Delivery O2 Flow Rate FiO2 07/06/18 09:37 18 91 Room Air 07/06/18 03:00 98.5 103 121/76 (91) 98.5 Physical Exam: PHYSICAL EXAM GENERAL: Propped up in bed, alert, NAD HEENT: Oral cavity clear NECK: Supple. LUNGS: Clear. HEART: S1 and S2 regular. ABDOMEN: Obese, soft, SPC intact/clean EXTREMITIES: BLE 2+ edema. No cyanosis SKIN: Sacral decubitus, which is to the bone. 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 Paraplegic. Right-sided tunneled PICC (over 4 months old per pt) clean Medications: Inpatient Meds: Current Medications Medications (Trade) Dose Ordered Sig/Ren Start Time Stop Time Status Last Admin Dose Admin Acetaminophen (Tylenol) 1,000 mg PRN Q6HRS PRN 07/01/18 13:30 07/01/18 21:57 1,000 MG Alteplase, Recombinant (Cathflo) 2 mg 1X ONCE 07/04/18 12:30 07/04/18 12:31 DC 07/04/18 12:42 2 MG Artificial Tears (Artificial Tears) 1 drop PRN Q2HRS PRN 07/01/18 15:15 07/03/18 16:44 1 DROP Ascorbic Acid (Vitamin C) 500 mg BID 07/01/18 21:00 07/06/18 09:01 500 MG Baclofen (Lioresal) 10 mg PRN TID PRN 07/01/18 13:30 07/05/18 06:05 10 MG Bisacodyl (Dulcolax Supp) 10 mg PRN DAILY PRN 07/05/18 12:00 Buspirone HCl (Buspar) 7.5 mg TID 07/01/18 15:00 07/06/18 09:00 7.5 MG Cefepime HCl 2 gm/ Dextrose 100 ml @ 200 mls/hr Q8HRS 07/05/18 14:00 07/06/18 06:14 200 MLS/HR Ceftriaxone Sodium 1 gm/ Dextrose 50 ml @ 100 mls/hr Q12H 07/01/18 10:30 UNV Ceftriaxone Sodium (Rocephin) 1 gm Q12H 07/01/18 10:45 07/01/18 10:45 DC Cetirizine HCl (ZyrTEC) 10 mg DAILY 07/01/18 14:01 07/06/18 09:05 10 MG Citalopram Hydrobromide (CeleXA) 10 mg QHS 07/01/18 21:00 07/05/18 21:14 10 MG Clotrimazole (Lotrimin) 1 rosy PRN BID PRN 07/01/18 13:30 Cyanocobalamin (Vitamin B-12) 1,000 mcg QMONTH 07/01/18 15:00 07/01/18 16:10 1,000 MCG Diphenhydramine HCl (Benadryl) 25 mg PRN Q6HRS PRN 07/06/18 10:45 Docusate Sodium (Colace) 100 mg BID 07/05/18 12:30 07/06/18 09:05 100 MG Enoxaparin Sodium (Lovenox 40mg Syringe) 40 mg BID 07/01/18 15:00 07/06/18 09:06 40 MG Hydrocortisone (Cortaid) 1 rosy PRN TID PRN 07/01/18 15:00 Hydromorphone HCl (Dilaudid) 0.5 mg PRN Q4HRS PRN 06/30/18 22:15 06/30/18 22:49 0.5 MG Lactobacillus Rhamnosus (Culturelle) 1 cap BID 07/01/18 21:00 07/06/18 09:00 1 CAP Lactulose (Lactulose) 20 gm PRN Q12HR PRN 07/05/18 12:00 Magnesium Hydroxide (Milk Of Magnesia) 2,400 mg PRN Q12HR PRN 07/05/18 12:00 07/06/18 04:03 2,400 MG Magnesium Citrate (Citroma) 296 ml PRN 1X PRN 07/06/18 10:45 Meropenem 500 mg/ Sodium Chloride 50 ml @ 100 mls/hr Q8HRS 07/01/18 11:00 07/05/18 13:20 DC 07/05/18 06:00 100 MLS/HR Multivitamins (Thera M Plus) 1 tab DAILY 07/01/18 15:00 Cancel Mupirocin (Bactroban) 1 rosy BID 07/03/18 11:00 07/06/18 09:00 1 ROSY Non-Formulary Medication (Amino Acids/ Protein Hydrolys (Prosource No Carb Liquid Pkt)) 30 ml BID 07/01/18 21:00 UNV Nortriptyline HCl (Pamelor) 25 mg QHS 07/01/18 21:00 07/05/18 21:14 25 MG Nystatin (Nystop) 1 rosy BID 07/01/18 22:00 07/04/18 21:00 1 ROSY Ondansetron HCl (Zofran) 4 mg PRN Q6HRS PRN 06/30/18 22:15 Oxycodone HCl (OxyCONTIN) 20 mg Q12HR 07/01/18 09:00 07/06/18 09:04 20 MG Oxycodone HCl (Roxicodone) 30 mg PRN Q4HRS PRN 06/30/18 23:45 07/06/18 09:37 30 MG Pantoprazole Sodium (Protonix) 40 mg DAILYAC 07/01/18 16:30 07/06/18 09:04 40 MG Polysaccharide Iron Complex (Niferex 150) 150 mg DAILY 07/01/18 15:00 07/06/18 09:05 150 MG Potassium Chloride (Klor-Con) 40 meq DAILYWBKFT 07/04/18 08:00 07/06/18 08:59 40 MEQ Saliva Substitute (Biotene Moisturizing Mouth) 2 spray PRN Q2HRS PRN 07/01/18 15:30 Senna/Docusate Sodium (Senna Plus) 1 tab BID 07/05/18 21:00 UNV Silver Sulfadiazine (Silvadene) 1 rosy DAILY 07/01/18 15:00 Sodium Monofluorophosphate (Fleet Adult) 133 ml 1X PRN PRN 07/01/18 13:30 Sodium Chloride 1,000 ml @ 100 mls/hr Q10H 07/01/18 13:45 07/03/18 08:18 DC 07/03/18 03:45 100 MLS/HR Vancomycin HCl (Vanco Per Pharmacy) 1 each PRN DAILY PRN 07/01/18 10:45 07/01/18 10:45 DC Vancomycin HCl 1 gm/Sodium Chloride 250 ml @ 250 mls/hr 1X ONCE 07/01/18 10:30 07/01/18 11:29 UNV Vancomycin HCl 2 gm/Sodium Chloride 500 ml @ 250 mls/hr 1X ONCE 07/01/18 11:00 07/01/18 12:59 DC 07/01/18 11:05 250 MLS/HR Zinc Sulfate (Orazinc) 220 mg QHS 07/01/18 21:00 07/05/18 21:14 220 MG Labs: Lab Laboratory Tests Test 07/06/18 06:20 White Blood Count 9.6 x10^3/uL (4.0-11.0) Red Blood Count 3.84 x10^6/uL (3.50-5.40) Hemoglobin 10.7 g/dL (12.0-15.5) Hematocrit 31.6 % (36.0-47.0) Mean Corpuscular Volume 82 fL (79-100) Mean Corpuscular Hemoglobin 28 pg (25-35) Mean Corpuscular Hemoglobin Concent 34 g/dL (31-37) Red Cell Distribution Width 16.6 % (11.5-14.5) Platelet Count 343 x10^3/uL (140-400) Neutrophils (%) (Auto) 48 % (31-73) Lymphocytes (%) (Auto) 38 % (24-48) Monocytes (%) (Auto) 7 % (0-9) Eosinophils (%) (Auto) 6 % (0-3) Basophils (%) (Auto) 1 % (0-3) Neutrophils # (Auto) 4.6 x10^3uL (1.8-7.7) Lymphocytes # (Auto) 3.6 x10^3/uL (1.0-4.8) Monocytes # (Auto) 0.7 x10^3/uL (0.0-1.1) Eosinophils # (Auto) 0.6 x10^3/uL (0.0-0.7) Basophils # (Auto) 0.1 x10^3/uL (0.0-0.2) Sodium Level 140 mmol/L (136-145) Potassium Level 4.0 mmol/L (3.5-5.1) Chloride Level 103 mmol/L (98-107) Carbon Dioxide Level 31 mmol/L (21-32) Anion Gap 6 (6-14) Blood Urea Nitrogen 12 mg/dL (7-20) Creatinine 0.5 mg/dL (0.6-1.0) Estimated GFR (Cockcroft-Gault) 133.4 Glucose Level 96 mg/dL (70-99) Calcium Level 8.8 mg/dL (8.5-10.1) Micro RUN DATE: 07/04/18 PAGE 1 RUN TIME: 2237 [facility] [address] [place] [address] Rashi Forbes M.D., Sales Strategy Manager PATIENT: JOHN HUNTER ACCT: [id number] LOC: [address] [place] [address] U : [id number] AGE/SX: 47/F ROOM: [facility] REG : 06/30/[address]: GARETT BERTRAND MD : 1970 BED: 1 DIS : STATUS: ADM IN TLOC: SPEC #: [id number] TAYLOR: 06/30/18 STATUS: COMP REQ #: [id number] RECD: 07/01/18-[address]: FRANCISCO JAVIER VALENCIA Jr. DO SOURCE: BLOOD ENTR: 07/01/18-[address]: SHAWN BELL SPDESC: GARETT BERTRAND MD ORDERED: BLD CULT - LC Procedure Result BLOOD CULTURE LC Final Final report BLD CULT RESULT 1 Final Comment Pseudomonas aeruginosa ANTIMICROBIAL SUSCEPTIBILITY Final Comment S = Susceptible; I = Intermediate; R = Resistant P = Positive; N = Negative MICS are expressed in micrograms per mL Antibiotic RSLT#1 RSLT#2 RSLT#3 RSLT#4 Amikacin S<=2 Cefepime S =2 Ceftazidime S =4 Ciprofloxacin S<=0.25 Gentamicin S<=1 Imipenem I =8 Levofloxacin S =0.5 Meropenem S =4 Piperacillin S =8 Ticarcillin S =32 Tobramycin S<=1 Performed at: DA - [facility] [address], [place], [place] [id number] Bandage Winding Machine Operator: MARY Kim MD, Phone: [phone] Objective: Assessment: G neg sepsis (POA) PSAE ? 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
[2018-07-06 11:00] VITALS: BP 108/57
[2018-07-06 12:05] LABS: % ATYL 2 % (0-0); % BANDS 6 % (0-9); % BASOS 2 % (0-3); % EOS 6 % (0-5); % LYMPHS 36 % (24-48); % MONOS 7 % (0-10); % SEGS 41 % (35-66)
[2018-07-06 12:06] LABS: PLT ESTIMATE ADEQUATE (ADEQUATE)
[2018-07-06 12:07] LABS: ANISOCYTOSIS SLIGHT; TOXIC GRANULATION SLIGHT; TOXIC VACUOLATION SLIGHT
--- NOTE | 2018-07-06 13:43 | PDOC ---
PROGRESS NOTES Chief Complaint Chief Complaint Complicated UTI proteus multidrug resistance Indwelling suprapubic catheter since transverse myelitis 3 years ago GNR bacteremia pseudomonas GNR sepsis with no organ dysfunction Fevers resolved Bedbound Sacral decubitus secondary to immobility stage IV hypokalemia constipation chronic plan: fu with ID, dc meropenum, added cefepime fu with uro, suprapubic cath changed add stool softner will dc back to SNF, hope tmr History of Present Illness History of Present Illness SHe has no complaints, some mild redness or discharge around the supra pubic cath - started bactroban thursday Garcia has been changed this admission-they change it every monthly She is bed bound from transverse myelitis x 3 yrs and has stage 5 sacral She has very good attitude and outlook in life despite her medical condition Vitals Vitals Vital Signs Date Time Temp Pulse Resp B/P (MAP) Pulse Ox O2 Delivery O2 Flow Rate FiO2 07/06/18 11:00 97.9 93 18 108/57 (74) 95 Room Air 97.9 Physical Exam Physical Exam GENERAL: Propped up in bed, alert, NAD HEENT: Oral cavity clear NECK: Supple. LUNGS: Clear. HEART: S1 and S2 regular. ABDOMEN: Obese, soft, SPC intact/clean EXTREMITIES: BLE 2+ edema. No cyanosis SKIN: Sacral decubitus, which is to the bone. 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 Paraplegic. Right-sided tunneled PICC (over 4 months old per pt) clean General: Oriented X3, Cooperative Heart: Regular rate, Normal S1, Normal S2 Lungs: Clear Abdomen: Normal bowel sounds, Other (indwelling suprapubic catheter with some redness or discharge around the area) Extremities: No clubbing, No cyanosis Labs LABS Laboratory Tests Test 07/06/18 06:20 White Blood Count 9.6 x10^3/uL (4.0-11.0) Red Blood Count 3.84 x10^6/uL (3.50-5.40) Hemoglobin 10.7 g/dL (12.0-15.5) Hematocrit 31.6 % (36.0-47.0) Mean Corpuscular Volume 82 fL (79-100) Mean Corpuscular Hemoglobin 28 pg (25-35) Mean Corpuscular Hemoglobin Concent 34 g/dL (31-37) Red Cell Distribution Width 16.6 % (11.5-14.5) Platelet Count 343 x10^3/uL (140-400) Neutrophils (%) (Auto) 48 % (31-73) Lymphocytes (%) (Auto) 38 % (24-48) Monocytes (%) (Auto) 7 % (0-9) Eosinophils (%) (Auto) 6 % (0-3) Basophils (%) (Auto) 1 % (0-3) Neutrophils # (Auto) 4.6 x10^3uL (1.8-7.7) Lymphocytes # (Auto) 3.6 x10^3/uL (1.0-4.8) Monocytes # (Auto) 0.7 x10^3/uL (0.0-1.1) Eosinophils # (Auto) 0.6 x10^3/uL (0.0-0.7) Basophils # (Auto) 0.1 x10^3/uL (0.0-0.2) Segmented Neutrophils % 41 % (35-66) Band Neutrophils % 6 % (0-9) Lymphocytes % 36 % (24-48) Atypical Lymphocytes % (Manual) 2 % (0-0) Monocytes % 7 % (0-10) Eosinophils % 6 % (0-5) Basophils % 2 % (0-3) Toxic Granulation Slight Toxic Vacuolation Slight Platelet Estimate Adequate (ADEQUATE) Anisocytosis Slight Sodium Level 140 mmol/L (136-145) Potassium Level 4.0 mmol/L (3.5-5.1) Chloride Level 103 mmol/L (98-107) Carbon Dioxide Level 31 mmol/L (21-32) Anion Gap 6 (6-14) Blood Urea Nitrogen 12 mg/dL (7-20) Creatinine 0.5 mg/dL (0.6-1.0) Estimated GFR (Cockcroft-Gault) 133.4 Glucose Level 96 mg/dL (70-99) Calcium Level 8.8 mg/dL (8.5-10.1) Assessment and Plan Assessmemt and Plan Problems Medical Problems: (1) Complication, suprapubic catheter obstruction Status: Acute (2) Urinary tract infection associated with catheterization of urinary tract Status: Acute Comment Review of Relevant I have reviewed the following items roque (where applicable) has been applied. Labs Laboratory Tests Test 07/06/18 06:20 White Blood Count 9.6 x10^3/uL (4.0-11.0) Red Blood Count 3.84 x10^6/uL (3.50-5.40) Hemoglobin 10.7 g/dL (12.0-15.5) Hematocrit 31.6 % (36.0-47.0) Mean Corpuscular Volume 82 fL (79-100) Mean Corpuscular Hemoglobin 28 pg (25-35) Mean Corpuscular Hemoglobin Concent 34 g/dL (31-37) Red Cell Distribution Width 16.6 % (11.5-14.5) Platelet Count 343 x10^3/uL (140-400) Neutrophils (%) (Auto) 48 % (31-73) Lymphocytes (%) (Auto) 38 % (24-48) Monocytes (%) (Auto) 7 % (0-9) Eosinophils (%) (Auto) 6 % (0-3) Basophils (%) (Auto) 1 % (0-3) Neutrophils # (Auto) 4.6 x10^3uL (1.8-7.7) Lymphocytes # (Auto) 3.6 x10^3/uL (1.0-4.8) Monocytes # (Auto) 0.7 x10^3/uL (0.0-1.1) Eosinophils # (Auto) 0.6 x10^3/uL (0.0-0.7) Basophils # (Auto) 0.1 x10^3/uL (0.0-0.2) Segmented Neutrophils % 41 % (35-66) Band Neutrophils % 6 % (0-9) Lymphocytes % 36 % (24-48) Atypical Lymphocytes % (Manual) 2 % (0-0) Monocytes % 7 % (0-10) Eosinophils % 6 % (0-5) Basophils % 2 % (0-3) Toxic Granulation Slight Toxic Vacuolation Slight Platelet Estimate Adequate (ADEQUATE) Anisocytosis Slight Sodium Level 140 mmol/L (136-145) Potassium Level 4.0 mmol/L (3.5-5.1) Chloride Level 103 mmol/L (98-107) Carbon Dioxide Level 31 mmol/L (21-32) Anion Gap 6 (6-14) Blood Urea Nitrogen 12 mg/dL (7-20) Creatinine 0.5 mg/dL (0.6-1.0) Estimated GFR (Cockcroft-Gault) 133.4 Glucose Level 96 mg/dL (70-99) Calcium Level 8.8 mg/dL (8.5-10.1) Laboratory Tests Test 07/06/18 06:20 White Blood Count 9.6 x10^3/uL (4.0-11.0) Red Blood Count 3.84 x10^6/uL (3.50-5.40) Hemoglobin 10.7 g/dL (12.0-15.5) Hematocrit 31.6 % (36.0-47.0) Mean Corpuscular Volume 82 fL (79-100) Mean Corpuscular Hemoglobin 28 pg (25-35) Mean Corpuscular Hemoglobin Concent 34 g/dL (31-37) Red Cell Distribution Width 16.6 % (11.5-14.5) Platelet Count 343 x10^3/uL (140-400) Neutrophils (%) (Auto) 48 % (31-73) Lymphocytes (%) (Auto) 38 % (24-48) Monocytes (%) (Auto) 7 % (0-9) Eosinophils (%) (Auto) 6 % (0-3) Basophils (%) (Auto) 1 % (0-3) Neutrophils # (Auto) 4.6 x10^3uL (1.8-7.7) Lymphocytes # (Auto) 3.6 x10^3/uL (1.0-4.8) Monocytes # (Auto) 0.7 x10^3/uL (0.0-1.1) Eosinophils # (Auto) 0.6 x10^3/uL (0.0-0.7) Basophils # (Auto) 0.1 x10^3/uL (0.0-0.2) Segmented Neutrophils % 41 % (35-66) Band Neutrophils % 6 % (0-9) Lymphocytes % 36 % (24-48) Atypical Lymphocytes % (Manual) 2 % (0-0) Monocytes % 7 % (0-10) Eosinophils % 6 % (0-5) Basophils % 2 % (0-3) Toxic Granulation Slight Toxic Vacuolation Slight Platelet Estimate Adequate (ADEQUATE) Anisocytosis Slight Sodium Level 140 mmol/L (136-145) Potassium Level 4.0 mmol/L (3.5-5.1) Chloride Level 103 mmol/L (98-107) Carbon Dioxide Level 31 mmol/L (21-32) Anion Gap 6 (6-14) Blood Urea Nitrogen 12 mg/dL (7-20) Creatinine 0.5 mg/dL (0.6-1.0) Estimated GFR (Cockcroft-Gault) 133.4 Glucose Level 96 mg/dL (70-99) Calcium Level 8.8 mg/dL (8.5-10.1) Microbiology 07/04/18 Blood Culture - Preliminary, Resulted NO GROWTH AFTER 2 DAYS 06/30/18 Urine Culture - Final, Complete 06/30/18 Urine Culture Result 1 (JESIKA) - Final, Complete 06/30/18 Antimicrobic Susceptibility - Final, Complete 06/30/18 Aerobic Culture - Preliminary, Resulted 06/30/18 Aerobic Culture Result 1 (JESIKA) - Preliminary, Resulted 06/30/18 Gram Stain - Final, Resulted 06/30/18 Gram Stain Result 1 (JESIKA) - Final, Resulted 06/30/18 Gram Stain Result 2 (JESIKA) - Final, Resulted 06/30/18 Gram Stain Result 3 (JESIKA) - Final, Resulted Medications Current Medications Sodium Chloride 1,000 ml @ 1,000 mls/hr Q1H IV Last administered on at 18:39; Start 06/30/18 at 18:19; Stop 06/30/18 at 19:18; Status DC Hydromorphone HCl (Dilaudid) 2 mg 1X ONCE IV Last administered on 06/30/18at 18:39; Start 06/30/18 at 18:30; Stop 06/30/18 at 18:31; Status DC Ondansetron HCl (Zofran) 4 mg 1X ONCE IV Last administered on 06/30/18at 18:39 ; Start 06/30/18 at 18:30; Stop 06/30/18 at 18:31; Status DC Alteplase, Recombinant (Cathflo) 2 mg 1X ONCE INT CAT Last administered on at 18:40; Start 06/30/18 at 18:45; Stop 06/30/18 at 18:46; Status DC Ceftriaxone Sodium 50 ml @ 100 mls/hr 1X ONCE IV Last administered on at 20:07; Start 06/30/18 at 20:15; Stop 06/30/18 at 20:44; Status DC Acetaminophen (Tylenol) 1,000 mg 1X ONCE PO Last administered on 06/30/18at 20 :28; Start 06/30/18 at 20:30; Stop 06/30/18 at 20:31; Status DC Hydromorphone HCl (Dilaudid) 0.5 mg PRN Q4HRS PRN IV PAIN Last administered on 06/30/18at 22:49; Start 06/30/18 at 22:15 Ondansetron HCl (Zofran) 4 mg PRN Q6HRS PRN IV NAUSEA/VOMITING; Start at 22:15 Oxycodone HCl (Roxicodone) 30 mg PRN Q4HRS PRN PO PAIN SEVERE Last administered on 07/06/18at 09:37; Start 06/30/18 at 23:45 Oxycodone HCl (OxyCONTIN) 20 mg Q12HR PO Last administered on 07/06/18at 09:04 ; Start 07/01/18 at 09:00 Acetaminophen (Tylenol) 650 mg PRN Q6HRS PRN PO FEVER Last administered on at 12:34; Start 07/01/18 at 04:15; Stop 07/01/18 at 13:59; Status DC Vancomycin HCl 1 gm/Sodium Chloride 250 ml @ 250 mls/hr 1X ONCE IV ; Start at 10:30; Stop 07/01/18 at 11:29; Status UNV Ceftriaxone Sodium 1 gm/ Dextrose 50 ml @ 100 mls/hr Q12H IV ; Start 07/01/18 at 10:30; Status UNV Ceftriaxone Sodium (Rocephin) 1 gm Q12H IVP ; Start 07/01/18 at 10:45; Stop at 10:45; Status DC Vancomycin HCl (Vanco Per Pharmacy) 1 each PRN DAILY PRN MC SEE COMMENTS; Start 07/01/18 at 10:45; Stop 07/01/18 at 10:45; Status DC Vancomycin HCl 2 gm/Sodium Chloride 500 ml @ 250 mls/hr 1X ONCE IV Last administered on 07/01/18at 11:05; Start 07/01/18 at 11:00; Stop 07/01/18 at 12 :59; Status DC Meropenem 500 mg/ Sodium Chloride 50 ml @ 100 mls/hr Q8HRS IV Last administered on 07/05/18at 06:00; Start 07/01/18 at 11:00; Stop 07/05/18 at 13 :20; Status DC Acetaminophen (Tylenol) 1,000 mg PRN Q6HRS PRN PO MILD PAIN / TEMP Last administered on 07/01/18at 21:57; Start 07/01/18 at 13:30 Ascorbic Acid (Vitamin C) 500 mg BID PO Last administered on 07/06/18at 09:01; Start 07/01/18 at 21:00 Baclofen (Lioresal) 10 mg PRN TID PRN PO MUSCLE SPASMS Last administered on at 06:05; Start 07/01/18 at 13:30 Bisacodyl (Dulcolax Supp) 10 mg PRN DAILY PRN RC CONSTIPATION; Start 07/01/18 at 13:30; Stop 07/05/18 at 12:01; Status DC Cetirizine HCl (ZyrTEC) 10 mg DAILY PO Last administered on 07/06/18at 09:05; Start 07/01/18 at 14:01 Citalopram Hydrobromide (CeleXA) 10 mg QHS PO Last administered on 07/05/18at 21:14; Start 07/01/18 at 21:00 Clotrimazole (Lotrimin) 1 lisa PRN BID PRN TP RASH; Start 07/01/18 at 13:30 Cyanocobalamin (Vitamin B-12) 1,000 mcg QMONTH IM Last administered on at 16:10; Start 07/01/18 at 15:00 Lactulose (Lactulose) 10 gm PRN BID PRN PO CONSTIPATION Last administered on at 16:44; Start 07/01/18 at 13:30; Stop 07/05/18 at 19:15; Status DC Multivitamins (Thera M Plus) 1 tab QHS PO Last administered on 07/05/18at 21:14 ; Start 07/01/18 at 21:00 Sodium Monofluorophosphate (Fleet Adult) 133 ml 1X PRN PRN RC CONSTIPATION; Start 07/01/18 at 13:30 Nortriptyline HCl (Pamelor) 25 mg QHS PO Last administered on 07/05/18 21:14 ; Start 07/01/18 at 21:00 Senna/Docusate Sodium (Senna Plus) 2 tab BID PO Last administered on 09:04; Start 07/01/18 at 21:00 Silver Sulfadiazine (Silvadene) 1 lisa DAILY TP ; Start 07/01/18 at 15:00 Zinc Sulfate (Orazinc) 220 mg QHS PO Last administered on 07/05/18at 21:14; Start 07/01/18 at 21:00 Non-Formulary Medication (Amino Acids/ Protein Hydrolys (Prosource No Carb Liquid Pkt)) 30 ml BID PO ; Start 07/01/18 at 21:00; Status UNV Multivitamins (Thera M Plus) 1 tab DAILY PO ; Start 07/01/18 at 15:00; Status Cancel Buspirone HCl (Buspar) 7.5 mg TID PO Last administered on 07/06/18 09:00; Start 07/01/18 at 15:00 Hydrocortisone (Cortaid) 1 lisa PRN TID PRN TP ITCHING; Start 07/01/18 at 15:00 Polysaccharide Iron Complex (Niferex 150) 150 mg DAILY PO Last administered on 07/06/18 09:05; Start 07/01/18 at 15:00 Lactobacillus Rhamnosus (Culturelle) 1 cap BID PO Last administered on 09:00; Start 07/01/18 at 21:00 Pantoprazole Sodium (Protonix) 40 mg DAILYAC PO Last administered on 09:04; Start 07/01/18 at 16:30 Artificial Tears (Artificial Tears) 1 drop PRN Q2HRS PRN OU DRY EYE; Start at 15:00; Status Cancel Saliva Substitute (Biotene Moisturizing Mouth) 2 spray PRN Q2HRS PRN PO DRY MOUTH; Start 07/01/18 at 15:00; Status Cancel Enoxaparin Sodium (Lovenox 40mg Syringe) 40 mg BID SQ Last administered on 09:06; Start 07/01/18 at 15:00 Sodium Chloride 1,000 ml @ 100 mls/hr Q10H IV Last administered on 07/03/18at 03:45; Start 07/01/18 at 13:45; Stop 07/03/18 at 08:18; Status DC Artificial Tears (Artificial Tears) 1 drop PRN Q2HRS PRN OU DRY EYE Last administered on 07/03/18at 16:44; Start 07/01/18 at 15:15 Saliva Substitute (Biotene Moisturizing Mouth) 2 spray PRN Q2HRS PRN PO DRY MOUTH; Start 07/01/18 at 15:30 Nystatin (Nystop) 1 lisa BID TP Last administered on 07/04/18at 21:00; Start at 22:00 Potassium Chloride (Klor-Con) 40 meq 1X ONCE PO Last administered on at 08:45; Start 07/02/18 at 07:30; Stop 07/02/18 at 07:31; Status DC Potassium Chloride (Klor-Con) 40 meq 1X ONCE PO Last administered on at 09:24; Start 07/03/18 at 08:30; Stop 07/03/18 at 08:31; Status DC Potassium Chloride (Klor-Con) 40 meq DAILYWBKFT PO Last administered on at 08:59; Start 07/04/18 at 08:00 Mupirocin (Bactroban) 1 lisa BID TP Last administered on 07/06/18at 09:00; Start 07/03/18 at 11:00 Alteplase, Recombinant (Cathflo) 2 mg 1X ONCE INT CAT Last administered on at 12:42; Start 07/04/18 at 12:30; Stop 07/04/18 at 12:31; Status DC Senna/Docusate Sodium (Senna Plus) 1 tab BID PO ; Start 07/05/18 at 21:00; Status UNV Docusate Sodium (Colace) 100 mg BID PO Last administered on 07/06/18at 09:05; Start 07/05/18 at 12:30 Magnesium Hydroxide (Milk Of Magnesia) 2,400 mg PRN Q12HR PRN PO CONSTIPATION, 1ST CHOICE Last administered on 07/06/18at 04:03; Start 07/05/18 at 12:00 Lactulose (Lactulose) 20 gm PRN Q12HR PRN PO CONSTIPATION, 2ND CHOICE; Start 07/05/18 at 12:00 Bisacodyl (Dulcolax Supp) 10 mg PRN DAILY PRN MS CONSTIPATION; Start 07/05/18 at 12:00 Cefepime HCl 2 gm/ Dextrose 100 ml @ 200 mls/hr Q8HRS IV Last administered on 07/06/18at 06:14; Start 07/05/18 at 14:00 Magnesium Citrate (Citroma) 296 ml PRN 1X PRN PO CONSTIPATION; Start 07/06/18 at 10:45 Diphenhydramine HCl (Benadryl) 25 mg PRN Q6HRS PRN PO ITCHING; Start 07/06/18 at 10:45 Active Scripts Active Reported Silvadene (Silver Sulfadiazine) 20 Gm Cream..g. 1 Lisa TP DAILY Lotrimin Af (Clotrimazole) 12 Gm Cream..g. 1 Lisa TP PRN BID PRN Hydrocortisone (Hydrocortisone Acetate) 28 Gm Oint...g. 28 Gm TP PRN TID PRN Cyanocobalamin Injection (Cyanocobalamin (Vitamin B-12)) 1,000 Mcg/1 Ml Vial 1 Ml IM QMONTH Visine Tears Drops (Peg 400/Hypromellose/Glycerin) 15 Ml Drops 15 Ml OP PRN Q2HR PRN Lactulose 20 Gm/30 Ml Solution 10 Gm PO PRN BID PRN Fleet Enema (Na Phos,M-B/Na Phos,Di-Ba) 133 Ml Enema 133 Ml RC PRN PRN Bisacodyl 10 Mg Supp.rect 10 Mg RC PRN DAILY PRN Biotene (Saliva Substitution Combo No.9) 1,000 Ml Mouthwash 1,000 Ml MM PRN Q2HR PRN Baclofen 10 Mg Tablet 1 Tab PO PRN TID PRN Acetaminophen 500 Mg Tablet 2 Tab PO PRN Q6HRS PRN Zinc Sulfate 220 Mg Capsule 220 Mg PO QHS Thera M Plus Tablet (Multivits,Ca,Minerals/Iron/FA) 1 Each Tablet 1 Each PO QHS Nortriptyline Hcl 25 Mg Capsule 1 Cap PO QHS Citalopram Hbr (Citalopram Hydrobromide) 10 Mg Tablet 1 Tab PO QHS Buspirone Hcl 15 Mg Tablet 7.5 Tab PO TID Vitamin C (Ascorbic Acid) 500 Mg Tablet 500 Mg PO BID Senexon-S Tablet (Sennosides/Docusate Sodium) 1 Each Tablet 2 Each PO BID Prosource No Carb Liquid Pkt (Amino Acids/Protein Hydrolys) 30 Ml Liquid.pkt 30 Ml PO BID [place] Packet (Argin/Glut/Cahmb/Collag/Mv-Min) 1 Each Powd.pack 1 Each PO BID Culturelle (Lactobacillus Rhamnosus Gg) 1 Each Capsule 1 Each PO BID Poly-Iron 150 Forte Capsule (Iron Ps Cmplx/Vit B12/Fa) 1 Each Capsule 1 Each PO DAILY Protonix (Pantoprazole Sodium) 20 Mg Tablet.dr 40 Mg PO DAILY Cetirizine Hcl 10 Mg Tablet 1 Tab PO DAILY Roxicodone (Oxycodone Hcl) 30 Mg Tablet 30 Mg PO Q4HRS PRN Oxycontin (Oxycodone HCl) 20 Mg Tab.er.12h 20 Mg PO BID Vitals/I & O Vital Sign - Last 24 Hours 07/05/18 07/05/18 07/05/18 07/05/18 14:30 15:00 18:39 19:00 Temp 97.9 98.3 97.9 98.3 Pulse 89 108 Resp 18 17 B/P (MAP) 122/62 (82) 126/74 (91) Pulse Ox 95 94 O2 Delivery Room Air Room Air Room Air Room Air 07/05/18 07/05/18 07/05/18 07/06/18 20:00 21:15 23:55 00:55 Resp 20 18 20 Pulse Ox 95 95 91 O2 Delivery Room Air Room Air Room Air Room Air 07/06/18 07/06/18 07/06/18 07/06/18 00:55 03:00 03:59 07:45 Temp 98.5 98.5 Pulse 103 Resp 20 18 20 B/P (MAP) 121/76 (91) Pulse Ox 91 91 91 O2 Delivery Room Air Room Air Room Air Room Air 07/06/18 07/06/18 07/06/18 09:04 09:37 11:00 Temp 97.9 97.9 Pulse 93 Resp 18 18 18 B/P (MAP) 108/57 (74) Pulse Ox 91 91 95 O2 Delivery Room Air Room Air Room Air Intake and Output 07/05/18 07/05/18 07/06/18 15:00 23:00 07:00 Intake Total 240 ml Output Total 1425 ml Balance -1425 ml 240 ml REBECCA JAIME MD Jul 06, 2018 13:43
[2018-07-06 15:00] VITALS: BP 95/53
[2018-07-06 19:00] VITALS: BP 104/48
[2018-07-06] MEDS: NORTRIPTYLINE 25 MG CAPSULE PO SCH (21:10)
[2018-07-06] MEDS: BACLOFEN 10 MG TABLET. PO PRN (21:10)
[2018-07-06] MEDS: MULTIVITAMIN with MINERAL TABLET. PO SCH (21:10)
[2018-07-06] MEDS: CITALOPRAM 10 MG TABLET. PO SCH (21:10)
[2018-07-06] MEDS: ZINC SULFATE 220 MG CAPSULE. PO SCH (21:10)
[2018-07-06] MEDS: POLYVINYL ALCOHOL 1.4% OPHTH SOLUTION 15ML BOTTLE. OU PRN (21:11)
[2018-07-07 03:00] VITALS: BP_SYST 104; BP_SYST 113; BP_DIAS 48; BP_DIAS 62
[2018-07-07] MEDS: PANTOPRAZOLE 40 MG TABLET.DR. PO SCH (05:50)
[2018-07-07] MEDS: BACLOFEN 10 MG TABLET. PO PRN (05:51)
[2018-07-07] MEDS: CEFEPIME HCL 2 GM in IV DEXTROSE 5% 100ML 100 ML IV SCH (05:52)
[2018-07-07 06:12] LABS: BASO # 0.1 x10^3/uL (0.0-0.2); BASO % 1 % (0-3); EOS # 0.7 x10^3/uL (0.0-0.7); EOS % 8 % (0-3); HEMATOCRIT 34.3 % (36.0-47.0); HEMOGLOBIN 11.4 g/dL (12.0-15.5); LYMPH # 3.4 x10^3/uL (1.0-4.8); LYMPH % 37 % (24-48); MEAN CORPUSCULAR HEMOGLOBIN 27 pg (25-35); MEAN CORPUSCULAR HGB CONC 33 g/dL (31-37); MEAN CORPUSCULAR VOLUME 82 fL (79-100); MONO # 0.6 x10^3/uL (0.0-1.1); MONO % 7 % (0-9); NEUT # 4.3 x10^3uL (1.8-7.7); NEUT % 47 % (31-73); PLATELET COUNT 392 x10^3/uL (140-400); RED CELL DISTRIBUTION WIDTH 17.3 % (11.5-14.5); WHITE BLOOD COUNT 9.1 x10^3/uL (4.0-11.0)
[2018-07-07 06:19] LABS: CALCIUM 9.3 mg/dL (8.5-10.1); CREATININE 0.5 mg/dL (0.6-1.0); GFR 133.4; POTASSIUM 4.5 mmol/L (3.5-5.1)
[2018-07-07 07:00] VITALS: BP 114/50
[2018-07-07] MEDS: NYSTATIN TOPICAL POWDER 15GM BOTTLE. TP SCH ×2 (09:00→21:01)
[2018-07-07] MEDS: silver sulfADIAZINE 1% CREAM 25GM TUBE. TP SCH (09:00)
[2018-07-07] MEDS: MUPIROCIN 2 % TOPICAL CREAM 15GM TUBE. TP SCH ×2 (09:00→21:01)
[2018-07-07] MEDS: POTASSIUM CHLORIDE 20 MEQ TABLET.ER. PO SCH (09:25)
[2018-07-07] MEDS: ENOXAPARIN 40 MG/0.4 ML SYRINGE. SQ SCH ×2 (09:25→21:00)
[2018-07-07] MEDS: LACTOBACILLUS RHAMNOSUS GG 1 CAPSULE. PO SCH ×2 (09:26→20:58)
[2018-07-07] MEDS: SENNOSIDES/DOCUSATE 8.6/50MG TABLET. PO SCH ×2 (09:26→20:59)
[2018-07-07] MEDS: oxyCODONE ER 10 MG TAB.ER.12H PO SCH ×2 (09:26→20:58)
[2018-07-07] MEDS: DOCUSATE SODIUM 100 MG CAPSULE. PO SCH ×2 (09:26→20:59)
[2018-07-07] MEDS: busPIRone 5 MG TABLET. PO SCH ×3 (09:27→20:57)
[2018-07-07] MEDS: CETIRIZINE HCL 10 MG TABLET. PO SCH (09:27)
[2018-07-07] MEDS: IRON POLYSACCHARIDE COMPLEX 150 MG CAPSULE PO SCH (09:27)
[2018-07-07] MEDS: ASCORBIC ACID 500 MG TABLET PO SCH ×2 (09:27→20:58)
--- NOTE | 2018-07-07 10:20 | PDOC ---
Infectious Disease Note Subjective: Subjective pt says feels fine on cell phone No F/C NV/D ROS: ROS Negative except for above. Vital Signs: Vital Signs Vital Signs Date Time Temp Pulse Resp B/P (MAP) Pulse Ox O2 Delivery O2 Flow Rate FiO2 07/07/18 10:02 16 Room Air 07/07/18 07:00 98.1 97 114/50 (71) 93 98.1 Physical Exam: PHYSICAL EXAM GENERAL: Propped up in bed, alert, NAD HEENT: Oral cavity clear NECK: Supple. LUNGS: Clear. HEART: S1 and S2 regular. ABDOMEN: Obese, soft, SPC intact/clean EXTREMITIES: BLE 2+ edema. No cyanosis SKIN: Sacral decubitus, which is to the bone. 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 Right-sided tunneled PICC (over 4 months old per pt) clean Medications: Inpatient Meds: Current Medications Medications (Trade) Dose Ordered Sig/Ren Start Time Stop Time Status Last Admin Dose Admin Acetaminophen (Tylenol) 1,000 mg PRN Q6HRS PRN 07/01/18 13:30 07/01/18 21:57 1,000 MG Alteplase, Recombinant (Cathflo) 2 mg 1X ONCE 07/04/18 12:30 07/04/18 12:31 DC 07/04/18 12:42 2 MG Artificial Tears (Artificial Tears) 1 drop PRN Q2HRS PRN 07/01/18 15:15 07/06/18 21:11 1 DROP Ascorbic Acid (Vitamin C) 500 mg BID 07/01/18 21:00 07/07/18 09:27 500 MG Baclofen (Lioresal) 10 mg PRN TID PRN 07/01/18 13:30 07/07/18 05:51 10 MG Bisacodyl (Dulcolax Supp) 10 mg PRN DAILY PRN 07/05/18 12:00 Buspirone HCl (Buspar) 7.5 mg TID 07/01/18 15:00 07/07/18 09:27 7.5 MG Cefepime HCl 2 gm/ Dextrose 100 ml @ 200 mls/hr Q8HRS 07/05/18 14:00 07/07/18 05:52 200 MLS/HR Ceftriaxone Sodium 1 gm/ Dextrose 50 ml @ 100 mls/hr Q12H 07/01/18 10:30 UNV Ceftriaxone Sodium (Rocephin) 1 gm Q12H 07/01/18 10:45 07/01/18 10:45 DC Cetirizine HCl (ZyrTEC) 10 mg DAILY 07/01/18 14:01 07/07/18 09:27 10 MG Citalopram Hydrobromide (CeleXA) 10 mg QHS 07/01/18 21:00 07/06/18 21:10 10 MG Clotrimazole (Lotrimin) 1 rosy PRN BID PRN 07/01/18 13:30 Cyanocobalamin (Vitamin B-12) 1,000 mcg QMONTH 07/01/18 15:00 07/01/18 16:10 1,000 MCG Diphenhydramine HCl (Benadryl) 25 mg PRN Q6HRS PRN 07/06/18 10:45 Docusate Sodium (Colace) 100 mg BID 07/05/18 12:30 07/07/18 09:26 100 MG Enoxaparin Sodium (Lovenox 40mg Syringe) 40 mg BID 07/01/18 15:00 07/07/18 09:25 40 MG Hydrocortisone (Cortaid) 1 rosy PRN TID PRN 07/01/18 15:00 Hydromorphone HCl (Dilaudid) 0.5 mg PRN Q4HRS PRN 06/30/18 22:15 06/30/18 22:49 0.5 MG Lactobacillus Rhamnosus (Culturelle) 1 cap BID 07/01/18 21:00 07/07/18 09:26 1 CAP Lactulose (Lactulose) 20 gm PRN Q12HR PRN 07/05/18 12:00 Magnesium Hydroxide (Milk Of Magnesia) 2,400 mg PRN Q12HR PRN 07/05/18 12:00 07/06/18 04:03 2,400 MG Magnesium Citrate (Citroma) 296 ml PRN 1X PRN 07/06/18 10:45 Meropenem 500 mg/ Sodium Chloride 50 ml @ 100 mls/hr Q8HRS 07/01/18 11:00 07/05/18 13:20 DC 07/05/18 06:00 100 MLS/HR Multivitamins (Thera M Plus) 1 tab DAILY 07/01/18 15:00 Cancel Mupirocin (Bactroban) 1 rosy BID 07/03/18 11:00 07/06/18 21:12 1 ROSY Non-Formulary Medication (Amino Acids/ Protein Hydrolys (Prosource No Carb Liquid Pkt)) 30 ml BID 07/01/18 21:00 UNV Nortriptyline HCl (Pamelor) 25 mg QHS 07/01/18 21:00 07/06/18 21:10 25 MG Nystatin (Nystop) 1 rosy BID 07/01/18 22:00 07/06/18 21:12 1 ROSY Ondansetron HCl (Zofran) 4 mg PRN Q6HRS PRN 06/30/18 22:15 Oxycodone HCl (OxyCONTIN) 20 mg Q12HR 07/01/18 09:00 07/07/18 09:26 20 MG Oxycodone HCl (Roxicodone) 30 mg PRN Q4HRS PRN 06/30/18 23:45 07/07/18 10:02 30 MG Pantoprazole Sodium (Protonix) 40 mg DAILYAC 07/01/18 16:30 07/07/18 05:50 40 MG Polysaccharide Iron Complex (Niferex 150) 150 mg DAILY 07/01/18 15:00 07/07/18 09:27 150 MG Potassium Chloride (Klor-Con) 40 meq DAILYWBKFT 07/04/18 08:00 07/07/18 09:25 40 MEQ Saliva Substitute (Biotene Moisturizing Mouth) 2 spray PRN Q2HRS PRN 07/01/18 15:30 07/06/18 21:11 2 SPRAY Senna/Docusate Sodium (Senna Plus) 1 tab BID 07/05/18 21:00 UNV Silver Sulfadiazine (Silvadene) 1 rosy DAILY 07/01/18 15:00 Sodium Monofluorophosphate (Fleet Adult) 133 ml 1X PRN PRN 07/01/18 13:30 Sodium Chloride 1,000 ml @ 100 mls/hr Q10H 07/01/18 13:45 07/03/18 08:18 DC 07/03/18 03:45 100 MLS/HR Vancomycin HCl (Vanco Per Pharmacy) 1 each PRN DAILY PRN 07/01/18 10:45 07/01/18 10:45 DC Vancomycin HCl 1 gm/Sodium Chloride 250 ml @ 250 mls/hr 1X ONCE 07/01/18 10:30 07/01/18 11:29 UNV Vancomycin HCl 2 gm/Sodium Chloride 500 ml @ 250 mls/hr 1X ONCE 07/01/18 11:00 07/01/18 12:59 DC 07/01/18 11:05 250 MLS/HR Zinc Sulfate (Orazinc) 220 mg QHS 07/01/18 21:00 07/06/18 21:10 220 MG Labs: Lab Laboratory Tests Test 07/07/18 05:50 White Blood Count 9.1 x10^3/uL (4.0-11.0) Red Blood Count 4.20 x10^6/uL (3.50-5.40) Hemoglobin 11.4 g/dL (12.0-15.5) Hematocrit 34.3 % (36.0-47.0) Mean Corpuscular Volume 82 fL (79-100) Mean Corpuscular Hemoglobin 27 pg (25-35) Mean Corpuscular Hemoglobin Concent 33 g/dL (31-37) Red Cell Distribution Width 17.3 % (11.5-14.5) Platelet Count 392 x10^3/uL (140-400) Neutrophils (%) (Auto) 47 % (31-73) Lymphocytes (%) (Auto) 37 % (24-48) Monocytes (%) (Auto) 7 % (0-9) Eosinophils (%) (Auto) 8 % (0-3) Basophils (%) (Auto) 1 % (0-3) Neutrophils # (Auto) 4.3 x10^3uL (1.8-7.7) Lymphocytes # (Auto) 3.4 x10^3/uL (1.0-4.8) Monocytes # (Auto) 0.6 x10^3/uL (0.0-1.1) Eosinophils # (Auto) 0.7 x10^3/uL (0.0-0.7) Basophils # (Auto) 0.1 x10^3/uL (0.0-0.2) Sodium Level 139 mmol/L (136-145) Potassium Level 4.5 mmol/L (3.5-5.1) Chloride Level 102 mmol/L (98-107) Carbon Dioxide Level 28 mmol/L (21-32) Anion Gap 9 (6-14) Blood Urea Nitrogen 16 mg/dL (7-20) Creatinine 0.5 mg/dL (0.6-1.0) Estimated GFR (Cockcroft-Gault) 133.4 Glucose Level 112 mg/dL (70-99) Calcium Level 9.3 mg/dL (8.5-10.1) Micro RUN DATE: 07/04/18 PAGE 1 RUN TIME: 8987 [facility] [address] [place] [address] Rashi Forbes M.D., Master Control Supervisor PATIENT: JOHN HUNTER ACCT: [id number] LOC: [address] [place] [address] U : [id number] AGE/SX: 47/F ROOM: [facility] REG : 06/30/[address]: GARETT BERTRAND MD : 1970 BED: 1 DIS : STATUS: ADM IN TLOC: SPEC #: [id number] TAYLOR: 06/30/18 STATUS: COMP REQ #: [id number] RECD: 07/01/18-1015 [facility] DR: FRANCISCO JAVIER VALENCIA Jr. DO SOURCE: BLOOD ENTR: 07/01/18-[address] [facility] [address]: SHAWN BELL SPDESC: GARETT BERTRAND MD ORDERED: BLD CULT - LC Procedure Result BLOOD CULTURE LC Final Final report BLD CULT RESULT 1 Final Comment Pseudomonas aeruginosa ANTIMICROBIAL SUSCEPTIBILITY Final Comment S = Susceptible; I = Intermediate; R = Resistant P = Positive; N = Negative MICS are expressed in micrograms per mL Antibiotic RSLT#1 RSLT#2 RSLT#3 RSLT#4 Amikacin S<=2 Cefepime S =2 Ceftazidime S =4 Ciprofloxacin S<=0.25 Gentamicin S<=1 Imipenem I =8 Levofloxacin S =0.5 Meropenem S =4 Piperacillin S =8 Ticarcillin S =32 Tobramycin S<=1 Performed at: DA - [facility] [address], [place], [place] [id number] [employer]: MARY Kim MD, Phone: [phone] Objective: Assessment: G neg sepsis (POA) PSAE ? 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
[2018-07-07 11:47] VITALS: BP 119/71
[2018-07-07] MEDS: MEROPENEM 500 MG in IV NORMAL SALINE 50ML 50 ML IV SCH ×3 (13:00→23:44)
--- NOTE | 2018-07-07 13:54 | PDOC ---
PROGRESS NOTES Chief Complaint Chief Complaint Complicated UTI proteus multidrug resistance Indwelling suprapubic catheter since transverse myelitis 3 years ago GNR bacteremia pseudomonas GNR sepsis with no organ dysfunction Fevers resolved Bedbound Sacral decubitus secondary to immobility stage IV hypokalemia constipation chronic plan: fu with ID,switch back to meropenum fu with uro, suprapubic cath changed add stool softner remove old picc line ,new PICC line today will dc back to SNF, hope tmr History of Present Illness History of Present Illness SHe has no complaints, some mild redness or discharge around the supra pubic cath - started bactroban thursday Garcia has been changed this admission-they change it every monthly She is bed bound from transverse myelitis x 3 yrs and has stage 5 sacral She has very good attitude and outlook in life despite her medical condition Vitals Vitals Vital Signs Date Time Temp Pulse Resp B/P (MAP) Pulse Ox O2 Delivery O2 Flow Rate FiO2 07/07/18 11:47 97.7 96 18 119/71 (87) 93 Room Air 97.7 Physical Exam Physical Exam GENERAL: Propped up in bed, alert, NAD HEENT: Oral cavity clear NECK: Supple. LUNGS: Clear. HEART: S1 and S2 regular. ABDOMEN: Obese, soft, SPC intact/clean EXTREMITIES: BLE 2+ edema. No cyanosis SKIN: Sacral decubitus, which is to the bone. VALUE ANALYST: Alert and oriented x 3. Paraplegic. Right-sided tunneled PICC (over 4 months old per pt) clean General: Oriented X3, Cooperative Heart: Regular rate, Normal S1, Normal S2 Lungs: Clear Abdomen: Normal bowel sounds, Other (indwelling suprapubic catheter with some redness or discharge around the area) Extremities: No clubbing, No cyanosis Labs LABS Laboratory Tests Test 07/07/18 05:50 White Blood Count 9.1 x10^3/uL (4.0-11.0) Red Blood Count 4.20 x10^6/uL (3.50-5.40) Hemoglobin 11.4 g/dL (12.0-15.5) Hematocrit 34.3 % (36.0-47.0) Mean Corpuscular Volume 82 fL (79-100) Mean Corpuscular Hemoglobin 27 pg (25-35) Mean Corpuscular Hemoglobin Concent 33 g/dL (31-37) Red Cell Distribution Width 17.3 % (11.5-14.5) Platelet Count 392 x10^3/uL (140-400) Neutrophils (%) (Auto) 47 % (31-73) Lymphocytes (%) (Auto) 37 % (24-48) Monocytes (%) (Auto) 7 % (0-9) Eosinophils (%) (Auto) 8 % (0-3) Basophils (%) (Auto) 1 % (0-3) Neutrophils # (Auto) 4.3 x10^3uL (1.8-7.7) Lymphocytes # (Auto) 3.4 x10^3/uL (1.0-4.8) Monocytes # (Auto) 0.6 x10^3/uL (0.0-1.1) Eosinophils # (Auto) 0.7 x10^3/uL (0.0-0.7) Basophils # (Auto) 0.1 x10^3/uL (0.0-0.2) Sodium Level 139 mmol/L (136-145) Potassium Level 4.5 mmol/L (3.5-5.1) Chloride Level 102 mmol/L (98-107) Carbon Dioxide Level 28 mmol/L (21-32) Anion Gap 9 (6-14) Blood Urea Nitrogen 16 mg/dL (7-20) Creatinine 0.5 mg/dL (0.6-1.0) Estimated GFR (Cockcroft-Gault) 133.4 Glucose Level 112 mg/dL (70-99) Calcium Level 9.3 mg/dL (8.5-10.1) Assessment and Plan Assessmemt and Plan Problems Medical Problems: (1) Complication, suprapubic catheter obstruction Status: Acute (2) Urinary tract infection associated with catheterization of urinary tract Status: Acute Comment Review of Relevant I have reviewed the following items roque (where applicable) has been applied. Labs Laboratory Tests Test 07/06/18 06:20 07/07/18 05:50 White Blood Count 9.6 x10^3/uL (4.0-11.0) 9.1 x10^3/uL (4.0-11.0) Red Blood Count 3.84 x10^6/uL (3.50-5.40) 4.20 x10^6/uL (3.50-5.40) Hemoglobin 10.7 g/dL (12.0-15.5) 11.4 g/dL (12.0-15.5) Hematocrit 31.6 % (36.0-47.0) 34.3 % (36.0-47.0) Mean Corpuscular Volume 82 fL (79-100) 82 fL (79-100) Mean Corpuscular Hemoglobin 28 pg (25-35) 27 pg (25-35) Mean Corpuscular Hemoglobin Concent 34 g/dL (31-37) 33 g/dL (31-37) Red Cell Distribution Width 16.6 % (11.5-14.5) 17.3 % (11.5-14.5) Platelet Count 343 x10^3/uL (140-400) 392 x10^3/uL (140-400) Neutrophils (%) (Auto) 48 % (31-73) 47 % (31-73) Lymphocytes (%) (Auto) 38 % (24-48) 37 % (24-48) Monocytes (%) (Auto) 7 % (0-9) 7 % (0-9) Eosinophils (%) (Auto) 6 % (0-3) 8 % (0-3) Basophils (%) (Auto) 1 % (0-3) 1 % (0-3) Neutrophils # (Auto) 4.6 x10^3uL (1.8-7.7) 4.3 x10^3uL (1.8-7.7) Lymphocytes # (Auto) 3.6 x10^3/uL (1.0-4.8) 3.4 x10^3/uL (1.0-4.8) Monocytes # (Auto) 0.7 x10^3/uL (0.0-1.1) 0.6 x10^3/uL (0.0-1.1) Eosinophils # (Auto) 0.6 x10^3/uL (0.0-0.7) 0.7 x10^3/uL (0.0-0.7) Basophils # (Auto) 0.1 x10^3/uL (0.0-0.2) 0.1 x10^3/uL (0.0-0.2) Segmented Neutrophils % 41 % (35-66) Band Neutrophils % 6 % (0-9) Lymphocytes % 36 % (24-48) Atypical Lymphocytes % (Manual) 2 % (0-0) Monocytes % 7 % (0-10) Eosinophils % 6 % (0-5) Basophils % 2 % (0-3) Toxic Granulation Slight Toxic Vacuolation Slight Platelet Estimate Adequate (ADEQUATE) Anisocytosis Slight Sodium Level 140 mmol/L (136-145) 139 mmol/L (136-145) Potassium Level 4.0 mmol/L (3.5-5.1) 4.5 mmol/L (3.5-5.1) Chloride Level 103 mmol/L (98-107) 102 mmol/L (98-107) Carbon Dioxide Level 31 mmol/L (21-32) 28 mmol/L (21-32) Anion Gap 6 (6-14) 9 (6-14) Blood Urea Nitrogen 12 mg/dL (7-20) 16 mg/dL (7-20) Creatinine 0.5 mg/dL (0.6-1.0) 0.5 mg/dL (0.6-1.0) Estimated GFR (Cockcroft-Gault) 133.4 133.4 Glucose Level 96 mg/dL (70-99) 112 mg/dL (70-99) Calcium Level 8.8 mg/dL (8.5-10.1) 9.3 mg/dL (8.5-10.1) Laboratory Tests Test 07/07/18 05:50 White Blood Count 9.1 x10^3/uL (4.0-11.0) Red Blood Count 4.20 x10^6/uL (3.50-5.40) Hemoglobin 11.4 g/dL (12.0-15.5) Hematocrit 34.3 % (36.0-47.0) Mean Corpuscular Volume 82 fL (79-100) Mean Corpuscular Hemoglobin 27 pg (25-35) Mean Corpuscular Hemoglobin Concent 33 g/dL (31-37) Red Cell Distribution Width 17.3 % (11.5-14.5) Platelet Count 392 x10^3/uL (140-400) Neutrophils (%) (Auto) 47 % (31-73) Lymphocytes (%) (Auto) 37 % (24-48) Monocytes (%) (Auto) 7 % (0-9) Eosinophils (%) (Auto) 8 % (0-3) Basophils (%) (Auto) 1 % (0-3) Neutrophils # (Auto) 4.3 x10^3uL (1.8-7.7) Lymphocytes # (Auto) 3.4 x10^3/uL (1.0-4.8) Monocytes # (Auto) 0.6 x10^3/uL (0.0-1.1) Eosinophils # (Auto) 0.7 x10^3/uL (0.0-0.7) Basophils # (Auto) 0.1 x10^3/uL (0.0-0.2) Sodium Level 139 mmol/L (136-145) Potassium Level 4.5 mmol/L (3.5-5.1) Chloride Level 102 mmol/L (98-107) Carbon Dioxide Level 28 mmol/L (21-32) Anion Gap 9 (6-14) Blood Urea Nitrogen 16 mg/dL (7-20) Creatinine 0.5 mg/dL (0.6-1.0) Estimated GFR (Cockcroft-Gault) 133.4 Glucose Level 112 mg/dL (70-99) Calcium Level 9.3 mg/dL (8.5-10.1) Microbiology 07/04/18 Blood Culture - Preliminary, Resulted NO GROWTH AFTER 3 DAYS 06/30/18 Urine Culture - Final, Complete 06/30/18 Urine Culture Result 1 (JESIKA) - Final, Complete 06/30/18 Antimicrobic Susceptibility - Final, Complete 06/30/18 Aerobic Culture - Preliminary, Resulted 06/30/18 Aerobic Culture Result 1 (JESIKA) - Preliminary, Resulted 06/30/18 Aerobic Culture Result 2 (JESIKA) - Preliminary, Resulted 06/30/18 Antimicrobic Susceptibility - Preliminary, Resulted 06/30/18 Gram Stain - Final, Resulted 06/30/18 Gram Stain Result 1 (JESIKA) - Final, Resulted 06/30/18 Gram Stain Result 2 (JESIKA) - Final, Resulted 06/30/18 Gram Stain Result 3 (JESIKA) - Final, Resulted Medications Current Medications Sodium Chloride 1,000 ml @ 1,000 mls/hr Q1H IV Last administered on at 18:39; Start 06/30/18 at 18:19; Stop 06/30/18 at 19:18; Status DC Hydromorphone HCl (Dilaudid) 2 mg 1X ONCE IV Last administered on 06/30/18at 18:39; Start 06/30/18 at 18:30; Stop 06/30/18 at 18:31; Status DC Ondansetron HCl (Zofran) 4 mg 1X ONCE IV Last administered on 06/30/18at 18:39 ; Start 06/30/18 at 18:30; Stop 06/30/18 at 18:31; Status DC Alteplase, Recombinant (Cathflo) 2 mg 1X ONCE INT CAT Last administered on at 18:40; Start 06/30/18 at 18:45; Stop 06/30/18 at 18:46; Status DC Ceftriaxone Sodium 50 ml @ 100 mls/hr 1X ONCE IV Last administered on at 20:07; Start 06/30/18 at 20:15; Stop 06/30/18 at 20:44; Status DC Acetaminophen (Tylenol) 1,000 mg 1X ONCE PO Last administered on 06/30/18at 20 :28; Start 06/30/18 at 20:30; Stop 06/30/18 at 20:31; Status DC Hydromorphone HCl (Dilaudid) 0.5 mg PRN Q4HRS PRN IV PAIN Last administered on 06/30/18at 22:49; Start 06/30/18 at 22:15 Ondansetron HCl (Zofran) 4 mg PRN Q6HRS PRN IV NAUSEA/VOMITING; Start at 22:15 Oxycodone HCl (Roxicodone) 30 mg PRN Q4HRS PRN PO PAIN SEVERE Last administered on 07/07/18at 10:02; Start 06/30/18 at 23:45 Oxycodone HCl (OxyCONTIN) 20 mg Q12HR PO Last administered on 07/07/18at 09:26 ; Start 07/01/18 at 09:00 Acetaminophen (Tylenol) 650 mg PRN Q6HRS PRN PO FEVER Last administered on at 12:34; Start 07/01/18 at 04:15; Stop 07/01/18 at 13:59; Status DC Vancomycin HCl 1 gm/Sodium Chloride 250 ml @ 250 mls/hr 1X ONCE IV ; Start at 10:30; Stop 07/01/18 at 11:29; Status UNV Ceftriaxone Sodium 1 gm/ Dextrose 50 ml @ 100 mls/hr Q12H IV ; Start 07/01/18 at 10:30; Status UNV Ceftriaxone Sodium (Rocephin) 1 gm Q12H IVP ; Start 07/01/18 at 10:45; Stop at 10:45; Status DC Vancomycin HCl (Vanco Per Pharmacy) 1 each PRN DAILY PRN MC SEE COMMENTS; Start 07/01/18 at 10:45; Stop 07/01/18 at 10:45; Status DC Vancomycin HCl 2 gm/Sodium Chloride 500 ml @ 250 mls/hr 1X ONCE IV Last administered on 07/01/18at 11:05; Start 07/01/18 at 11:00; Stop 07/01/18 at 12 :59; Status DC Meropenem 500 mg/ Sodium Chloride 50 ml @ 100 mls/hr Q8HRS IV Last administered on 07/05/18at 06:00; Start 07/01/18 at 11:00; Stop 07/05/18 at 13 :20; Status DC Acetaminophen (Tylenol) 1,000 mg PRN Q6HRS PRN PO MILD PAIN / TEMP Last administered on 07/01/18at 21:57; Start 07/01/18 at 13:30 Ascorbic Acid (Vitamin C) 500 mg BID PO Last administered on 07/07/18at 09:27; Start 07/01/18 at 21:00 Baclofen (Lioresal) 10 mg PRN TID PRN PO MUSCLE SPASMS Last administered on at 05:51; Start 07/01/18 at 13:30 Bisacodyl (Dulcolax Supp) 10 mg PRN DAILY PRN RC CONSTIPATION; Start 07/01/18 at 13:30; Stop 07/05/18 at 12:01; Status DC Cetirizine HCl (ZyrTEC) 10 mg DAILY PO Last administered on 07/07/18at 09:27; Start 07/01/18 at 14:01 Citalopram Hydrobromide (CeleXA) 10 mg QHS PO Last administered on 07/06/18at 21:10; Start 07/01/18 at 21:00 Clotrimazole (Lotrimin) 1 lisa PRN BID PRN TP RASH; Start 07/01/18 at 13:30 Cyanocobalamin (Vitamin B-12) 1,000 mcg QMONTH IM Last administered on at 16:10; Start 07/01/18 at 15:00 Lactulose (Lactulose) 10 gm PRN BID PRN PO CONSTIPATION Last administered on at 16:44; Start 07/01/18 at 13:30; Stop 07/05/18 at 19:15; Status DC Multivitamins (Thera M Plus) 1 tab QHS PO Last administered on 07/06/18 21:10 ; Start 07/01/18 at 21:00 Sodium Monofluorophosphate (Fleet Adult) 133 ml 1X PRN PRN RC CONSTIPATION; Start 07/01/18 at 13:30 Nortriptyline HCl (Pamelor) 25 mg QHS PO Last administered on 07/06/18at 21:10 ; Start 07/01/18 at 21:00 Senna/Docusate Sodium (Senna Plus) 2 tab BID PO Last administered on at 09:26; Start 07/01/18 at 21:00 Silver Sulfadiazine (Silvadene) 1 lisa DAILY TP ; Start 07/01/18 at 15:00 Zinc Sulfate (Orazinc) 220 mg QHS PO Last administered on 07/06/18at 21:10; Start 07/01/18 at 21:00 Non-Formulary Medication (Amino Acids/ Protein Hydrolys (Prosource No Carb Liquid Pkt)) 30 ml BID PO ; Start 07/01/18 at 21:00; Status UNV Multivitamins (Thera M Plus) 1 tab DAILY PO ; Start 07/01/18 at 15:00; Status Cancel Buspirone HCl (Buspar) 7.5 mg TID PO Last administered on 07/07/18at 09:27; Start 07/01/18 at 15:00 Hydrocortisone (Cortaid) 1 lisa PRN TID PRN TP ITCHING; Start 07/01/18 at 15:00 Polysaccharide Iron Complex (Niferex 150) 150 mg DAILY PO Last administered on 07/07/18at 09:27; Start 07/01/18 at 15:00 Lactobacillus Rhamnosus (Culturelle) 1 cap BID PO Last administered on 09:26; Start 07/01/18 at 21:00 Pantoprazole Sodium (Protonix) 40 mg DAILYAC PO Last administered on at 05:50; Start 07/01/18 at 16:30 Artificial Tears (Artificial Tears) 1 drop PRN Q2HRS PRN OU DRY EYE; Start at 15:00; Status Cancel Saliva Substitute (Biotene Moisturizing Mouth) 2 spray PRN Q2HRS PRN PO DRY MOUTH; Start 07/01/18 at 15:00; Status Cancel Enoxaparin Sodium (Lovenox 40mg Syringe) 40 mg BID SQ Last administered on at 09:25; Start 07/01/18 at 15:00 Sodium Chloride 1,000 ml @ 100 mls/hr Q10H IV Last administered on 07/03/18at 03:45; Start 07/01/18 at 13:45; Stop 07/03/18 at 08:18; Status DC Artificial Tears (Artificial Tears) 1 drop PRN Q2HRS PRN OU DRY EYE Last administered on 07/06/18 21:11; Start 07/01/18 at 15:15 Saliva Substitute (Biotene Moisturizing Mouth) 2 spray PRN Q2HRS PRN PO DRY MOUTH Last administered on 07/06/18 21:11; Start 07/01/18 at 15:30 Nystatin (Nystop) 1 lisa BID TP Last administered on 07/06/18at 21:12; Start at 22:00 Potassium Chloride (Klor-Con) 40 meq 1X ONCE PO Last administered on at 08:45; Start 07/02/18 at 07:30; Stop 07/02/18 at 07:31; Status DC Potassium Chloride (Klor-Con) 40 meq 1X ONCE PO Last administered on at 09:24; Start 07/03/18 at 08:30; Stop 07/03/18 at 08:31; Status DC Potassium Chloride (Klor-Con) 40 meq DAILYWBKFT PO Last administered on at 09:25; Start 07/04/18 at 08:00 Mupirocin (Bactroban) 1 lisa BID TP Last administered on 07/06/18at 21:12; Start 07/03/18 at 11:00 Alteplase, Recombinant (Cathflo) 2 mg 1X ONCE INT CAT Last administered on at 12:42; Start 07/04/18 at 12:30; Stop 07/04/18 at 12:31; Status DC Senna/Docusate Sodium (Senna Plus) 1 tab BID PO ; Start 07/05/18 at 21:00; Status UNV Docusate Sodium (Colace) 100 mg BID PO Last administered on 07/07/18at 09:26; Start 07/05/18 at 12:30 Magnesium Hydroxide (Milk Of Magnesia) 2,400 mg PRN Q12HR PRN PO CONSTIPATION, 1ST CHOICE Last administered on 07/06/18at 04:03; Start 07/05/18 at 12:00 Lactulose (Lactulose) 20 gm PRN Q12HR PRN PO CONSTIPATION, 2ND CHOICE; Start 07/05/18 at 12:00 Bisacodyl (Dulcolax Supp) 10 mg PRN DAILY PRN MN CONSTIPATION; Start 07/05/18 at 12:00 Cefepime HCl 2 gm/ Dextrose 100 ml @ 200 mls/hr Q8HRS IV Last administered on 07/07/18at 05:52; Start 07/05/18 at 14:00; Stop 07/07/18 at 12:44; Status DC Magnesium Citrate (Citroma) 296 ml PRN 1X PRN PO CONSTIPATION; Start 07/06/18 at 10:45 Diphenhydramine HCl (Benadryl) 25 mg PRN Q6HRS PRN PO ITCHING; Start 07/06/18 at 10:45 Meropenem 500 mg/ Sodium Chloride 50 ml @ 100 mls/hr Q6HRS IV ; Start at 13:00 Active Scripts Active Reported Silvadene (Silver Sulfadiazine) 20 Gm Cream..g. 1 Lisa TP DAILY Lotrimin Af (Clotrimazole) 12 Gm Cream..g. 1 Lisa TP PRN BID PRN Hydrocortisone (Hydrocortisone Acetate) 28 Gm Oint...g. 28 Gm TP PRN TID PRN Cyanocobalamin Injection (Cyanocobalamin (Vitamin B-12)) 1,000 Mcg/1 Ml Vial 1 Ml IM QMONTH Visine Tears Drops (Peg 400/Hypromellose/Glycerin) 15 Ml Drops 15 Ml OP PRN Q2HR PRN Lactulose 20 Gm/30 Ml Solution 10 Gm PO PRN BID PRN Fleet Enema (Na Phos,M-B/Na Phos,Di-Ba) 133 Ml Enema 133 Ml RC PRN PRN Bisacodyl 10 Mg Supp.rect 10 Mg RC PRN DAILY PRN Biotene (Saliva Substitution Combo No.9) 1,000 Ml Mouthwash 1,000 Ml MM PRN Q2HR PRN Baclofen 10 Mg Tablet 1 Tab PO PRN TID PRN Acetaminophen 500 Mg Tablet 2 Tab PO PRN Q6HRS PRN Zinc Sulfate 220 Mg Capsule 220 Mg PO QHS Thera M Plus Tablet (Multivits,Ca,Minerals/Iron/FA) 1 Each Tablet 1 Each PO QHS Nortriptyline Hcl 25 Mg Capsule 1 Cap PO QHS Citalopram Hbr (Citalopram Hydrobromide) 10 Mg Tablet 1 Tab PO QHS Buspirone Hcl 15 Mg Tablet 7.5 Tab PO TID Vitamin C (Ascorbic Acid) 500 Mg Tablet 500 Mg PO BID Senexon-S Tablet (Sennosides/Docusate Sodium) 1 Each Tablet 2 Each PO BID Prosource No Carb Liquid Pkt (Amino Acids/Protein Hydrolys) 30 Ml Liquid.pkt 30 Ml PO BID Zion Packet (Argin/Glut/Cahmb/Collag/Mv-Min) 1 Each Powd.pack 1 Each PO BID Culturelle (Lactobacillus Rhamnosus Gg) 1 Each Capsule 1 Each PO BID Poly-Iron 150 Forte Capsule (Iron Ps Cmplx/Vit B12/Fa) 1 Each Capsule 1 Each PO DAILY Protonix (Pantoprazole Sodium) 20 Mg Tablet.dr 40 Mg PO DAILY Cetirizine Hcl 10 Mg Tablet 1 Tab PO DAILY Roxicodone (Oxycodone Hcl) 30 Mg Tablet 30 Mg PO Q4HRS PRN Oxycontin (Oxycodone HCl) 20 Mg Tab.er.12h 20 Mg PO BID Vitals/I & O Vital Sign - Last 24 Hours 07/06/18 07/06/18 07/06/18 07/06/18 14:07 15:00 15:10 19:00 Temp 97.9 98.0 97.9 98.0 Pulse 82 85 Resp 16 18 18 B/P (MAP) 95/53 (67) 104/48 (66) Pulse Ox 95 95 95 90 O2 Delivery Room Air Room Air Room Air 07/06/18 07/06/18 07/06/18 07/07/18 20:00 20:25 21:10 01:40 Resp 16 16 18 O2 Delivery Room Air Room Air Room Air Room Air 07/07/18 07/07/18 07/07/18 07/07/18 01:41 03:00 05:52 07:00 Temp 98.0 98.0 Pulse 110 Resp 18 18 16 16 B/P (MAP) 113/62 (79) Pulse Ox 93 O2 Delivery Room Air Room Air Room Air Room Air 07/07/18 07/07/18 07/07/18 07/07/18 07:00 08:00 09:26 10:02 Temp 98.1 98.1 Pulse 97 Resp 18 16 16 B/P (MAP) 114/50 (71) Pulse Ox 93 O2 Delivery Room Air Room Air Room Air Room Air 07/07/18 11:47 Temp 97.7 97.7 Pulse 96 Resp 18 B/P (MAP) 119/71 (87) Pulse Ox 93 O2 Delivery Room Air Intake and Output 07/06/18 07/06/18 07/07/18 15:00 23:00 07:00 Intake Total 640 ml 850 ml Output Total 1725 ml 1450 ml Balance -1085 ml -600 ml REBECCA JAIME MD Jul 07, 2018 13:53
[2018-07-07] MEDS ORDERED: HYDROmorphone 2 MG/ML VIAL IV ONE ×2 (14:15→14:45)
[2018-07-07 15:00] VITALS: BP 109/58
[2018-07-07 19:00] VITALS: BP 136/70
[2018-07-07] MEDS: NORTRIPTYLINE 25 MG CAPSULE PO SCH (20:55)
[2018-07-07] MEDS: ZINC SULFATE 220 MG CAPSULE. PO SCH (20:55)
[2018-07-07] MEDS: CITALOPRAM 10 MG TABLET. PO SCH (20:59)
[2018-07-07] MEDS: MULTIVITAMIN with MINERAL TABLET. PO SCH (20:59)
[2018-07-07 23:00] VITALS: BP 111/62
[2018-07-07] MEDS: HYDROmorphone 2 MG/ML VIAL IV PRN (23:40)
[2018-07-08 03:00] VITALS: BP 142/119
[2018-07-08] MEDS: MEROPENEM 500 MG in IV NORMAL SALINE 50ML 50 ML IV SCH ×3 (05:37→17:15)
[2018-07-08 06:28] LABS: CALCIUM 9.6 mg/dL (8.5-10.1); CREATININE 0.5 mg/dL (0.6-1.0); GFR 133.4; POTASSIUM 4.7 mmol/L (3.5-5.1)
[2018-07-08 06:32] LABS: BASO # 0.1 x10^3/uL (0.0-0.2); BASO % 1 % (0-3); EOS # 0.9 x10^3/uL (0.0-0.7); EOS % 7 % (0-3); HEMATOCRIT 34.8 % (36.0-47.0); HEMOGLOBIN 11.2 g/dL (12.0-15.5); LYMPH # 3.6 x10^3/uL (1.0-4.8); LYMPH % 30 % (24-48); MEAN CORPUSCULAR HEMOGLOBIN 27 pg (25-35); MEAN CORPUSCULAR HGB CONC 32 g/dL (31-37); MEAN CORPUSCULAR VOLUME 82 fL (79-100); MONO # 0.8 x10^3/uL (0.0-1.1); MONO % 7 % (0-9); NEUT # 6.7 x10^3uL (1.8-7.7); NEUT % 55 % (31-73); PLATELET COUNT 425 x10^3/uL (140-400); RED BLOOD COUNT 4.22 x10^6/uL (3.50-5.40); RED CELL DISTRIBUTION WIDTH 17.2 % (11.5-14.5); WHITE BLOOD COUNT 12.2 x10^3/uL (4.0-11.0)
[2018-07-08 07:00] VITALS: BP 101/44
[2018-07-08] MEDS: ENOXAPARIN 40 MG/0.4 ML SYRINGE. SQ SCH (07:49)
[2018-07-08] MEDS ORDERED: HYDROmorphone 2 MG/ML VIAL IV PRN (08:00)
--- NOTE | 2018-07-08 08:09 | PDOC ---
PROGRESS NOTES Chief Complaint Chief Complaint Complicated UTI proteus multidrug resistance Indwelling suprapubic catheter since transverse myelitis 3 years ago GNR bacteremia pseudomonas GNR sepsis with no organ dysfunction Fevers resolved Bedbound Sacral decubitus secondary to immobility stage IV hypokalemia constipation chronic History of Present Illness History of Present Illness Admitted for complicated MDR proteus UTI and GNR bacteremia with pseudomonas with sepsis. She has no complaints, some mild redness or discharge around the supra pubic cath - started bactroban thursday Vidal has been changed this admission-they change it every monthly She is bed bound from transverse myelitis x 3 yrs and has stage 5 sacral She has very good attitude and outlook in life despite her medical condition Complicated UTI proteus multidrug resistance Indwelling suprapubic catheter since transverse myelitis 3 years ago GNR bacteremia pseudomonas GNR sepsis with no organ dysfunction Fevers resolved Bedbound Sacral decubitus secondary to immobility stage IV hypokalemia constipation chronic plan: fu with ID,switch back to meropenum fu with uro, suprapubic cath changed add stool softner remove old picc line ,new PICC will dc back to SNF Vitals Vitals Vital Signs Date Time Temp Pulse Resp B/P (MAP) Pulse Ox O2 Delivery O2 Flow Rate FiO2 07/08/18 03:50 18 96 Room Air 2.0 07/08/18 03:00 98.1 75 142/119 (127) 98.1 Physical Exam Physical Exam GENERAL: Propped up in bed, alert, NAD HEENT: Oral cavity clear NECK: Supple. LUNGS: Clear. HEART: S1 and S2 regular. ABDOMEN: Obese, soft, SPC intact/clean EXTREMITIES: BLE 2+ edema. No cyanosis SKIN: Sacral decubitus, which is to the bone. UPSTAIRS MAID: Alert and oriented x 3. Paraplegic. Right-sided tunneled PICC (over 4 months old per pt) clean General: Oriented X3, Cooperative Heart: Regular rate, Normal S1, Normal S2 Lungs: Clear Abdomen: Normal bowel sounds, Other (indwelling suprapubic catheter with some redness or discharge around the area) Extremities: No clubbing, No cyanosis Labs LABS Laboratory Tests Test 07/08/18 05:20 White Blood Count 12.2 x10^3/uL (4.0-11.0) Red Blood Count 4.22 x10^6/uL (3.50-5.40) Hemoglobin 11.2 g/dL (12.0-15.5) Hematocrit 34.8 % (36.0-47.0) Mean Corpuscular Volume 82 fL (79-100) Mean Corpuscular Hemoglobin 27 pg (25-35) Mean Corpuscular Hemoglobin Concent 32 g/dL (31-37) Red Cell Distribution Width 17.2 % (11.5-14.5) Platelet Count 425 x10^3/uL (140-400) Neutrophils (%) (Auto) 55 % (31-73) Lymphocytes (%) (Auto) 30 % (24-48) Monocytes (%) (Auto) 7 % (0-9) Eosinophils (%) (Auto) 7 % (0-3) Basophils (%) (Auto) 1 % (0-3) Neutrophils # (Auto) 6.7 x10^3uL (1.8-7.7) Lymphocytes # (Auto) 3.6 x10^3/uL (1.0-4.8) Monocytes # (Auto) 0.8 x10^3/uL (0.0-1.1) Eosinophils # (Auto) 0.9 x10^3/uL (0.0-0.7) Basophils # (Auto) 0.1 x10^3/uL (0.0-0.2) Sodium Level 138 mmol/L (136-145) Potassium Level 4.7 mmol/L (3.5-5.1) Chloride Level 100 mmol/L (98-107) Carbon Dioxide Level 29 mmol/L (21-32) Anion Gap 9 (6-14) Blood Urea Nitrogen 19 mg/dL (7-20) Creatinine 0.5 mg/dL (0.6-1.0) Estimated GFR (Cockcroft-Gault) 133.4 Glucose Level 97 mg/dL (70-99) Calcium Level 9.6 mg/dL (8.5-10.1) Assessment and Plan Assessmemt and Plan Problems Medical Problems: (1) Complication, suprapubic catheter obstruction Status: Acute (2) Urinary tract infection associated with catheterization of urinary tract Status: Acute Comment Review of Relevant I have reviewed the following items roque (where applicable) has been applied. Labs Laboratory Tests Test 07/07/18 05:50 07/08/18 05:20 White Blood Count 9.1 x10^3/uL (4.0-11.0) 12.2 x10^3/uL (4.0-11.0) Red Blood Count 4.20 x10^6/uL (3.50-5.40) 4.22 x10^6/uL (3.50-5.40) Hemoglobin 11.4 g/dL (12.0-15.5) 11.2 g/dL (12.0-15.5) Hematocrit 34.3 % (36.0-47.0) 34.8 % (36.0-47.0) Mean Corpuscular Volume 82 fL (79-100) 82 fL (79-100) Mean Corpuscular Hemoglobin 27 pg (25-35) 27 pg (25-35) Mean Corpuscular Hemoglobin Concent 33 g/dL (31-37) 32 g/dL (31-37) Red Cell Distribution Width 17.3 % (11.5-14.5) 17.2 % (11.5-14.5) Platelet Count 392 x10^3/uL (140-400) 425 x10^3/uL (140-400) Neutrophils (%) (Auto) 47 % (31-73) 55 % (31-73) Lymphocytes (%) (Auto) 37 % (24-48) 30 % (24-48) Monocytes (%) (Auto) 7 % (0-9) 7 % (0-9) Eosinophils (%) (Auto) 8 % (0-3) 7 % (0-3) Basophils (%) (Auto) 1 % (0-3) 1 % (0-3) Neutrophils # (Auto) 4.3 x10^3uL (1.8-7.7) 6.7 x10^3uL (1.8-7.7) Lymphocytes # (Auto) 3.4 x10^3/uL (1.0-4.8) 3.6 x10^3/uL (1.0-4.8) Monocytes # (Auto) 0.6 x10^3/uL (0.0-1.1) 0.8 x10^3/uL (0.0-1.1) Eosinophils # (Auto) 0.7 x10^3/uL (0.0-0.7) 0.9 x10^3/uL (0.0-0.7) Basophils # (Auto) 0.1 x10^3/uL (0.0-0.2) 0.1 x10^3/uL (0.0-0.2) Sodium Level 139 mmol/L (136-145) 138 mmol/L (136-145) Potassium Level 4.5 mmol/L (3.5-5.1) 4.7 mmol/L (3.5-5.1) Chloride Level 102 mmol/L (98-107) 100 mmol/L (98-107) Carbon Dioxide Level 28 mmol/L (21-32) 29 mmol/L (21-32) Anion Gap 9 (6-14) 9 (6-14) Blood Urea Nitrogen 16 mg/dL (7-20) 19 mg/dL (7-20) Creatinine 0.5 mg/dL (0.6-1.0) 0.5 mg/dL (0.6-1.0) Estimated GFR (Cockcroft-Gault) 133.4 133.4 Glucose Level 112 mg/dL (70-99) 97 mg/dL (70-99) Calcium Level 9.3 mg/dL (8.5-10.1) 9.6 mg/dL (8.5-10.1) Laboratory Tests Test 07/08/18 05:20 White Blood Count 12.2 x10^3/uL (4.0-11.0) Red Blood Count 4.22 x10^6/uL (3.50-5.40) Hemoglobin 11.2 g/dL (12.0-15.5) Hematocrit 34.8 % (36.0-47.0) Mean Corpuscular Volume 82 fL (79-100) Mean Corpuscular Hemoglobin 27 pg (25-35) Mean Corpuscular Hemoglobin Concent 32 g/dL (31-37) Red Cell Distribution Width 17.2 % (11.5-14.5) Platelet Count 425 x10^3/uL (140-400) Neutrophils (%) (Auto) 55 % (31-73) Lymphocytes (%) (Auto) 30 % (24-48) Monocytes (%) (Auto) 7 % (0-9) Eosinophils (%) (Auto) 7 % (0-3) Basophils (%) (Auto) 1 % (0-3) Neutrophils # (Auto) 6.7 x10^3uL (1.8-7.7) Lymphocytes # (Auto) 3.6 x10^3/uL (1.0-4.8) Monocytes # (Auto) 0.8 x10^3/uL (0.0-1.1) Eosinophils # (Auto) 0.9 x10^3/uL (0.0-0.7) Basophils # (Auto) 0.1 x10^3/uL (0.0-0.2) Sodium Level 138 mmol/L (136-145) Potassium Level 4.7 mmol/L (3.5-5.1) Chloride Level 100 mmol/L (98-107) Carbon Dioxide Level 29 mmol/L (21-32) Anion Gap 9 (6-14) Blood Urea Nitrogen 19 mg/dL (7-20) Creatinine 0.5 mg/dL (0.6-1.0) Estimated GFR (Cockcroft-Gault) 133.4 Glucose Level 97 mg/dL (70-99) Calcium Level 9.6 mg/dL (8.5-10.1) Microbiology 07/04/18 Blood Culture - Preliminary, Resulted NO GROWTH AFTER 3 DAYS 06/30/18 Urine Culture - Final, Complete 06/30/18 Urine Culture Result 1 (JESIKA) - Final, Complete 06/30/18 Antimicrobic Susceptibility - Final, Complete 06/30/18 Aerobic Culture - Preliminary, Resulted 06/30/18 Aerobic Culture Result 1 (JESIKA) - Preliminary, Resulted 06/30/18 Aerobic Culture Result 2 (JESIKA) - Preliminary, Resulted 06/30/18 Antimicrobic Susceptibility - Preliminary, Resulted 06/30/18 Gram Stain - Final, Resulted 06/30/18 Gram Stain Result 1 (JESIKA) - Final, Resulted 06/30/18 Gram Stain Result 2 (JESIKA) - Final, Resulted 06/30/18 Gram Stain Result 3 (JESIKA) - Final, Resulted Medications Current Medications Sodium Chloride 1,000 ml @ 1,000 mls/hr Q1H IV Last administered on at 18:39; Start 06/30/18 at 18:19; Stop 06/30/18 at 19:18; Status DC Hydromorphone HCl (Dilaudid) 2 mg 1X ONCE IV Last administered on 06/30/18at 18:39; Start 06/30/18 at 18:30; Stop 06/30/18 at 18:31; Status DC Ondansetron HCl (Zofran) 4 mg 1X ONCE IV Last administered on 06/30/18at 18:39 ; Start 06/30/18 at 18:30; Stop 06/30/18 at 18:31; Status DC Alteplase, Recombinant (Cathflo) 2 mg 1X ONCE INT CAT Last administered on at 18:40; Start 06/30/18 at 18:45; Stop 06/30/18 at 18:46; Status DC Ceftriaxone Sodium 50 ml @ 100 mls/hr 1X ONCE IV Last administered on at 20:07; Start 06/30/18 at 20:15; Stop 06/30/18 at 20:44; Status DC Acetaminophen (Tylenol) 1,000 mg 1X ONCE PO Last administered on 06/30/18at 20 :28; Start 06/30/18 at 20:30; Stop 06/30/18 at 20:31; Status DC Hydromorphone HCl (Dilaudid) 0.5 mg PRN Q4HRS PRN IV PAIN Last administered on 07/07/18at 23:40; Start 06/30/18 at 22:15 Ondansetron HCl (Zofran) 4 mg PRN Q6HRS PRN IV NAUSEA/VOMITING; Start at 22:15 Oxycodone HCl (Roxicodone) 30 mg PRN Q4HRS PRN PO PAIN SEVERE Last administered on 07/08/18at 02:47; Start 06/30/18 at 23:45 Oxycodone HCl (OxyCONTIN) 20 mg Q12HR PO Last administered on 07/07/18at 20:58 ; Start 07/01/18 at 09:00 Acetaminophen (Tylenol) 650 mg PRN Q6HRS PRN PO FEVER Last administered on at 12:34; Start 07/01/18 at 04:15; Stop 07/01/18 at 13:59; Status DC Vancomycin HCl 1 gm/Sodium Chloride 250 ml @ 250 mls/hr 1X ONCE IV ; Start at 10:30; Stop 07/01/18 at 11:29; Status UNV Ceftriaxone Sodium 1 gm/ Dextrose 50 ml @ 100 mls/hr Q12H IV ; Start 07/01/18 at 10:30; Status UNV Ceftriaxone Sodium (Rocephin) 1 gm Q12H IVP ; Start 07/01/18 at 10:45; Stop at 10:45; Status DC Vancomycin HCl (Vanco Per Pharmacy) 1 each PRN DAILY PRN MC SEE COMMENTS; Start 07/01/18 at 10:45; Stop 07/01/18 at 10:45; Status DC Vancomycin HCl 2 gm/Sodium Chloride 500 ml @ 250 mls/hr 1X ONCE IV Last administered on 07/01/18at 11:05; Start 07/01/18 at 11:00; Stop 07/01/18 at 12 :59; Status DC Meropenem 500 mg/ Sodium Chloride 50 ml @ 100 mls/hr Q8HRS IV Last administered on 07/05/18at 06:00; Start 07/01/18 at 11:00; Stop 07/05/18 at 13 :20; Status DC Acetaminophen (Tylenol) 1,000 mg PRN Q6HRS PRN PO MILD PAIN / TEMP Last administered on 07/01/18at 21:57; Start 07/01/18 at 13:30 Ascorbic Acid (Vitamin C) 500 mg BID PO Last administered on 07/07/18at 20:58; Start 07/01/18 at 21:00 Baclofen (Lioresal) 10 mg PRN TID PRN PO MUSCLE SPASMS Last administered on at 05:51; Start 07/01/18 at 13:30 Bisacodyl (Dulcolax Supp) 10 mg PRN DAILY PRN RC CONSTIPATION; Start 07/01/18 at 13:30; Stop 07/05/18 at 12:01; Status DC Cetirizine HCl (ZyrTEC) 10 mg DAILY PO Last administered on 07/07/18at 09:27; Start 07/01/18 at 14:01 Citalopram Hydrobromide (CeleXA) 10 mg QHS PO Last administered on 07/07/18at 20:59; Start 07/01/18 at 21:00 Clotrimazole (Lotrimin) 1 lisa PRN BID PRN TP RASH; Start 07/01/18 at 13:30 Cyanocobalamin (Vitamin B-12) 1,000 mcg QMONTH IM Last administered on at 16:10; Start 07/01/18 at 15:00 Lactulose (Lactulose) 10 gm PRN BID PRN PO CONSTIPATION Last administered on at 16:44; Start 07/01/18 at 13:30; Stop 07/05/18 at 19:15; Status DC Multivitamins (Thera M Plus) 1 tab QHS PO Last administered on 07/07/18at 20:59 ; Start 07/01/18 at 21:00 Sodium Monofluorophosphate (Fleet Adult) 133 ml 1X PRN PRN RC CONSTIPATION; Start 07/01/18 at 13:30 Nortriptyline HCl (Pamelor) 25 mg QHS PO Last administered on 07/07/18at 20:55 ; Start 07/01/18 at 21:00 Senna/Docusate Sodium (Senna Plus) 2 tab BID PO Last administered on at 20:59; Start 07/01/18 at 21:00 Silver Sulfadiazine (Silvadene) 1 lisa DAILY TP ; Start 07/01/18 at 15:00 Zinc Sulfate (Orazinc) 220 mg QHS PO Last administered on 07/07/18at 20:55; Start 07/01/18 at 21:00 Non-Formulary Medication (Amino Acids/ Protein Hydrolys (Prosource No Carb Liquid Pkt)) 30 ml BID PO ; Start 07/01/18 at 21:00; Status UNV Multivitamins (Thera M Plus) 1 tab DAILY PO ; Start 07/01/18 at 15:00; Status Cancel Buspirone HCl (Buspar) 7.5 mg TID PO Last administered on 07/07/18at 20:57; Start 07/01/18 at 15:00 Hydrocortisone (Cortaid) 1 lisa PRN TID PRN TP ITCHING; Start 07/01/18 at 15:00 Polysaccharide Iron Complex (Niferex 150) 150 mg DAILY PO Last administered on 07/07/18at 09:27; Start 07/01/18 at 15:00 Lactobacillus Rhamnosus (Culturelle) 1 cap BID PO Last administered on 20:58; Start 07/01/18 at 21:00 Pantoprazole Sodium (Protonix) 40 mg DAILYAC PO Last administered on 05:50; Start 07/01/18 at 16:30 Artificial Tears (Artificial Tears) 1 drop PRN Q2HRS PRN OU DRY EYE; Start at 15:00; Status Cancel Saliva Substitute (Biotene Moisturizing Mouth) 2 spray PRN Q2HRS PRN PO DRY MOUTH; Start 07/01/18 at 15:00; Status Cancel Enoxaparin Sodium (Lovenox 40mg Syringe) 40 mg BID SQ Last administered on 09:25; Start 07/01/18 at 15:00 Sodium Chloride 1,000 ml @ 100 mls/hr Q10H IV Last administered on 07/03/18 03:45; Start 07/01/18 at 13:45; Stop 07/03/18 at 08:18; Status DC Artificial Tears (Artificial Tears) 1 drop PRN Q2HRS PRN OU DRY EYE Last administered on 07/06/18 21:11; Start 07/01/18 at 15:15 Saliva Substitute (Biotene Moisturizing Mouth) 2 spray PRN Q2HRS PRN PO DRY MOUTH Last administered on 07/06/18 21:11; Start 07/01/18 at 15:30 Nystatin (Nystop) 1 lisa BID TP Last administered on 07/07/18 21:01; Start at 22:00 Potassium Chloride (Klor-Con) 40 meq 1X ONCE PO Last administered on 08:45; Start 07/02/18 at 07:30; Stop 07/02/18 at 07:31; Status DC Potassium Chloride (Klor-Con) 40 meq 1X ONCE PO Last administered on 09:24; Start 07/03/18 at 08:30; Stop 07/03/18 at 08:31; Status DC Potassium Chloride (Klor-Con) 40 meq DAILYWBKFT PO Last administered on 09:25; Start 07/04/18 at 08:00 Mupirocin (Bactroban) 1 lisa BID TP Last administered on 10/31/18at 21:01; Start 07/03/18 at 11:00 Alteplase, Recombinant (Cathflo) 2 mg 1X ONCE INT CAT Last administered on at 12:42; Start 07/04/18 at 12:30; Stop 07/04/18 at 12:31; Status DC Senna/Docusate Sodium (Senna Plus) 1 tab BID PO ; Start 07/05/18 at 21:00; Status UNV Docusate Sodium (Colace) 100 mg BID PO Last administered on 07/07/18at 20:59; Start 07/05/18 at 12:30 Magnesium Hydroxide (Milk Of Magnesia) 2,400 mg PRN Q12HR PRN PO CONSTIPATION, 1ST CHOICE Last administered on 07/06/18at 04:03; Start 07/05/18 at 12:00 Lactulose (Lactulose) 20 gm PRN Q12HR PRN PO CONSTIPATION, 2ND CHOICE; Start 07/05/18 at 12:00 Bisacodyl (Dulcolax Supp) 10 mg PRN DAILY PRN AK CONSTIPATION; Start 07/05/18 at 12:00 Cefepime HCl 2 gm/ Dextrose 100 ml @ 200 mls/hr Q8HRS IV Last administered on 07/07/18at 05:52; Start 07/05/18 at 14:00; Stop 07/07/18 at 12:44; Status DC Magnesium Citrate (Citroma) 296 ml PRN 1X PRN PO CONSTIPATION 3RD CHOICE; Start 07/06/18 at 10:45 Diphenhydramine HCl (Benadryl) 25 mg PRN Q6HRS PRN PO ITCHING; Start 07/06/18 at 10:45 Meropenem 500 mg/ Sodium Chloride 50 ml @ 100 mls/hr Q6HRS IV Last administered on 07/08/18at 05:37; Start 07/07/18 at 13:00 Hydromorphone HCl (Dilaudid) 2 mg 1X ONCE IV Last administered on 07/07/18at 14:14; Start 07/07/18 at 14:15; Stop 07/07/18 at 14:16; Status DC Hydromorphone HCl (Dilaudid) 2 mg 1X ONCE IV ; Start 07/07/18 at 14:45; Stop 07/07/18 at 14:46; Status Cancel Hydromorphone HCl (Dilaudid) 2 mg 1X PRN PRN IV PRIOR TO PICC; Start 07/08/18 at 08:00; Stop 07/08/18 at 21:00 Active Scripts Active Reported Silvadene (Silver Sulfadiazine) 20 Gm Cream..g. 1 Lisa TP DAILY Lotrimin Af (Clotrimazole) 12 Gm Cream..g. 1 Lisa TP PRN BID PRN Hydrocortisone (Hydrocortisone Acetate) 28 Gm Oint...g. 28 Gm TP PRN TID PRN Cyanocobalamin Injection (Cyanocobalamin (Vitamin B-12)) 1,000 Mcg/1 Ml Vial 1 Ml IM QMONTH Visine Tears Drops (Peg 400/Hypromellose/Glycerin) 15 Ml Drops 15 Ml OP PRN Q2HR PRN Lactulose 20 Gm/30 Ml Solution 10 Gm PO PRN BID PRN Fleet Enema (Na Phos,M-B/Na Phos,Di-Ba) 133 Ml Enema 133 Ml RC PRN PRN Bisacodyl 10 Mg Supp.rect 10 Mg RC PRN DAILY PRN Biotene (Saliva Substitution Combo No.9) 1,000 Ml Mouthwash 1,000 Ml MM PRN Q2HR PRN Baclofen 10 Mg Tablet 1 Tab PO PRN TID PRN Acetaminophen 500 Mg Tablet 2 Tab PO PRN Q6HRS PRN Zinc Sulfate 220 Mg Capsule 220 Mg PO QHS Thera M Plus Tablet (Multivits,Ca,Minerals/Iron/FA) 1 Each Tablet 1 Each PO QHS Nortriptyline Hcl 25 Mg Capsule 1 Cap PO QHS Citalopram Hbr (Citalopram Hydrobromide) 10 Mg Tablet 1 Tab PO QHS Buspirone Hcl 15 Mg Tablet 7.5 Tab PO TID Vitamin C (Ascorbic Acid) 500 Mg Tablet 500 Mg PO BID Senexon-S Tablet (Sennosides/Docusate Sodium) 1 Each Tablet 2 Each PO BID Prosource No Carb Liquid Pkt (Amino Acids/Protein Hydrolys) 30 Ml Liquid.pkt 30 Ml PO BID Zion Packet (Argin/Glut/Cahmb/Collag/Mv-Min) 1 Each Powd.pack 1 Each PO BID Culturelle (Lactobacillus Rhamnosus Gg) 1 Each Capsule 1 Each PO BID Poly-Iron 150 Forte Capsule (Iron Ps Cmplx/Vit B12/Fa) 1 Each Capsule 1 Each PO DAILY Protonix (Pantoprazole Sodium) 20 Mg Tablet.dr 40 Mg PO DAILY Cetirizine Hcl 10 Mg Tablet 1 Tab PO DAILY Roxicodone (Oxycodone Hcl) 30 Mg Tablet 30 Mg PO Q4HRS PRN Oxycontin (Oxycodone HCl) 20 Mg Tab.er.12h 20 Mg PO BID Vitals/I & O Vital Sign - Last 24 Hours 07/07/18 07/07/18 07/07/18 07/07/18 09:26 10:02 11:47 14:14 Temp 97.7 97.7 Pulse 96 Resp 16 16 18 18 B/P (MAP) 119/71 (87) Pulse Ox 93 O2 Delivery Room Air Room Air Room Air Room Air 07/07/18 07/07/18 07/07/18 07/07/18 14:44 15:00 16:23 19:00 Temp 97.9 97.7 97.9 97.7 Pulse 90 81 Resp 16 18 16 17 B/P (MAP) 109/58 (75) 136/70 (92) Pulse Ox 94 97 O2 Delivery Room Air Room Air Room Air Room Air 07/07/18 07/07/18 07/07/18 07/07/18 20:00 20:58 20:59 23:00 Temp 98.3 98.3 Pulse 64 Resp 20 18 16 B/P (MAP) 111/62 (78) Pulse Ox 94 94 94 O2 Delivery Room Air Room Air Room Air Room Air 07/07/18 07/08/18 07/08/18 07/08/18 23:40 00:15 01:00 02:47 Resp 22 18 18 18 Pulse Ox 94 94 94 94 O2 Delivery Room Air Room Air Room Air Room Air 07/08/18 07/08/18 03:00 03:50 Temp 98.1 98.1 Pulse 75 Resp 17 18 B/P (MAP) 142/119 (127) Pulse Ox 96 96 O2 Delivery Nasal Cannula Room Air O2 Flow Rate 2.0 2.0 Intake and Output 07/07/18 07/07/18 07/08/18 15:00 23:00 07:00 Intake Total 550 ml Output Total 2050 ml Balance -1500 ml MARGARITA WEI MD Jul 08, 2018 08:09
[2018-07-08] MEDS: SENNOSIDES/DOCUSATE 8.6/50MG TABLET. PO SCH (08:10)
[2018-07-08] MEDS: POTASSIUM CHLORIDE 20 MEQ TABLET.ER. PO SCH (08:11)
[2018-07-08] MEDS: busPIRone 5 MG TABLET. PO SCH ×2 (08:11→14:00)
[2018-07-08] MEDS: LACTOBACILLUS RHAMNOSUS GG 1 CAPSULE. PO SCH (08:11)
[2018-07-08] MEDS: oxyCODONE ER 10 MG TAB.ER.12H PO SCH (08:11)
[2018-07-08] MEDS: ASCORBIC ACID 500 MG TABLET PO SCH (08:11)
[2018-07-08] MEDS: CETIRIZINE HCL 10 MG TABLET. PO SCH (08:11)
[2018-07-08] MEDS: MUPIROCIN 2 % TOPICAL CREAM 15GM TUBE. TP SCH (08:12)
[2018-07-08] MEDS: IRON POLYSACCHARIDE COMPLEX 150 MG CAPSULE PO SCH (08:12)
[2018-07-08] MEDS: NYSTATIN TOPICAL POWDER 15GM BOTTLE. TP SCH (08:12)
[2018-07-08] MEDS: PANTOPRAZOLE 40 MG TABLET.DR. PO SCH (08:12)
[2018-07-08] MEDS: silver sulfADIAZINE 1% CREAM 25GM TUBE. TP SCH (08:12)
[2018-07-08] MEDS: DOCUSATE SODIUM 100 MG CAPSULE. PO SCH (08:12)
[2018-07-08] MEDS: POLYVINYL ALCOHOL 1.4% OPHTH SOLUTION 15ML BOTTLE. OU PRN (08:14)
--- NOTE | 2018-07-08 10:48 | DISCH ---
DISCHARGE WITH HOME HEALTH DISCHARGE INFORMATION: Discharge Date: Jul 08, 2018 Final Diagnosis: Problems Medical Problems: (1) Complication, suprapubic catheter obstruction Status: Acute (2) Urinary tract infection associated with catheterization of urinary tract Status: Acute will need to treat for a total of 2 weeks for PSAE and proteus infections Weekly labs cbc/bun/cr, fax: [phone] Condition on Discharge: Stable CODE STATUS: Code Status: Full HOME HEALTH: Face to Face: I certify this patient is under my care and that I, or a nurse practitioner or physician's child center assistant working with me, had a face to face encounter that meets the physician face to face encounter requirements with this patient on 07/08/18. Usp For: IV Infusion Therapy Home Health Aide For: Self-care Pt Meets Homebound Status: Other: (Paraplegia) POST DISCHARGE ORDERS: Activity Instructions for Disc: Activity as tolerated Weight Bearing Status after Di: As tolerated DIET AFTER DISCHARGE: Regular Wound/Incision Care: Routine catheter care, Other, see below CHECKS AFTER DISCHARGE: Checks after discharge: Check blood press - daily FOLLOW-UP: Follow up with: Daily merrem 14 days Follow Up With: Weekly labs cbc/bun/cr, fax: [phone] DC TO SNF LABS: Weekly labs cbc/bun/cr, fax: [phone] TREATMENT/EQUIPMENT ORDERS: Adaptive Equipment Issued: None Infusion Equipment, home use: PICC Line CERTIFICATION STATEMENT: Certification Statement: Certification Statement: Based on the above finding, I certify that this patient is confined to the home and needs intermittent jail care, physical therapy and/or speech therapy, or continues to need occupational therapy.~ This patient is under my care, and I have initiated the establishment of the plan of care.~ This patient will be followed by myself or a community physician who will periodically review the plan of care. Home Meds Reported Medications Silver Sulfadiazine (SILVADENE) 20 Gm Cream..g., 1 SOHA TP DAILY, #50 GM 04/23/18 Clotrimazole (LOTRIMIN AF) 12 Gm Cream..g., 1 SOHA TP PRN BID PRN for RASH, #24 GM 1 Refill 04/23/18 Hydrocortisone Acetate (HYDROCORTISONE) 28 Gm Oint...g., 28 GM TP PRN TID PRN for ITCHING, MISC 04/23/18 Cyanocobalamin (Vitamin B-12) (CYANOCOBALAMIN INJECTION) 1,000 Mcg/1 Ml Vial, 1 ML IM QMONTH, #1 VIAL 3 Refills 04/23/18 Peg 400/Hypromellose/Glycerin (VISINE TEARS DROPS) 15 Ml Drops, 15 ML OP PRN Q2HR PRN for DRY EYE, DROP 04/23/18 Lactulose (LACTULOSE) 20 Gm/30 Ml Solution, 10 GM PO PRN BID PRN for CONSTIPATION, MISC 04/23/18 Na Phos,M-B/Na Phos,Di-Ba (FLEET ENEMA) 133 Ml Enema, 133 ML RC PRN PRN for CONSTIPATION, EACH 04/23/18 Bisacodyl (BISACODYL) 10 Mg Supp.rect, 10 MG RC PRN DAILY PRN for CONSTIPATION, SUPP.RECT 0 Refills 04/23/18 Saliva Substitution Combo No.9 (Biotene) 1,000 Ml Mouthwash, 1000 ML MM PRN Q2HR PRN for DRY MOUTH, MISC 04/23/18 Baclofen (BACLOFEN) 10 Mg Tablet, 1 TAB PO PRN TID PRN for MUSCLE SPASMS, #90 TAB 2 Refills 04/23/18 Acetaminophen (ACETAMINOPHEN) 500 Mg Tablet, 2 TAB PO PRN Q6HRS PRN for MILD PAIN / TEMP, #60 TAB 04/23/18 Zinc Sulfate (ZINC SULFATE) 220 Mg Capsule, 220 MG PO QHS, CAP 04/23/18 Multivits,Ca,Minerals/Iron/FA (Thera M Plus Tablet) 1 Each Tablet, 1 EACH PO QHS , TAB 04/23/18 Nortriptyline Hcl (NORTRIPTYLINE HCL) 25 Mg Capsule, 1 CAP PO QHS, #30 CAP 3 Refills 04/23/18 Citalopram Hydrobromide (CITALOPRAM HBR) 10 Mg Tablet, 1 TAB PO QHS, #30 TAB 3 Refills 04/23/18 Buspirone Hcl (BUSPIRONE HCL) 15 Mg Tablet, 7.5 TAB PO TID, #60 TAB 04/23/18 Ascorbic Acid (VITAMIN C) 500 Mg Tablet, 500 MG PO BID, TAB 04/23/18 Sennosides/Docusate Sodium (SENEXON-S TABLET) 1 Each Tablet, 2 EACH PO BID, TAB 04/23/18 Amino Acids/Protein Hydrolys (PROSOURCE NO CARB LIQUID PKT) 30 Ml Liquid.pkt, 30 ML PO BID, PKT 04/23/18 Argin/Glut/Cahmb/Collag/Mv-Min (Zion Packet) 1 Each Powd.pack, 1 EACH PO BID, PKT 04/23/18 Lactobacillus Rhamnosus Gg (CULTURELLE) 1 Each Capsule, 1 EACH PO BID, CAP 04/23/18 Iron Ps Cmplx/Vit B12/Fa (POLY-IRON 150 FORTE CAPSULE) 1 Each Capsule, 1 EACH PO DAILY, CAP 04/23/18 Pantoprazole Sodium (PROTONIX) 20 Mg Tablet.dr, 40 MG PO DAILY, TAB 04/23/18 Cetirizine Hcl (CETIRIZINE HCL) 10 Mg Tablet, 1 TAB PO DAILY, #30 TAB 5 Refills 04/23/18 Oxycodone Hcl (ROXICODONE) 30 Mg Tablet, 30 MG PO Q4HRS PRN for PAIN, TAB 04/22/18 Oxycodone Hcl (OXYCONTIN) 20 Mg Tab.er.12h, 20 MG PO BID for PAIN, TAB 04/22/18 MARGARITA WEI MD Jul 08, 2018 10:48
[2018-07-08 11:00] VITALS: BP 119/54
[2018-07-08] MEDS ORDERED: LIDOCAINE 1%/EPI 1:100,000 20 ML VIAL. ONE (12:52)
[2018-07-08] MEDS ORDERED: HEPARIN PF 500 UNIT/5 ML DISP.SYRIN. IV ONE ×2 (12:52→13:30)
[2018-07-08] MEDS ORDERED: MIDAZOLAM HCL/PF 2 MG/2 ML VIAL. ONE (13:11)
[2018-07-08] MEDS ORDERED: MIDAZOLAM HCL/PF 2 MG/2 ML VIAL. IV ONE (13:30)
[2018-07-08] MEDS ORDERED: LIDOCAINE 1%/EPI 1:100,000 20 ML VIAL. INJ ONE (13:30)
[2018-07-08 13:53] VITALS: BP 125/53
[2018-07-08 15:00] VITALS: BP 140/78
--- NOTE | 2018-07-08 15:35 | RAD ---
07/08/2018 3:29 PM Procedure: 1.Ultrasound and fluoroscopically guided placement of tunnel central venous catheter. 2. Removal of right internal jugular tunneled central venous catheter Clinical Indication: FPC antibiotic therapy,,SACRAL WOUND POWERLINE Sedation: Conscious sedation was administered for 30 minutes. The patient was monitored by a qualified independent observer throughout the time of sedation. Please refer to the medical record for exact doses of medications utilized to achieve moderate sedation. Fluoroscopy time: 0.8 MIN Dose area product: 2 Gycm2 Consent: The procedure was explained in its entirety to the patient or the patients designated service support representative by a member of the treatment team, including a discussion of the risks, benefits and commonly accepted alternatives to the procedure, as well as the expected consequences of no therapy whatsoever. Discussion of the risks included, but was not limited to, those that are most frequent and those that are rare but possibly severe or life-threatening, as well as the possibility of unforeseen complications. Sterility: All elements of maximal sterile barrier technique including the use of a cap, mask, sterile gown, sterile gloves, large sterile sheet, appropriate hand hygiene, and 2% chlorhexidine for cutaneous antisepsis (or acceptable alternative antiseptic per current guidelines) were followed for this procedure. Technique and Findings: Following informed consent, the patient was prepped and draped in the usual sterile fashion. Ultrasound interrogation of the left neck revealed patency and compressibility of the left internal jugular vein. A 21-gauge micropuncture was then used to gain access to this vein under ultrasound guidance. A hard copy ultrasound image was recorded. The needle was exchanged over a wire for a sheath. A small incision was made several centimeters inferior to the left clavicle. A power line was trimmed to length, advanced from the small skin incision to the venotomy site, and then advanced through a peel-away sheath to the level of the cavoatrial junction. Catheter was found to flush and aspirate normally. Catheter was secured in place with 2-0 Prolene suture and a sterile dressing was applied. Catheter was packed with heparin per protocol. The neck dermatotomy was closed with Dermabond. No immediate complications were identified. The pre-existing tunnel right internal jugular central venous catheter was removed with traction. Sterile dressings were applied. Impression 1.: Successful ultrasound and fluoroscopically guided placement of a left internal jugular tunneled central venous catheter 2. Removal of right internal jugular tunneled central venous catheter
--- NOTE | 2018-07-08 16:24 | DISCH ---
DISCHARGE DISCHARGE INFORMATION: DISCHARGE DATE: Jul 08, 2018 FINAL DIAGNOSIS Problems Medical Problems: (1) Complication, suprapubic catheter obstruction Status: Acute (2) Urinary tract infection associated with catheterization of urinary tract Status: Acute CONDITION ON DISCHARGE: Stable CODE STATUS: Code Status: Full LONG-TERM: SNF STAY <30 DAYS: No HOSPICE: HOSPICE: No HOSPICE EVAL & TREAT: No LTAC: ADMIT TO LTAC: No POST DISCHARGE ORDERS: ACTIVITY ORDERS: Activity as tolerated WEIGHT BEARING STATUS: As tolerated DIET AFTER DISCHARGE: Regular WOUND/INCISION CARE: Routine catheter care, Other, see below CHECKS AFTER DISCHARGE: CHECKS AFTER DISCHARGE: Check blood press - daily FOLLOW-UP: PHYSICIAN FOLLOW-UP: Daily merrem 14 days ADDITIONAL FOLLOW-UP: Weekly labs cbc/bun/cr, fax: [phone] LAB ORDERS FOR FOLLOW-UP: Weekly labs cbc/bun/cr, fax: [phone] TREATMENT/EQUIPMENT ORDERS: ADAPTIVE EQUIPMENT NEEDED: None INFUSION EQUIPMENT NEEDED: PICC Line DISCHARGE MEDICATIONS: Home Meds Reported Medications Silver Sulfadiazine (SILVADENE) 20 Gm Cream..g., 1 SOHA TP DAILY, #50 GM 04/23/18 Clotrimazole (LOTRIMIN AF) 12 Gm Cream..g., 1 SOHA TP PRN BID PRN for RASH, #24 GM 1 Refill 04/23/18 Hydrocortisone Acetate (HYDROCORTISONE) 28 Gm Oint...g., 28 GM TP PRN TID PRN for ITCHING, MISC 04/23/18 Cyanocobalamin (Vitamin B-12) (CYANOCOBALAMIN INJECTION) 1,000 Mcg/1 Ml Vial, 1 ML IM QMONTH, #1 VIAL 3 Refills 04/23/18 Peg 400/Hypromellose/Glycerin (VISINE TEARS DROPS) 15 Ml Drops, 15 ML OP PRN Q2HR PRN for DRY EYE, DROP 04/23/18 Lactulose (LACTULOSE) 20 Gm/30 Ml Solution, 10 GM PO PRN BID PRN for CONSTIPATION, MISC 04/23/18 Na Phos,M-B/Na Phos,Di-Ba (FLEET ENEMA) 133 Ml Enema, 133 ML RC PRN PRN for CONSTIPATION, EACH 04/23/18 Bisacodyl (BISACODYL) 10 Mg Supp.rect, 10 MG RC PRN DAILY PRN for CONSTIPATION, SUPP.RECT 0 Refills 04/23/18 Saliva Substitution Combo No.9 (Biotene) 1,000 Ml Mouthwash, 1000 ML MM PRN Q2HR PRN for DRY MOUTH, MISC 04/23/18 Baclofen (BACLOFEN) 10 Mg Tablet, 1 TAB PO PRN TID PRN for MUSCLE SPASMS, #90 TAB 2 Refills 04/23/18 Acetaminophen (ACETAMINOPHEN) 500 Mg Tablet, 2 TAB PO PRN Q6HRS PRN for MILD PAIN / TEMP, #60 TAB 04/23/18 Zinc Sulfate (ZINC SULFATE) 220 Mg Capsule, 220 MG PO QHS, CAP 04/23/18 Multivits,Ca,Minerals/Iron/FA (Thera M Plus Tablet) 1 Each Tablet, 1 EACH PO QHS , TAB 04/23/18 Nortriptyline Hcl (NORTRIPTYLINE HCL) 25 Mg Capsule, 1 CAP PO QHS, #30 CAP 3 Refills 04/23/18 Citalopram Hydrobromide (CITALOPRAM HBR) 10 Mg Tablet, 1 TAB PO QHS, #30 TAB 3 Refills 04/23/18 Buspirone Hcl (BUSPIRONE HCL) 15 Mg Tablet, 7.5 TAB PO TID, #60 TAB 04/23/18 Ascorbic Acid (VITAMIN C) 500 Mg Tablet, 500 MG PO BID, TAB 04/23/18 Sennosides/Docusate Sodium (SENEXON-S TABLET) 1 Each Tablet, 2 EACH PO BID, TAB 04/23/18 Amino Acids/Protein Hydrolys (PROSOURCE NO CARB LIQUID PKT) 30 Ml Liquid.pkt, 30 ML PO BID, PKT 04/23/18 Argin/Glut/Cahmb/Collag/Mv-Min (Zion Packet) 1 Each Powd.pack, 1 EACH PO BID, PKT 04/23/18 Lactobacillus Rhamnosus Gg (CULTURELLE) 1 Each Capsule, 1 EACH PO BID, CAP 04/23/18 Iron Ps Cmplx/Vit B12/Fa (POLY-IRON 150 FORTE CAPSULE) 1 Each Capsule, 1 EACH PO DAILY, CAP 04/23/18 Pantoprazole Sodium (PROTONIX) 20 Mg Tablet.dr, 40 MG PO DAILY, TAB 04/23/18 Cetirizine Hcl (CETIRIZINE HCL) 10 Mg Tablet, 1 TAB PO DAILY, #30 TAB 5 Refills 04/23/18 Oxycodone Hcl (ROXICODONE) 30 Mg Tablet, 30 MG PO Q4HRS PRN for PAIN, TAB 04/22/18 Oxycodone Hcl (OXYCONTIN) 20 Mg Tab.er.12h, 20 MG PO BID for PAIN, TAB 04/22/18 MARGARITA WEI MD Jul 08, 2018 16:24
--- NOTE | 2018-07-12 10:53 | PDOC3 ---
Discharge Summary Visit Information Date of Admission: Jun 29, 2018 Date of Discharge: Jul 08, 2018 Admitting Diagnosis: SEPSIS Final Diagnosis Problems Medical Problems: (1) Complication, suprapubic catheter obstruction Status: Acute (2) Urinary tract infection associated with catheterization of urinary tract Status: Acute Brief Hospital Course Allergies Allergies Coded Allergies Type Severity Reaction Last Updated Verified adhesive Allergy Intermediate 07/01/18 Yes codeine Allergy Intermediate 04/22/18 Yes fentanyl Allergy Intermediate 04/22/18 Yes metronidazole Allergy Intermediate 04/22/18 Yes morphine Allergy Intermediate 04/22/18 Yes piperacillin Allergy Intermediate 04/22/18 Yes tazobactam Allergy Intermediate 04/22/18 Yes tramadol Allergy Intermediate 04/22/18 Yes I S O L A T I O N *CONTACT* Allergy Unknown 04/26/18 Yes Brief Hospital Course Admitted for complicated MDR proteus UTI and GNR bacteremia with pseudomonas with sepsis. She has no complaints, some mild redness or discharge around the supra pubic cath - started bactroban thursday Vidal has been changed this admission-they change it every monthly She is bed bound from transverse myelitis x 3 yrs and has stage 5 sacral She has very good attitude and outlook in life despite her medical condition Complicated UTI proteus multidrug resistance Indwelling suprapubic catheter since transverse myelitis 3 years ago GNR bacteremia pseudomonas GNR sepsis with no organ dysfunction Fevers resolved Bedbound Sacral decubitus secondary to immobility stage IV hypokalemia constipation chronic plan: fu with ID,switch back to meropenum fu with uro, suprapubic cath changed add stool softner remove old picc line ,new PICC will dc back to SNF Discharge Information Condition at Discharge: Improved Follow Up: Weeks (1) Disposition/Orders: D/C to Another Facility ([facility]) Scheduled Amino Acids/Protein Hydrolys (Prosource No Carb Liquid Pkt) 30 Ml Liquid.pkt, 30 ML PO BID, (Reported) Entered as Reported by: SELIN MCDANIEL on 04/23/18 1640 Last Action: Converted on 07/01/181326 by ZENY CALI MD Argin/Glut/Cahmb/Collag/Mv-Min (Zion Packet) 1 Each Powd.pack, 1 EACH PO BID, ( Reported) Entered as Reported by: SELIN MCDANIEL on 04/23/18 1640 Last Action: Converted on 07/01/181326 by ZENY CALI MD Ascorbic Acid (Vitamin C) 500 Mg Tablet, 500 MG PO BID, (Reported) Entered as Reported by: SELIN MCDANIEL on 04/23/181639 Last Action: Continued on 07/01/181326 by ZENY CALI MD Buspirone Hcl (Buspirone Hcl) 15 Mg Tablet, 7.5 TAB PO TID, #60 (Reported) Entered as Reported by: SELIN MCDANIEL on 04/23/181639 Last Action: Converted on 07/01/181326 by ZENY CALI MD Cetirizine Hcl (Cetirizine Hcl) 10 Mg Tablet, 1 TAB PO DAILY, #30 Ref 5 ( Reported) Entered as Reported by: SELIN MCDANIEL on 04/23/181639 Last Action: Continued on 07/01/181326 by ZENY CALI MD Citalopram Hydrobromide (Citalopram Hbr) 10 Mg Tablet, 1 TAB PO QHS, #30 Ref 3 ( Reported) Entered as Reported by: SELIN MCDANIEL on 04/23/181639 Last Action: Continued on 07/01/181326 by ZENY CALI MD Cyanocobalamin (Vitamin B-12) (Cyanocobalamin Injection) 1,000 Mcg/1 Ml Vial, 1 ML IM QMONTH, #1 Ref 3 (Reported) Entered as Reported by: SELIN MCDANIEL on 04/23/181913 Last Action: Continued on 07/01/181326 by ZENY CALI MD Iron Ps Cmplx/Vit B12/Fa (Poly-Iron 150 Forte Capsule) 1 Each Capsule, 1 EACH PO DAILY, (Reported) Entered as Reported by: SELIN MCDANIEL on 04/23/181639 Last Action: Converted on 07/01/181326 by ZENY CALI MD Lactobacillus Rhamnosus Gg (Culturelle) 1 Each Capsule, 1 EACH PO BID, (Reported ) Entered as Reported by: SELIN MCDANIEL on 04/23/181639 Last Action: Converted on 07/01/181326 by ZENY CALI MD Multivits,Ca,Minerals/Iron/FA (Thera M Plus Tablet) 1 Each Tablet, 1 EACH PO QHS , (Reported) Entered as Reported by: SELIN MCDANIEL on 04/23/181704 Last Action: Continued on 07/01/181326 by ZENY CALI MD Nortriptyline Hcl (Nortriptyline Hcl) 25 Mg Capsule, 1 CAP PO QHS, #30 Ref 3 ( Reported) Entered as Reported by: SELIN MCDANIEL on 04/23/181704 Last Action: Continued on 07/01/181326 by ZENY CALI MD Oxycodone Hcl (Oxycontin) 20 Mg Tab.er.12h, 20 MG PO BID for PAIN, (Reported) Entered as Reported by: JAX TRAN on 04/22/185 Last Action: Converted on 06/30/182340 by VERONA FRASER Pantoprazole Sodium (Protonix) 20 Mg Tablet.dr, 40 MG PO DAILY, (Reported) Entered as Reported by: SELIN MCDANIEL on 04/23/181639 Last Action: Converted on 07/01/181326 by ZENY CALI MD Sennosides/Docusate Sodium (Senexon-S Tablet) 1 Each Tablet, 2 EACH PO BID, ( Reported) Entered as Reported by: SELIN MCDANIEL on 04/23/181639 Last Action: Continued on 07/01/181326 by ZENY CALI MD Silver Sulfadiazine (Silvadene) 20 Gm Cream..g., 1 SOHA TP DAILY, #50 (Reported) Entered as Reported by: SELIN MCDANIEL on 04/23/181913 Last Action: Continued on 07/01/181326 by ZENY CALI MD Zinc Sulfate (Zinc Sulfate) 220 Mg Capsule, 220 MG PO QHS, (Reported) Entered as Reported by: SELIN MCDANIEL on 04/23/181704 Last Action: Continued on 07/01/181326 by ZENY CALI MD Scheduled PRN Acetaminophen (Acetaminophen) 500 Mg Tablet, 2 TAB PO PRN Q6HRS PRN for MILD PAIN / TEMP, #60 (Reported) Entered as Reported by: SELIN MCDANIEL on 04/23/181704 Last Action: Continued on 07/01/181326 by ZENY CALI MD Baclofen (Baclofen) 10 Mg Tablet, 1 TAB PO PRN TID PRN for MUSCLE SPASMS, #90 Ref 2 (Reported) Entered as Reported by: SELIN MCDANIEL on 04/23/181704 Last Action: Continued on 07/01/181326 by ZENY CALI MD Bisacodyl (Bisacodyl) 10 Mg Supp.rect, 10 MG RC PRN DAILY PRN for CONSTIPATION, Ref 0 (Reported) Entered as Reported by: SELIN MCDANIEL on 04/23/181704 Last Action: Continued on 07/01/181326 by ZENY CALI MD Clotrimazole (Lotrimin Af) 12 Gm Cream..g., 1 SOHA TP PRN BID PRN for RASH, #24 Ref 1 (Reported) Entered as Reported by: SELIN MCDANIEL on 04/23/181913 Last Action: Continued on 07/01/181326 by ZENY CALI MD Hydrocortisone Acetate (Hydrocortisone) 28 Gm Oint...g., 28 GM TP PRN TID PRN for ITCHING, (Reported) Entered as Reported by: SELIN MCDANIEL on 04/23/181913 Last Action: Converted on 07/01/181326 by ZENY CALI MD Lactulose (Lactulose) 20 Gm/30 Ml Solution, 10 GM PO PRN BID PRN for CONSTIPATION, (Reported) Entered as Reported by: SELIN MCDANIEL on 04/23/181913 Last Action: Continued on 07/01/181326 by MD Maren REYNOLDS,M-B/Maren Phos,Di-Ba (Fleet Enema) 133 Ml Enema, 133 ML RC PRN PRN for CONSTIPATION, (Reported) Entered as Reported by: SELIN MCDANIEL on 04/23/181704 Last Action: Continued on 07/01/181326 by ZENY CALI MD Oxycodone Hcl (Roxicodone) 30 Mg Tablet, 30 MG PO Q4HRS PRN for PAIN, (Reported) Entered as Reported by: JAX TRAN on 04/22/185 Last Action: Continued on 06/30/182340 by VERONA FRASER Peg 400/Hypromellose/Glycerin (Visine Tears Drops) 15 Ml Drops, 15 ML OP PRN Q2HR PRN for DRY EYE, (Reported) Entered as Reported by: SELIN MCDANIEL on 04/23/181913 Last Action: Converted on 07/01/181326 by ZENY CALI MD Saliva Substitution Combo No.9 (Biotene) 1,000 Ml Mouthwash, 1,000 ML MM PRN Q2HR PRN for DRY MOUTH, (Reported) Entered as Reported by: SELIN MCDANIEL on 04/23/18 170 Last Action: Converted on 07/01/181326 by MD ERIBERTO REYNOLDS CHRISTOPHER S MD Jul 12, 2018 10:53
== END 2018-07-08 18:24 | disposition home or self-care (01) | DRG 698 ==
LOC: ER 17:29 → 5 NORTH 21:30
PROVIDERS: ADMIT Internal Medicine; ATTEND Internal Medicine
PROC: 0JH63XZ Insertion of Tunneled Vascular Access Device into Chest Subcutaneous Tissue and Fascia, Percutaneous Approach (ICD-10-PCS; principal; 2018-07-08)
PROC: 02HV33Z Insertion of Infusion Device into Superior Vena Cava, Percutaneous Approach (ICD-10-PCS; 2018-07-08)
PROC: B5181ZA Fluoroscopy of Superior Vena Cava using Low Osmolar Contrast, Guidance (ICD-10-PCS; 2018-07-08)
PROC: B548ZZA Ultrasonography of Superior Vena Cava, Guidance (ICD-10-PCS; 2018-07-08)
PROC: 05PY33Z Removal of Infusion Device from Upper Vein, Percutaneous Approach (ICD-10-PCS; 2018-07-08)
PROC: 0JPV3XZ Removal of Tunneled Vascular Access Device from Upper Extremity Subcutaneous Tissue and Fascia, Percutaneous Approach (ICD-10-PCS; 2018-07-08)
DX: T83.511A Infection and inflammatory reaction due to indwelling urethral catheter, initial encounter (principal); A41.59 Other Gram-negative sepsis; L89.154 Pressure ulcer of sacral region, stage 4; E43 Unspecified severe protein-calorie malnutrition; G37.3 Acute transverse myelitis in demyelinating disease of central nervous system; G82.20 Paraplegia, unspecified; T83.090A Other mechanical complication of cystostomy catheter, initial encounter; N39.0 Urinary tract infection, site not specified; Y84.6 Urinary catheterization as the cause of abnormal reaction of the patient, or of later complication, without mention of misadventure at the time of the procedure; B96.4 Proteus (mirabilis) (morganii) as the cause of diseases classified elsewhere; E87.6 Hypokalemia; I11.0 Hypertensive heart disease with heart failure; G89.4 Chronic pain syndrome; K59.09 Other constipation; I50.9 Heart failure, unspecified; Z16.24 Resistance to multiple antibiotics; Z74.01 Bed confinement status; Z68.39 Body mass index [BMI] 39.0-39.9, adult; Y92.89 Other specified places as the place of occurrence of the external cause; Z86.14 Personal history of Methicillin resistant Staphylococcus aureus infection; Z79.899 Other long term (current) drug therapy; Z88.5 Allergy status to narcotic agent; Z88.8 Allergy status to other drugs, medicaments and biological substances; Z80.9 Family history of malignant neoplasm, unspecified; Z82.49 Family history of ischemic heart disease and other diseases of the circulatory system
CPT/HCPCS: 36415; 36558; 51702; 71045; 76937; 77001; 80048; 80053; 81001; 83605; 84132; 85007; 85025; 87040; 87070; 87086; 87186; 87205; 87641; 96374; 99152; 99153; C1751; C1892; J0690; J0692; J1170; J1650; J2185; J2250; J2405; J2997; J3370; J3420; J3490; J7030; J7040; 99285-25